=== PATIENT | female | born 1935 | race Caucasian/White ===

== ENCOUNTER 2016-08-09 03:51 | Emergency (ER) | payer OTHER ==
[~2016-08-09] VITALS: Ht 152.4 cm; Wt 62.0 kg
[~2016-08-09 03:51] MED LIST: CIPR500T4 PO; LOSA25TA31 PO; METR-1 PO; OMEP20TA PO
[2016-08-09 04:02] VITALS: BP 182/77; PULSE 75; RESP 18; O2SAT 98
[2016-08-09 04:06] VITALS: BP 138/71; PULSE 73; RESP 16; TEMP 98; O2SAT 97
--- NOTE | 2016-08-09 04:25 | PD ---
HPI Chief Complaint: Chest Pain Time Seen by Provider: 04:24 Travel History International Travel<30 days: No Contact w/Intl Traveler<30days: No Traveled to known affect area: No History of Present Illness HPI The patient is an 80-year-old female with no known history of heart disease who took Alvin aspirin and then a soft drink. She started to belch at approximately 0700 yesterday and began getting chest pain. She notices that when she lies down the pain comes on and when she sits up for a while the pain goes away. She denies any nausea, shortness of breath, diaphoresis or radiation of the pain. PFSH Past Medical History Asthma: Yes High Cholesterol: Yes Diabetes: Yes (DIET CONTROLLED) Patient Takes Glucophage: No GERD: Yes Hypertension: Yes Immunizations Current: Yes Influenza Vaccination: No Menopausal: Yes Past Surgical History Appendectomy: Yes Cholecystectomy: Yes Hysterectomy: Yes Social History Alcohol Use: No Tobacco Use: No Substance Use: No Allergies-Medications (Allergen,Severity, Reaction): Coded Allergies: Lipitor (Verified Allergy, Severe, MUSCLE PAIN, 08/09/16) Lovastatin (Verified Allergy, Severe, MUSCLE SPASM/PAIN, 08/09/16) Reported Meds & Prescriptions Reported Meds & Active Scripts Active Flagyl (Metronidazole) 500 Mg Tab 500 Mg PO BID Cipro (Ciprofloxacin HCl) 500 Mg Tab 500 Mg PO BID 7 Days Reported Cozaar (Losartan Potassium) 25 Mg Tab 25 Mg PO DAILY Omeprazole 20 mg (Omeprazole) 20 Mg Tab 20 Mg PO DAILY Review of Systems Except as stated in HPI: all other systems reviewed are Neg Physical Exam Narrative GENERAL: The patient is alert, oriented 3 in no apparent distress. Her vital signs show blood pressure 182/77 but are otherwise normal. The patient appears pale and anemic. SKIN: Focused skin assessment warm/dry. No skin rash is noted. HEAD: Atraumatic. Normocephalic. EYES: Pupils equal and round. No scleral icterus. No injection or drainage. ENT: No nasal bleeding or discharge. Mucous membranes pink and moist. NECK: Trachea midline. No JVD. CARDIOVASCULAR: Regular rate and rhythm. No murmur appreciated. RESPIRATORY: No accessory muscle use. Clear to auscultation. Breath sounds equal bilaterally. GASTROINTESTINAL: Abdomen soft, with tenderness to direct palpation in the midline epigastrium, nondistended. Hepatic and splenic margins not palpable. No guarding or rebound is present. MUSCULOSKELETAL: No obvious deformities. No clubbing. No cyanosis. No edema. NEUROLOGICAL: Awake and alert. No obvious cranial nerve deficits. Motor grossly within normal limits. Normal speech. PSYCHIATRIC: Appropriate mood and affect; insight and judgment normal. Data Data Last Documented VS Vital Signs Date Time Temp Pulse Resp B/P Pulse Ox O2 Delivery O2 Flow Rate FiO2 08/09/16 05:39 69 16 123/53 98 Room Air 08/09/16 04:06 98.0 Orders Electrocardiogram (08/09/16 04:25) Ckmb (Isoenzyme) Profile (08/09/16 04:25) Complete Blood Count With Diff (08/09/16 04:25) Comprehensive Metabolic Panel (08/09/16 04:25) Magnesium (Mg) (08/09/16 04:25) Troponin I (08/09/16 04:25) Ecg Monitoring (08/09/16 04:25) Iv Access Insert/Monitor (08/09/16 04:25) Oximetry (08/09/16 04:25) Oxygen Administration (08/09/16 04:25) Sodium Chloride 0.9% Flush (Ns Flush) (08/09/16 04:30) Chest, Pa & Lat (08/09/16 04:25) Famotidine (Pepcid) (08/09/16 04:30) Al-Mag Hy-Si 40-40-4 Mg/Ml Liq (Mag-Al P (08/09/16 04:30) Labs Laboratory Tests Test 08/09/16 04:25 White Blood Count 7.4 TH/MM3 Red Blood Count 4.13 MIL/MM3 Hemoglobin 8.5 GM/DL Hematocrit 28.5 % Mean Corpuscular Volume 68.9 FL Mean Corpuscular Hemoglobin 20.7 PG Mean Corpuscular Hemoglobin 30.0 % Concent Red Cell Distribution Width 18.0 % Platelet Count 161 TH/MM3 Mean Platelet Volume 11.1 FL Neutrophils (%) (Auto) 55.2 % Lymphocytes (%) (Auto) 23.3 % Monocytes (%) (Auto) 14.7 % Eosinophils (%) (Auto) 5.2 % Basophils (%) (Auto) 1.6 % Neutrophils # (Auto) 4.1 TH/MM3 Lymphocytes # (Auto) 1.7 TH/MM3 Monocytes # (Auto) 1.1 TH/MM3 Eosinophils # (Auto) 0.4 TH/MM3 Basophils # (Auto) 0.1 TH/MM3 CBC Comment AUTO DIFF Differential Comment AUTO DIFF CONFIRMED Platelet Estimate NORMAL Platelet Morphology Comment ENLARGED Sodium Level 143 MEQ/L Potassium Level 3.7 MEQ/L Chloride Level 109 MEQ/L Carbon Dioxide Level 27.3 MEQ/L Anion Gap 7 MEQ/L Blood Urea Nitrogen 10 MG/DL Creatinine 0.68 MG/DL Estimat Glomerular Filtration 83 ML/MIN Rate Random Glucose 121 MG/DL Calcium Level 8.9 MG/DL Magnesium Level 1.9 MG/DL Total Bilirubin 0.3 MG/DL Aspartate Amino Transf 33 U/L (AST/SGOT) Alanine Aminotransferase 19 U/L (ALT/SGPT) Alkaline Phosphatase 194 U/L Total Creatine Kinase 89 U/L Troponin I LESS THAN 0.02 NG/ML Total Protein 7.7 GM/DL Albumin 3.5 GM/DL MDM Medical Decision Making Medical Screen Exam Complete: Yes Emergency Medical Condition: Yes Medical Record Reviewed: Yes Interpretation(s) The EKG shows sinus rhythm with a rate of [address] elevation or depression. The chest x-ray shows no acute disease. The CBC shows a hemoglobin of 8.5 with hematocrit of 28.5 but is otherwise unremarkable. The MCV, MCH and MCHC values are all low. The complete metabolic profile shows an alkaline phosphatase of 194 but is otherwise normal. The troponin I is less than 0.02. The urine shows trace ketones, small leukocyte esterase with 9-14 white cells and occasional white cell clumping's and few bacteria and culture is indicated. Differential Diagnosis GERD, acute coronary syndromeunlikely, esophageal pain, pleuritic pain, gastrointestinal pain, musculoskeletal pain, anemia, electrolyte disorder, urinary tract infection Narrative Course The patient has gastro- esophageal reflux disease. She also has a chronic anemia and the hemoglobin is now 8.5. About a year ago was 9.4. The parameter suggest iron deficiency type anemia. She also has a urinary tract infection. She'll be given Macrobid twice daily for 10 days, Zantac, elevate the head of her bed, follow-up with her primary care physician this week about the anemia Procedures EKG Prior to Arrival: No Diagnosis Primary Impression: Anemia Additional Impressions: GERD with esophagitis Urinary tract infection Additional Instructions: As we discussed, follow-up with your primary care physician this week about the anemia. In the meantime, you should take vitamins with iron. The urinary antibiotic is one tablet twice daily for 10 days and the Zantac is twice daily. The Zantac is to cut down on the acid in her stomach. Zantac works along with omeprazole to do this. Also, try to avoid the lying flat position. Elevate the head of your bed so that the gastric acid cannot reach your esophagus. Med/Other Pt SpecificInfo: Prescription(s) given Scripts Nitrofurantoin Monohydrate Macrocrystals (Macrobid)100 Mg [id number] Mg PO BID 10 Days Ref 0 Prov:Bakari Gonzalez MD 08/09/16 Ranitidine (Zantac)150 Mg [id number] Mg PO BID #60 TAB Ref 0 Prov:Bakari Gonzalez MD 08/09/16 Disposition: 01 DISCHARGE HOME Condition: Stable Bakari Gonzalez MD August 09, 2016 04:25
[2016-08-09] MEDS ORDERED: FAMOTIDINE 20 MG TAB PO ONE (04:30)
[2016-08-09] MEDS ORDERED: SODIUM CHLORIDE 0.9% FLUSH 10 ML FLUSH IVF PRN (04:30)
[2016-08-09] MEDS ORDERED: ALUMINUM/MAGNESIUM/SIMETH 30 ML CUP PO ONE (04:30)
[2016-08-09 04:43] LABS: AUTOMATED NEUTROPHIL # 4.1 TH/MM3 (1.8-7.7); BASOPHIL # 0.1 TH/MM3 (0-0.2); BASOPHIL % 1.6 % (0.0-2.0); EOSINOPHIL # 0.4 TH/MM3 (0-0.4); EOSINOPHIL % 5.2 % (0.0-4.0); HEMATOCRIT 28.5 % (35.0-46.0); LYMPH % 23.3 % (9.0-44.0); LYMPHOCYTE # 1.7 TH/MM3 (1.0-4.8); MEAN CELL VOLUME 68.9 FL (80.0-100.0); MEAN CORPUSCULAR HEMOGLOBIN 20.7 PG (27.0-34.0); MONO % 14.7 % (0.0-8.0); NEUT % 55.2 % (16.0-70.0); PLATELET COUNT 161 TH/MM3 (150-450); RED BLOOD COUNT 4.13 MIL/MM3 (4.00-5.30); WHITE BLOOD COUNT 7.4 TH/MM3 (4.0-11.0)
[2016-08-09 04:47] LABS: HEMO FLAGS AUTO DIFF
[2016-08-09 04:49] LABS: CHLORIDE 109 MEQ/L (98-107); POTASSIUM 3.7 MEQ/L (3.5-5.1); SODIUM (NA) 143 MEQ/L (136-145)
[2016-08-09 04:53] LABS: ANION GAP 7 MEQ/L (5-15); BICARBONATE 27.3 MEQ/L (21.0-32.0); BLOOD UREA NITROGEN 10 MG/DL (7-18); MAGNESIUM 1.9 MG/DL (1.5-2.5)
[2016-08-09 04:56] LABS: ALT (GPT) 19 U/L (10-53); AST (GOT) 33 U/L (15-37); GLOMERULAR FILTRATION RATE 83 ML/MIN (>89)
[2016-08-09 04:58] LABS: TOTAL BILIRUBIN ADULT 0.3 MG/DL (0.2-1.0)
[2016-08-09 04:59] LABS: ALKALINE PHOSPHATASE 194 U/L (45-117)
--- NOTE | 2016-08-09 05:01 | RADHPO ---
EXAM DATE/TIME: 08/09/2016 04:36 [facility] COMPARISON: CHEST SINGLE AP, November 22, 2013, 16:40. CT ABDOMEN & PELVIS W CONTRAST, July 19, 2015, 12:16. INDICATIONS : Chest pain MEDICAL HISTORY : Hypertension. Diabetes mellitus type II. SURGICAL HISTORY : Hysterectomy. Cholecystectomy. ENCOUNTER: Initial ACUITY: 1 day PAIN SCORE: 7/10 LOCATION: Left chest FINDINGS: PA and lateral views of the chest demonstrate the lungs to be symmetrically aerated without evidence of mass, infiltrate or effusion. The cardiomediastinal contours are unremarkable. Osseous structure s are intact. CONCLUSION: No acute disease. Demetrius Pineda MD on August 09, 2016 at 4:59 Board Certified Radiologist. This report was verified electronically.
[2016-08-09 05:31] LABS: PLATELET ESTIMATE SMEAR NORMAL (NORMAL); PLATELET MORPHOLOGY ENLARGED (NORMAL); SCAN/DIFF AUTO DIFF CONFIRMED
[2016-08-09 05:32] LABS: CREATINE KINASE 89 U/L (26-192)
[2016-08-09 05:39] VITALS: BP 123/53; PULSE 69; RESP 16; O2SAT 98
[2016-08-09] MEDS ORDERED: ZANT150T2 PO (06:04)
[2016-08-09] MEDS ORDERED: MACR100C2 PO (06:04)
[2016-08-09] MEDS ORDERED: NITROFURANTOIN MONOHYD MACROCR 100 MG CAP PO ONE (06:15)
--- NOTE | 2016-08-09 11:20 | EKG ---
Date Performed: 08/09/2016 Time Performed: 03:52:02 PTAGE: 80 years EKG: Sinus rhythm Inferior/lateral ST-T changes are nonspecific Borderline ECG Compared to prior electrocardiogram,ST- T wave changes are present and premature atrial contractions are no longer present. PREVIOUS TRACING : 11/22/2013 16.23 DOCTOR: Dallas Mancia Interpretating Date/Time 08/09/2016 11:19:37
== END 2016-08-09 06:21 | disposition home or self-care (01) ==
LOC: PHED 03:51
DX: D64.9 Anemia, unspecified (principal); K21.0 Gastro-esophageal reflux disease with esophagitis; N39.0 Urinary tract infection, site not specified; J45.909 Unspecified asthma, uncomplicated; E78.00 Pure hypercholesterolemia, unspecified; E11.9 Type 2 diabetes mellitus without complications; I10 Essential (primary) hypertension; Z79.899 Other long term (current) drug therapy
CPT/HCPCS: 71020; 80053; 82550; 83735; 84484; 85025; 93005; 99285

== ENCOUNTER 2016-09-20 12:06 | Inpatient (IN) | payer OTHER, MEDICARE ==
[~2016-09-20] VITALS: Ht 152.4 cm; Wt 64.0 kg
[~2016-09-20 12:06] MED LIST changes: +MACR100C2 PO; +ZANT150T2 PO
[2016-09-20 12:08] VITALS: BP 165/70; PULSE 90; RESP 20; TEMP 98.4; O2SAT 97
--- NOTE | 2016-09-20 12:13 | PD ---
Physical Exam Time Seen by Provider: 12:10 Narrative 80 y/o female here for evaluation of diarrhea for 2 days, lower abdominal pain for 2 weeks. +nausea, decreased appetite. Vital signs reviewed. Seen at triage desk. Awaiting bed placement. Data Data Last Documented VS Vital Signs Date Time Temp Pulse Resp B/P Pulse Ox O2 Delivery O2 Flow Rate FiO2 09/20/16 12:08 98.4 90 20 165/70 97 Room Air [facility] Medical Record Reviewed: Yes Supervised Visit with SYLVIA: Timi No Sep 20, 2016 12:13
[2016-09-20] MEDS ORDERED: LOSA25TA PO (12:29)
[2016-09-20] MEDS ORDERED: OMEP20TA PO (12:29)
[2016-09-20] MEDS ORDERED: SODIUM CHLOR 0.9% 1000 ML INJ 1,000 ML IV SCH (12:37)
--- NOTE | 2016-09-20 12:37 | PD ---
HPI Chief Complaint: Abdominal Pain Time Seen by Provider: 12:37 Travel History International Travel<30 days: No Contact w/Intl Traveler<30days: No Traveled to known affect area: No History of Present Illness HPI 80-year-old female with history of hypertension, asthma, diabetes, presents to the emergency department for evaluation of abdominal pain. Patient states approximately 6 weeks ago she was diagnosed with a UTI. She was started on oral antibiotics and subsequently developed diarrhea. Patient states she has developed increasing abdominal pain or across the lower aspect of her abdomen over the last 2-3 days. No black tarry her frequent stools. Patient has also had no appetite. She states she has only had a piece of dry toast today. She has no other symptoms to report this time. [facility] Past Medical History Asthma: Yes Cardiovascular Problems: Yes (htn) High Cholesterol: Yes Diabetes: Yes (DIET CONTROLLED) Patient Takes Glucophage: No Diminished Hearing: No GERD: Yes Hypertension: Yes Immunizations Current: Yes Tetanus Vaccination: > 5 Years Influenza Vaccination: No Menopausal: Yes Past Surgical History Appendectomy: Yes Cholecystectomy: Yes Hysterectomy: Yes Social History Alcohol Use: No Tobacco Use: No Substance Use: No (pt denies) Allergies-Medications (Allergen,Severity, Reaction): Coded Allergies: Lipitor (Verified Allergy, Severe, MUSCLE PAIN, 09/20/16) Lovastatin (Verified Allergy, Severe, MUSCLE SPASM/PAIN, 09/20/16) Reported Meds & Prescriptions Reported Meds & Active Scripts Active Reported Omeprazole 20 Mg Tab 20 Mg PO DAILY Losartan (Losartan Potassium) 25 Mg Tab 25 Mg PO DAILY Review of Systems Except as stated in HPI: all other systems reviewed are Neg Physical Exam Narrative GENERAL: Well-nourished elderly female patient, sitting in bed, in no acute distress SKIN: Focused skin assessment warm/dry. HEAD: Atraumatic. Normocephalic. EYES: Pupils equal and round. No scleral icterus. No injection or drainage. ENT: No nasal bleeding or discharge. Mucous membranes pink and moist. NECK: Trachea midline. No JVD. CARDIOVASCULAR: Regular rate and rhythm. No murmur appreciated. RESPIRATORY: No accessory muscle use. Clear to auscultation. Breath sounds equal bilaterally. GASTROINTESTINAL: Abdomen soft, nondistended. Generalized tenderness to palpation of the abdomen, greater right upper and lower quadrant. No guarding. No rebound tenderness. Hepatic and splenic margins not palpable. MUSCULOSKELETAL: No obvious deformities. No clubbing. No cyanosis. No edema. NEUROLOGICAL: Awake and alert. No obvious cranial nerve deficits. Motor grossly within normal limits. Normal speech. PSYCHIATRIC: Appropriate mood and affect; insight and judgment normal. Data Data Last Documented VS Vital Signs Date Time Temp Pulse Resp B/P Pulse Ox O2 Delivery O2 Flow Rate FiO2 09/20/16 12:38 16 98 Room Air 09/20/16 12:08 98.4 90 165/70 Orders Complete Blood Count With Diff (09/20/16 12:37) Comprehensive Metabolic Panel (09/20/16 12:37) Lipase (09/20/16 12:37) Prothrombin Time / Inr (Pt) (09/20/16 12:37) Act Partial Throm Time (Ptt) (09/20/16 12:37) Urinalysis - C+S If Indicated (09/20/16 12:37) Ct Abd/Pel W Iv Contrast(Rout) (09/20/16 12:37) Iv Access Insert/Monitor (09/20/16 12:37) Ecg Monitoring (09/20/16 12:37) Oximetry (09/20/16 12:37) Sodium Chlor 0.9% 1000 Ml Inj (Ns 1000 M (09/20/16 12:37) Sodium Chloride 0.9% Flush (Ns Flush) (09/20/16 12:45) Electrocardiogram (09/20/16 12:37) C Diff Toxin Pcr (09/20/16 13:24) Urine Culture (09/20/16 12:40) Iohexol 350 Inj (Omnipaque 350 Inj) (09/20/16 16:07) Lactic Acid Sepsis Protocol (09/20/16 16:30) Blood Culture (09/20/16 16:30) Blood Glucose (09/20/16 16:30) Oxygen Administration (09/20/16 16:30) Piperacil-Tazo 4.5 Gm Premix (Zosyn 4.5 (09/20/16 16:30) Metronidazole 500 Mg Inj (Flagyl 500 Mg (09/20/16 16:30) Admit Order (Ed Use Only) (09/20/16 16:53) Labs Laboratory Tests Test 09/20/16 09/20/16 12:40 16:50 White Blood Count 14.5 TH/MM3 Red Blood Count 4.22 MIL/MM3 Hemoglobin 8.9 GM/DL Hematocrit 29.6 % Mean Corpuscular Volume 70.1 FL Mean Corpuscular Hemoglobin 21.0 PG Mean Corpuscular Hemoglobin 30.0 % Concent Red Cell Distribution Width 20.7 % Platelet Count 167 TH/MM3 Mean Platelet Volume 10.7 FL Neutrophils (%) (Auto) 67.8 % Lymphocytes (%) (Auto) 12.2 % Monocytes (%) (Auto) 17.7 % Eosinophils (%) (Auto) 1.7 % Basophils (%) (Auto) 0.6 % Neutrophils # (Auto) 9.8 TH/MM3 Lymphocytes # (Auto) 1.8 TH/MM3 Monocytes # (Auto) 2.6 TH/MM3 Eosinophils # (Auto) 0.2 TH/MM3 Basophils # (Auto) 0.1 TH/MM3 CBC Comment AUTO DIFF Differential Comment AUTO DIFF CONFIRMED Platelet Estimate NORMAL Platelet Morphology Comment ENLARGED Prothrombin Time 12.0 SEC Prothromb Time International 1.1 RATIO Ratio Activated Partial 25.6 SEC Thromboplast Time Urine Color YELLOW Urine Turbidity HAZY Urine pH 5.5 Urine Specific [place] 1.017 Urine Protein TRACE mg/dL Urine Glucose (UA) NEG mg/dL Urine Ketones NEG mg/dL Urine Occult Blood NEG Urine Nitrite NEG Urine Bilirubin NEG Urine Urobilinogen 2.0 MG/DL Urine Leukocyte Esterase MOD Urine RBC 2 /hpf Urine WBC 15 /hpf Urine Squamous Epithelial 2 /hpf Cells Urine Hyaline Casts 1 /lpf Urine Mucus FEW /lpf Microscopic Urinalysis Comment CULTURE INDICATED Sodium Level 140 MEQ/L Potassium Level 4.0 MEQ/L Chloride Level 107 MEQ/L Carbon Dioxide Level 26.4 MEQ/L Anion Gap 7 MEQ/L Blood Urea Nitrogen 9 MG/DL Creatinine 0.72 MG/DL Estimat Glomerular Filtration 78 ML/MIN Rate Random Glucose 115 MG/DL Calcium Level 9.3 MG/DL Iron Level 36 MCG/DL Total Iron Binding Capacity 416 MCG/DL Percent Iron Saturation 8.7 % Ferritin 44 NG/ML Total Bilirubin 0.7 MG/DL Aspartate Amino Transf 84 U/L (AST/SGOT) Alanine Aminotransferase 34 U/L (ALT/SGPT) Alkaline Phosphatase 297 U/L Total Protein 7.7 GM/DL Albumin 3.1 GM/DL Lipase 147 U/L Lactic Acid Level 0.9 mmol/L [facility] Medical Decision Making Medical Screen Exam Complete: Yes Emergency Medical Condition: Yes Medical Record Reviewed: Yes Differential Diagnosis Cystitis versus pyelonephritis versus cholecystitis versus gastroenteritis versus colitis versus diverticulitis Narrative Course 80-year-old female presents to the emergency department for evaluation. Patient appears without distress. Her abdomen is soft but tender to palpate. Vital signs are stable. CBC is with leukocytosis of 14.5, neutrophilia of 9.8. Anemia with a hemoglobin of 8.9. CMP is with elevated AST 84, alkaline phosphatase is 297. Urinalysis is hazy with moderate leukocyte esterase, 15 WBC , few mucus, culture is indicated. Chest x-ray shows no acute disease. CT imaging of the abdomen and pelvis shows left hepatic lobe low attenuating mass may represent necrotic malignancy or abscess. Findings are suspicious for acute diverticulitis of sigmoid colon and the left hepatic lobe lesion could potentially be infection seeded from the colon. Underlying colonic malignancy however is difficult to exclude. There is hydronephrosis of the left kidney and hydroureter related to distal ureteral obstruction of above-mentioned inflammatory process. I have discussed the patient with Dr. Majano, general surgeon on-call. He requests mission the medicine and will consult on the patient. Patient is also given IV Zosyn and Flagyl. I have discussed with the patient her findings and plan for admission for further evaluation. She is in agreement with this plan of care. Diagnosis Primary Impression: Liver mass, left lobe Additional Impressions: Leukocytosis Qualified Code: D72.829 - Leukocytosis, unspecified type Anemia Qualified Code: D64.9 - Anemia, unspecified type Diverticulitis Qualified Code: K57.32 - Diverticulitis of large intestine without bleeding, unspecified complication status Admitting Information Admitting Physician Requests: Admit Condition: Stable Lavonne Russo Sep 20, 2016 12:37
[2016-09-20 12:38] VITALS: RESP 16; O2SAT 98
[2016-09-20] MEDS ORDERED: SODIUM CHLORIDE 0.9% FLUSH 10 ML FLUSH IV FLUSH PRN (12:45)
[2016-09-20 13:21] LABS: AUTOMATED NEUTROPHIL # 9.8 TH/MM3 (1.8-7.7); BASOPHIL # 0.1 TH/MM3 (0-0.2); BASOPHIL % 0.6 % (0.0-2.0); EOSINOPHIL # 0.2 TH/MM3 (0-0.4); EOSINOPHIL % 1.7 % (0.0-4.0); HEMATOCRIT 29.6 % (35.0-46.0); LYMPH % 12.2 % (9.0-44.0); LYMPHOCYTE # 1.8 TH/MM3 (1.0-4.8); MEAN CELL VOLUME 70.1 FL (80.0-100.0); MONO % 17.7 % (0.0-8.0); NEUT % 67.8 % (16.0-70.0); PLATELET COUNT 167 TH/MM3 (150-450); RED BLOOD COUNT 4.22 MIL/MM3 (4.00-5.30); RED CELL DISTRIBUTION WIDTH 20.7 % (11.6-17.2); WHITE BLOOD COUNT 14.5 TH/MM3 (4.0-11.0)
[2016-09-20 13:27] LABS: HEMO FLAGS AUTO DIFF
[2016-09-20 13:34] LABS: BLOOD, URINE NEG (NEG); COMMENT (UR) CULTURE INDICATED; CULTURE IF INDICATED CULTURE INDICATED; GLUCOSE,URINE NEG (NEG); HYALINE CAST, URINE 1 /lpf (RARE); KETONE, URINE NEG (NEG); MUCUS URINE FEW /lpf (OCC); NITRITE,URINE NEG (NEG); PH, URINE 5.5 (5.0-8.5); SQUAMOUS EPITHELIAL CELL URINE 2 /hpf (0-5); URINE COLOR YELLOW (YELLW/STRAW)
[2016-09-20 13:35] LABS: APTT (PATIENT) 25.6 SEC (24.3-30.1); INTERNATIONAL NORMALIZED RATIO 1.1 RATIO
[2016-09-20 13:43] LABS: ALKALINE PHOSPHATASE 297 U/L (45-117); ALT (GPT) 34 U/L (10-53); TOTAL BILIRUBIN ADULT 0.7 MG/DL (0.2-1.0)
[2016-09-20 13:45] LABS: ANION GAP 7 MEQ/L (5-15); AST (GOT) 84 U/L (15-37); BICARBONATE 26.4 MEQ/L (21.0-32.0); BLOOD UREA NITROGEN 9 MG/DL (7-18); CHLORIDE 107 MEQ/L (98-107); GLOMERULAR FILTRATION RATE 78 ML/MIN (>89); SODIUM (NA) 140 MEQ/L (136-145)
[2016-09-20 13:55] LABS: PLATELET ESTIMATE SMEAR NORMAL (NORMAL); PLATELET MORPHOLOGY ENLARGED (NORMAL); SCAN/DIFF AUTO DIFF CONFIRMED
[2016-09-20] MEDS ORDERED: IOHEXOL 350 MG/ML 10 ML VIAL (for RAD DIAG) IV ONE (16:07)
--- NOTE | 2016-09-20 16:28 | RADRPT ---
EXAM DATE/TIME: 09/20/2016 15:39 [facility] COMPARISON: CT ABDOMEN & PELVIS W CONTRAST, July 19, 2015, 12:16. INDICATIONS : Lower abdomen pain, increasing pain with eating and drinking. IV CONTRAST: 100 cc Omnipaque 350 (iohexol) IV ORAL CONTRAST: No oral contrast ingested. RADIATION DOSE: 11.89 CTDIvol (mGy) MEDICAL HISTORY : Cardiovascular disease. Hypertension. Diabetes SURGICAL HISTORY : Appendectomy. Cholecystectomy.Hysterectomy. ENCOUNTER: Initial ACUITY: 1 day PAIN SCALE: 4/10 LOCATION: Abdomen TECHNIQUE: Volumetric scanning of the abdomen and pelvis was performed. Using automated exposure control and ad justment of the mA and/or kV according to patient size, radiation dose was kept as low as reasonably achievable to obtain optimal diagnostic quality images. DICOM format image data is available electro nically for review and comparison. FINDINGS: CT Abdomen: An approximate 7.2 cm low attenuating mass is present in the left hepatic lobe not presen t previously. It could represent an abscess or necrotic malignancy. The spleen, pancreas, kidneys, ad renals are unremarkable. There is no evidence for any appreciable pathological adenopathy, free fluid , or bowel obstruction. Slight degree of somewhat linear irregular opacity is seen in bilateral lung bases mostly consistent with scarring. There is slight to moderate hydronephrosis and hydroureter in the left kidney related to inflammatory changes in the pelvis. CT pelvis: There is no evidence for mass, abscess formation, or any significant adenopathy within the pelvis. There is slight fluid in the cul-de-sac with inflammation surrounding the sigmoid colon and numerous diverticuli highly suspicious for diverticulitis. CONCLUSION: 1. Left hepatic lobe low attenuating mass may represent necrotic malignancy or abscess. 2. Findings there is suspicious for acute diverticulitis of sigmoid colon and the left hepatic lobe l esion could potentially be infection seated from the colon. Underlying colonic malignancy however is difficult to exclude. 3. There is hydronephrosis in the left kidney and hydroureter related to distal ureteral obstruction from above mentioned inflammatory process. Eladio Emanuel MD on September 20, 2016 at 16:21 Board Certified Radiologist. This report was verified electronically.
[2016-09-20] MEDS ORDERED: metroNIDAZOLE 500 MG INJ 100 ML IV STA (16:30)
[2016-09-20] MEDS ORDERED: PIPERACIL-TAZO 4.5 GM PREMIX 100 ML IV STA (16:30)
[2016-09-20 16:59] VITALS: BP 178/70; PULSE 79; RESP 19; O2SAT 96
--- NOTE | 2016-09-20 18:13 | HHI.HP ---
[facility] Service [facility] Primary Care Physician Danial Araujo MD Admission Diagnosis Abdominal pain; Liver mass/abscess Diagnoses: Chief Complaint: Lower abdominal pain Travel History International Travel<30 Days: No Contact w/Intl Traveler <30 Da: No Traveled to Known Affected Are: No History of Present Illness Patient is an 80-year-old female with history of hypertension diabetes type 2 who states had been having on and off abdominal lower abdominal discomfort the past 2 weeks now associated with poor by mouth appetite. Patient denies any fever but feels cold. Was seen sometime in July judicious lower abdominal pain and was prescribed antibiotics for 7-10 days. She also states history of constipation. Has been self-medicating with apax-[id number] stool softeners, prune juice,. At one point was told that she might have irritable bowel syndrome. Persistence of this lower abdominal pain prompted consult to ER and was admitted for further evaluation. Patient states positive weight loss. For about 8 pounds. Denies any actual vomiting mild nausea patient still states that she still does passively prophylaxis. Denies any fever or chills. Never had a colonoscopy in the past. Review of Systems Constitutional: DENIES: Fever, Weight loss, Chills, Change in appetite Eyes: DENIES: Blurred vision, Double Vision Ears, nose, mouth, throat: DENIES: Tinnitus, Ear Pain, Epistaxis, Odynophagia Respiratory: DENIES: Cough, Hemoptysis, Sputum production, Shortness of breath Cardiovascular: DENIES: Chest pain, Palpitations, Dyspnea on Exertion, Lower Extremity Edema, Orthopnea Gastrointestinal: DENIES: Black stools, Bloody stools, Difficulty Swallowing, Anorexia Genitourinary: DENIES: Urgency, Hematuria, Vaginal discharge Musculoskeletal: DENIES: Joint pain, Stiffness Integumentary: DENIES: Pruritus Hematologic/lymphatic: DENIES: Bruising Immunologic/allergic: DENIES: Urticaria Neurologic: DENIES: Headache, Speech Problems, Tremor Psychiatric: DENIES: Suicidal Ideation, Homicidal Ideation Past Family Social History Past Medical History Gastritis/reflux Hypertension Past Surgical History Gallbladder surgery Appendectomy Total abdominal hysterectomy and bilateral salpingo-oophorectomy Reported Medications Omeprazole 20 mg daily losartan 25 mg daily Multivitamins [id number]-mchrfnf Was taking yrxx-skd-sjdtoic laxatives and stool softeners. Allergies: Coded Allergies: Lipitor (Verified Allergy, Severe, MUSCLE PAIN, 09/20/16) Lovastatin (Verified Allergy, Severe, MUSCLE SPASM/PAIN, 09/20/16) Family History Denies any family history of colon cancer or any form of malignancies. Social History No history of smoking Very occasional wine Physical Exam Vital Signs Vital Signs Date Time Temp Pulse Resp B/P Pulse Ox O2 Delivery O2 Flow Rate FiO2 09/20/16 16:59 79 19 178/70 96 Room Air 09/20/16 16:58 96 Room Air 09/20/16 12:38 16 98 Room Air 09/20/16 12:23 16 09/20/16 12:08 98.4 90 20 165/70 97 Room Air Physical Exam GENERAL: This is a well-nourished, well-developed patient, in no apparent distress. SKIN: No rashes, ecchymoses or lesions. Cool and dry. HEAD: Atraumatic. Normocephalic. No temporal or scalp tenderness. EYES: Pupils equal round and reactive. Extraocular motions intact. No scleral icterus. No injection or drainage. ENT: Nose without bleeding, purulent drainage or septal hematoma. Throat without erythema, tonsillar hypertrophy or exudate. Uvula midline. Airway patent. NECK: Trachea midline. No JVD or lymphadenopathy. Supple, nontender, no meningeal signs. CARDIOVASCULAR: Regular rate and rhythm without murmurs, gallops, or rubs. RESPIRATORY: Clear to auscultation. Breath sounds equal bilaterally. No wheezes , rales, or rhonchi. GASTROINTESTINAL: Abdomen soft, mildly distended positive tenderness on the lower abdominal most on the left lower quadrant area MUSCULOSKELETAL: Extremities without clubbing, cyanosis, or edema. No joint tenderness, effusion, or edema noted. No calf tenderness. Negative Homans sign bilaterally. NEUROLOGICAL: Awake and alert. Cranial nerves II through XII intact. Motor and sensory grossly within normal limits. Five out of 5 muscle strength in all muscle groups. Normal speech. Laboratory Laboratory Tests Test 09/20/16 09/20/16 12:40 16:50 White Blood Count 14.5 Red Blood Count 4.22 Hemoglobin 8.9 Hematocrit 29.6 Mean Corpuscular Volume 70.1 Mean Corpuscular Hemoglobin 21.0 Mean Corpuscular Hemoglobin 30.0 Concent Red Cell Distribution Width 20.7 Platelet Count 167 Mean Platelet Volume 10.7 Neutrophils (%) (Auto) 67.8 Lymphocytes (%) (Auto) 12.2 Monocytes (%) (Auto) 17.7 Eosinophils (%) (Auto) 1.7 Basophils (%) (Auto) 0.6 Neutrophils # (Auto) 9.8 Lymphocytes # (Auto) 1.8 Monocytes # (Auto) 2.6 Eosinophils # (Auto) 0.2 Basophils # (Auto) 0.1 CBC Comment AUTO DIFF Differential Comment AUTO DIFF CONFIRMED Platelet Estimate NORMAL Platelet Morphology Comment ENLARGED Prothrombin Time 12.0 Prothromb Time International 1.1 Ratio Activated Partial 25.6 Thromboplast Time Urine Color YELLOW Urine Turbidity HAZY Urine pH 5.5 Urine Specific [place] 1.017 Urine Protein TRACE Urine Glucose (UA) NEG Urine Ketones NEG Urine Occult Blood NEG Urine Nitrite NEG Urine Bilirubin NEG Urine Urobilinogen 2.0 Urine Leukocyte Esterase MOD Urine RBC 2 Urine WBC 15 Urine Squamous Epithelial 2 Cells Urine Hyaline Casts 1 Urine Mucus FEW Microscopic Urinalysis Comment CULTURE INDICATED Sodium Level 140 Potassium Level 4.0 Chloride Level 107 Carbon Dioxide Level 26.4 Anion Gap 7 Blood Urea Nitrogen 9 Creatinine 0.72 Estimat Glomerular Filtration 78 Rate Random Glucose 115 Calcium Level 9.3 Total Bilirubin 0.7 Aspartate Amino Transf 84 (AST/SGOT) Alanine Aminotransferase 34 (ALT/SGPT) Alkaline Phosphatase 297 Total Protein 7.7 Albumin 3.1 Lipase 147 Lactic Acid Level 0.9 Date/Time Procedure Status Source Growth 09/20/16 16:55 Aerobic Blood Culture Received Blood Peripheral Pending 09/20/16 16:55 Anaerobic Blood Culture Received Blood Peripheral Pending 09/20/16 12:40 Urine Culture Received Urine Clean Catch Pending Result Diagram: 09/20/16 1240 09/20/16 1240 Imaging Last Impressions Abdomen/Pelvis CT 09/20/16 1237 Signed Impressions: Service Date/Time: Tuesday, September 20, 2016 15:39 - CONCLUSION: 1. Left hepatic lobe low attenuating mass may represent necrotic malignancy or abscess. 2. Findings there is suspicious for acute diverticulitis of sigmoid colon and the left hepatic lobe lesion could potentially be infection seated from the colon. Underlying colonic malignancy however is difficult to exclude. 3. There is hydronephrosis in the left kidney and hydroureter related to distal ureteral obstruction from above mentioned inflammatory process. Eladio Emanuel MD Assessment and Plan Assessment and Plan 80-year-old female presenting with anorexia or weight loss or abdominal pain on and off constipation for the past since July treated as an outpatient for acute diverticulitis now presenting with persistence lower abdominal pain Acute diverticulitis rule out malignancy and rule out abscess. Hepatic masses rule out abscess versus malignancy Get tumor markers alpha-fetoprotein CEA CA-125 Patient started on IV Zosyn will continue at 3.375 mg every 6 Consult colorectal surgery for evaluation and recommendation We'll discuss with CRS- to proceed with CT-guided aspiration to rule out abscess versus mass or resection Start IV fluids with potassium When necessary IV pain meds Left hydronephrosis on CT secondary to mass effect check UA History of hypertension continue on Cozaar 25 mg daily Microcytic anemia will check baseline iron studies PPI for GI prophylaxis SCDs teds for DVT prophylaxis if no plans for surgery or procedure will start patient on Lovenox Discussed Condition With Patient Physician Certification 2 Midnight Certification Type: Admission for Inpatient Services Order for Inpatient Services The services are ordered in accordance with Medicare regulations or non- Medicare payer requirements, as applicable. In the case of services not specified as inpatient-only, they are appropriately provided as inpatient services in accordance with the 2-midnight benchmark. Estimated LOS (days): 3 days is the estimated time the patient will need to remain in the hospital, assuming treatment plan goals are met and no additional complications. Post-Hospital Plan: Not yet determined Kim Tristan MD Sep 20, 2016 18:13
--- NOTE | 2016-09-20 18:18 | RADRPT ---
EXAM DATE/TIME: 09/20/2016 17:54 [facility] COMPARISON: CHEST PA & LAT, August 09, 2016, 4:36. INDICATIONS : Short of breath MEDICAL HISTORY : Hypertension. Diabetes mellitus type II. SURGICAL HISTORY : Hysterectomy. Cholecystectomy. ENCOUNTER: Initial ACUITY: 2 weeks PAIN SCORE: 0/10 LOCATION: Bilateral chest FINDINGS: A single view of the chest demonstrates the lungs to be symmetrically aerated without evidence of mas s, infiltrate or effusion. The cardiomediastinal contours are unremarkable. Osseous structures are intact. CONCLUSION: No acute disease. Demetrius Pineda MD on September 20, 2016 at 18:16 Board Certified Radiologist. This report was verified electronically.
[2016-09-20 19:49] LABS: FERRITIN 44 NG/ML (8-252)
[2016-09-20 19:57] LABS: TRANSFERRIN IRON PROFILE 297 MG/DL (200-360)
[2016-09-20 20:00] VITALS: BP 153/68; PULSE 76; RESP 20; TEMP 98.3; O2SAT 96
[2016-09-20] MEDS: PIPERACIL-TAZO 3.375 GM PREMIX 50 ML IV SCH (20:36)
[2016-09-20] MEDS: PANTOPRAZOLE SODIUM 40 MG VIAL IV PUSH SCH (20:36)
[2016-09-20] MEDS: HYDROmorphone HCL PF 1 MG/ML VIAL IV PUSH PRN (20:37)
[2016-09-20] MEDS: POTASSIUM CHLORIDE INJ 10 MEQ in DEXT 5%-NACL 0.9% 1000 ML INJ 1,000 ML IV SCH (20:37)
[2016-09-21] VITALS: BP 143/67; PULSE 75; RESP 18; TEMP 97.2; O2SAT 95
[2016-09-21] MEDS: PIPERACIL-TAZO 3.375 GM PREMIX 50 ML IV SCH ×4 (03:05→21:26)
[2016-09-21] MEDS: HYDROmorphone HCL PF 1 MG/ML VIAL IV PUSH PRN (03:05)
[2016-09-21 08:00] VITALS: BP 157/73; PULSE 77; RESP 17; TEMP 96.3; O2SAT 96
--- NOTE | 2016-09-21 09:36 | HHI.PR ---
Subjective Remarks feeling better + flatus abdominal pain almost resolved Objective Vitals Vital Signs Date Time Temp Pulse Resp B/P Pulse Ox O2 Delivery O2 Flow Rate FiO2 09/21/16 08:00 96.3 77 17 157/73 96 09/21/16 00:00 97.2 75 18 143/67 95 09/20/16 20:00 98.3 76 20 153/68 96 09/20/16 16:59 79 19 178/70 96 Room Air 09/20/16 16:58 96 Room Air 09/20/16 12:38 16 98 Room Air 09/20/16 12:23 16 09/20/16 12:08 98.4 90 20 165/70 97 Room Air I/O 09/20/16 09/20/16 09/20/16 09/21/16 09/21/16 09/21/16 07:00 15:00 23:00 07:00 15:00 23:00 Intake Total 133 ml 385 ml Output Total 125 ml Balance 8 ml 385 ml Intake Oral 0 ml 0 ml IV Total 133 ml 385 ml Output Urine Total 125 ml # Voids 1 # Bowel Movements 1 Result Diagram: 09/20/16 1240 09/20/16 1240 Imaging Last Impressions Abdomen/Pelvis CT 09/20/16 1237 Signed Impressions: Service Date/Time: Tuesday, September 20, 2016 15:39 - CONCLUSION: 1. Left hepatic lobe low attenuating mass may represent necrotic malignancy or abscess. 2. Findings there is suspicious for acute diverticulitis of sigmoid colon and the left hepatic lobe lesion could potentially be infection seated from the colon. Underlying colonic malignancy however is difficult to exclude. 3. There is hydronephrosis in the left kidney and hydroureter related to distal ureteral obstruction from above mentioned inflammatory process. Eladio Emanuel MD Chest X-Ray 09/20/16 0000 Signed Impressions: Service Date/Time: Tuesday, September 20, 2016 17:54 - CONCLUSION: No acute disease. Demetrius Pineda MD Objective Remarks awake and alert, NAD anicteric lungs clear regular rhythm abdomen- soft, + bowel sounds, mild tenderness on deep palpation of the left lower wuadrant area extremities no edema A/P Assessment and Plan 80-year-old female presenting with anorexia or weight loss or abdominal pain on and off constipation for the past since July treated as an outpatient for acute diverticulitis now presenting with persistence lower abdominal pain Acute diverticulitis rule out malignancy and rule out abscess. Hepatic masses rule out abscess versus malignancy elevated tumor markers Patient started on IV Zosyn will continue at 3.375 mg every 6 Consulted colorectal surgery- d/w Dr. Deleon she will D/W IR- whether to proceed with MRI or CT-guided aspiration to rule out abscess versus mass or resection consider GI consult continue IV fluids with potassium When necessary IV pain meds Left hydronephrosis on CT secondary to mass effect. Microscopic hematuria- asymptomatic UA negative History of hypertension continue on Cozaar 25 mg daily Microcytic anemia will check baseline iron studies PPI for GI prophylaxis SCDs teds for DVT prophylaxis if no plans for surgery or procedure will start patient on Lovenox Discussed Condition With Patient and at bedside encourage up and ambulation Kim Tristan MD Sep 21, 2016 09:36
--- NOTE | 2016-09-21 10:24 | EKG ---
Date Performed: 09/20/2016 Time Performed: 12:58:54 PTAGE: 80 years EKG: Sinus rhythm NORMAL ECG PREVIOUS TRACING : 08/09/[address] 03.[address] depression has resolved from the prior tracing. DOCTOR: Wallace Mason Interpretating Date/Time 09/21/2016 10:23:47
[2016-09-21 11:01] LABS: HEMATOCRIT 26.9 % (35.0-46.0); MEAN CELL VOLUME 70.1 FL (80.0-100.0); MEAN CORPUSCULAR HEMOGLOBIN 21.4 PG (27.0-34.0); MEAN CORPUSCULAR HGB CONC 30.5 % (32.0-36.0); PLATELET COUNT 124 TH/MM3 (150-450); RED BLOOD COUNT 3.84 MIL/MM3 (4.00-5.30); RED CELL DISTRIBUTION WIDTH 20.3 % (11.6-17.2); REVIEW FLAG FINAL; WHITE BLOOD COUNT 9.6 TH/MM3 (4.0-11.0)
[2016-09-21 12:00] VITALS: BP 151/70; PULSE 83; RESP 17; TEMP 96.3; O2SAT 100
[2016-09-21 12:07] LABS: BICARBONATE 24.6 MEQ/L (21.0-32.0)
[2016-09-21] MEDS ORDERED: POTASSIUM CHLORIDE 10 MEQ CONTROLLED RELEASE TAB PO ONE (13:15)
[2016-09-21] MEDS ORDERED: POTASSIUM CHLOR 10 MEQ PREMIX 100 ML IV ONE (14:00)
--- NOTE | 2016-09-21 14:10 | MB ---
cc: KIRBY KEARNEY M.D. DATE OF CONSULTATION: 09/21/2016 CHIEF COMPLAINT Diverticulitis. HISTORY OF PRESENT ILLNESS The patient is an 80-year-old female with a history of hypertension and diabetes, who has been having abdominal pain on and off for about 4-6 weeks. She was evaluated by her primary care doctor and prescribed antibiotics and feels that really did not make things any better, so she came to the hospital. CT scan on admission showed some inflammation around the sigmoid colon as well as diverticuli, consistent with diverticulitis, as well as a necrotic cystic lesion in the liver consistent with abscess or possibly metastases. Her normal bowel pattern is daily. She has had some very minor constipation recently. She denies any melena or hematochezia. She denies any nausea or vomiting. She has lost about 8 pounds. She has had no fevers or chills. She states this illness began gradually and gradually worsened to this current level. There was no acute episode. FAMILY HISTORY Negative for colorectal cancer or polyps. She has not yet had a colonoscopy. PAST MEDICAL HISTORY 1. Hypertension. 2. Borderline diabetes. PAST SURGICAL HISTORY 1. Cholecystectomy. 2. Appendectomy. 3. Abdominal hysterectomy with bilateral salpingo-oophorectomy. ALLERGIES 1. LIPITOR. 2. LOVASTATIN. MEDICATIONS 1. Omeprazole. 2. Losartan. 3. Multivitamins. SOCIAL HISTORY The patient denies any tobacco and has very rare alcohol. REVIEW OF SYSTEMS A review of systems is negative for chest pain, shortness of breath, cough or cold symptoms, difficulty with mood or mentation, difficulty with ambulation or joint pain. PHYSICAL EXAMINATION GENERAL: An alert female who appears comfortable. NEUROLOGIC: Grossly intact. SKIN: Warm and dry. CARDIOVASCULAR: Regular rate. CHEST: Breathing is symmetric bilaterally and nonlabored. ABDOMEN: Soft, nondistended. She is very mildly tender in the left lower quadrant and the suprapubic area. There is no guarding or rebound. EXTREMITIES: No edema. LABORATORY DATA Laboratory work reveals a white count 14.5 on admission, 9.6 today. Hemoglobin is 8.2. Sodium 143, potassium 3.0, chloride 108, bicarb 24.6, BUN 8, creatinine 0.7, glucose 132. Interestingly, her tumor markers are up with an alpha-fetoprotein of 11.4, CEA of 147.1, CA-125 up 49.3. Coags are normal. Urinalysis is pending. IMPRESSION AND RECOMMENDATIONS Diverticulitis, although this could certainly also be a colon cancer with possible either liver metastasis versus a liver abscess. I have discussed this case with Dr. Emanuel and he does feel that this is amenable to drainage so we will see if he can drain it and get either some pus and/or some cells out of it to have a better idea of the etiology. Once the inflammatory area calms down colonoscopy is obviously imperative to rule out any kind of malignancy. In the meantime I think bowel rest with IV antibiotics as scheduled is appropriate. I will continue to follow her with you. Thank you very much for your kind referral. MD TAVIA Ramos/HILLARY /1:42 PM /2:00 PM [facility]
[2016-09-21] MEDS ORDERED: LIDOCAINE 1%/EPINEPHrine 1:100,000 SOLN 20 ML VIAL ONE (15:04)
[2016-09-21] MEDS ORDERED: fentaNYL CITRATE 250 MCG/5 ML AMP ONE (15:58)
[2016-09-21] MEDS ORDERED: LORazepam 2 MG/ML VIAL ONE (15:59)
[2016-09-21] MEDS ORDERED: ONDANSETRON HCL 4 MG/2 ML VIAL ONE (16:11)
--- NOTE | 2016-09-21 16:26 | PD.RAD ---
Post Procedure Progress Note Pre Procedure Diagnosis: (1) Liver mass, left lobe Post Procedure Diagnosis: (1) Liver mass, left lobe Procedure Date: Sep 21, 2016 Supervising Radiologist: Tone Nieves Anesthesia: Local, Analgesia Plan of Activity Patient to Unit: [facility] Patient Condition: Fair Additional Comments: CT guided liver aspiration preformed. Small amount of serous fluid obtained. 21 ga core sample and fluid sent for C&S. 21 ga core sent for pathology. Not possible to place a drain. NO defined cavity to place an abscess drain See PACS Report for procedural detail/treatment Tone Nieves MD Sep 21, 2016 16:26
--- NOTE | 2016-09-21 17:10 | RADRPT ---
EXAM DATE/TIME: 09/21/2016 16:02 [facility] COMPARISON: CT ABDOMEN & PELVIS W CONTRAST, September 20, 2016, 15:39. INDICATIONS : Liver abscess. MEDICATION(S): 1.) 1 mg lorazepam (Ativan) IV 2.) 150 mcg fentanyl (Sublimaze) IV 3.) 4 mg ondansetron (Zofran) IV DEVICE(S): 1.) 18 gauge Santiago blunt needle 10cm 2.) 20 gauge Temno core biopsy needle 15cm FLUID: Total volume of 1 cc of cloudy, red fluid was removed. Fluid was sent for laboratory ordered studies. MEDICAL HISTORY : Hypertension. Chronic obstructive pulmonary disease. SURGICAL HISTORY : Hysterectomy. Appendectomy. Cholecystectomy. ENCOUNTER: Initial ACUITY: 1 day PAIN SCORE: 4/10 LOCATION: Bilateral upper quadrant PROCEDURE : CT guided biopsy and aspiration of a mass/abscess within the left lobe of the liver. The risks, benefits and alternatives to the procedure were explained and verbal and written consent w as obtained. Using automated exposure control and adjustment of the mA and/or kV according to patien t size, radiation dose was kept as low as reasonably achievable to obtain optimal diagnostic quality images. The site was prepped in sterile fashion. Full sterile technique was used, including cap, ma sk, sterile gloves and gown and a large sterile sheet. Hand hygiene and 2% chlorhexidine and/or beta dine/alcohol prep was utilized per protocol for cutaneous antisepsis. The skin and subcutaneous tiss ues were infiltrated with local anesthetic solution. DICOM format image data is available electronic ally for review and comparison. A suitable site above the lesion was selected. The skin was incised with 10 cc 1% lidocaine. A Hawkin s blunt needle was advanced through the skin into the lesion without difficulty. Multiple attempts we re made to aspirate fluid from the lesion. In addition, a 0.035 wire was advanced through the needle and attempt to further break up some loculations. In spite of this, only a scant amount of serous brianne earing fluid could be aspirated. This was placed into sterile saline for culture and sensitivity. A 2 2 gauge Temno biopsy needle was advanced to the Santiago cannula. A core biopsy of the lesion was perf ormed. This was placed in saline for culture as well. A second core biopsy was performed and placed in formalin for pathology. A drainage catheter could not be placed into the lesion as there was no defined cavity for placement of the pigtail. CONCLUSION: Uncomplicated CT-guided aspiration and biopsy of the patient's mass in the left lobe of the liver. Tone Nieves MD on September 21, 2016 at 17:06 Board Certified Radiologist. This report was verified electronically.
[2016-09-21] MEDS: POTASSIUM CHLORIDE INJ 10 MEQ in DEXT 5%-NACL 0.9% 1000 ML INJ 1,000 ML IV SCH ×2 (18:17→21:26)
[2016-09-21] MEDS: PANTOPRAZOLE SODIUM 40 MG VIAL IV PUSH SCH (18:20)
[2016-09-21 20:00] VITALS: BP 135/61; PULSE 75; RESP 17; TEMP 96.4; O2SAT 94
[2016-09-22] VITALS: BP 95/123; PULSE 72; RESP 17; TEMP 96; O2SAT 95
[2016-09-22] MEDS: PIPERACIL-TAZO 3.375 GM PREMIX 50 ML IV SCH ×4 (03:35→21:14)
[2016-09-22 08:00] VITALS: BP 123/60; PULSE 73; RESP 16; TEMP 98; O2SAT 95
[2016-09-22] MEDS: POTASSIUM CHLORIDE INJ 10 MEQ in DEXT 5%-NACL 0.9% 1000 ML INJ 1,000 ML IV SCH (10:39)
--- NOTE | 2016-09-22 10:50 | HHI.PR ---
Subjective Remarks tolerating clears+ gflatus no abodminal pain, nausea or vomiting Objective Vitals Vital Signs Date Time Temp Pulse Resp B/P Pulse Ox O2 Delivery O2 Flow Rate FiO2 09/22/16 08:00 98.0 73 16 123/60 95 09/22/16 00:00 96.0 72 17 95/123 95 09/21/16 20:00 96.4 75 17 135/61 94 09/21/16 12:00 96.3 83 17 151/70 100 I/O 09/21/16 09/21/16 09/21/16 09/22/16 09/22/16 09/22/16 06:59 14:59 22:59 06:59 14:59 22:59 Intake Total 385 ml 240 ml 752 ml 629 ml Balance 385 ml 240 ml 752 ml 629 ml Intake Oral 0 ml 240 ml 240 ml 240 ml IV Total 385 ml 512 ml 389 ml # Voids 1 4 1 3 # Bowel Movements 2 Result Diagram: 09/21/16 1022 09/21/16 1022 Imaging Last Impressions Needle Aspiration CT 09/21/16 0000 Signed Impressions: Service Date/Time: Wednesday, September 21, 2016 16:02 - CONCLUSION: Uncomplicated CT-guided aspiration and biopsy of the patient's mass in the left lobe of the liver. Tone Nieves MD Abdomen/Pelvis CT 09/20/16 1237 Signed Impressions: Service Date/Time: Tuesday, September 20, 2016 15:39 - CONCLUSION: 1. Left hepatic lobe low attenuating mass may represent necrotic malignancy or abscess. 2. Findings there is suspicious for acute diverticulitis of sigmoid colon and the left hepatic lobe lesion could potentially be infection seated from the colon. Underlying colonic malignancy however is difficult to exclude. 3. There is hydronephrosis in the left kidney and hydroureter related to distal ureteral obstruction from above mentioned inflammatory process. Eladio Emanuel MD Chest X-Ray 09/20/16 0000 Signed Impressions: Service Date/Time: Tuesday, September 20, 2016 17:54 - CONCLUSION: No acute disease. Demetrius Pineda MD Objective Remarks awake and alert, NAD anicteric lungs clear regular rhythm abdomen- soft, + bowel sounds, nontender, no guarding extremities no edema Procedures CT guided needle laspiration and biopsy of liver mass A/P Assessment and Plan 80-year-old female presenting with anorexia or weight loss or abdominal pain on and off constipation for the past since July treated as an outpatient for acute diverticulitis now presenting with persistence lower abdominal pain Acute diverticulitis rule out malignancy and rule out abscess. Hepatic masses rule out abscess versus malignancy S/P CT guided needle biopsy, not enough space for drain elevated tumor markers on IV Zosyn will continue at 3.375 mg every 6 colorectal surgery- Dr. Deleon ff continue IV fluids with potassium When necessary IV pain meds Left hydronephrosis on CT secondary to mass effect. Microscopic hematuria- asymptomatic History of hypertension continue on Cozaar 25 mg daily Microcytic anemia will check baseline iron studies. PPI for GI prophylaxis SCDs teds for DVT prophylaxis if no plans for surgery or procedure will start patient on Lovenox HYpokalemia- replace. KCL in IVF. recheck now DC planning- Kim Tristan MD Sep 22, 2016 10:50 Kim Tristan MD Sep 22, 2016 10:50
--- NOTE | 2016-09-22 11:55 | PD.CONS ---
HPI History of Present Illness This is a 80 year old female who presented to the ER for evaluation of abdominal pain. She reports that she has been having intermittent lower abdominal cramping for the past 2 months. She denies any nausea or vomiting, fever or chills, decreased appetite, or weight loss. She does note that she normally moves her bowels regularly without difficulty. For the past several weeks, she has been having constipation and only having small bowel movements. She felt that her abdominal pain was related to this and therefore last Tuesday she took prunes, prune juice, stool softeners, and a suppository to try to move her bowels. Afterwards, she reports that she had diarrhea with liquid brown stool for 3 days. However, her pain did not really improve. She came to the ER for further evaluation. Abdomen/Pelvis CT (09/20/16)-----> 1. Left hepatic lobe low attenuating mass may represent necrotic malignancy or abscess. 2. Findings there is suspicious for acute diverticulitis of sigmoid colon and the left hepatic lobe lesion could potentially be infection seated from the colon. Underlying colonic malignancy however is difficult to exclude. 3. There is hydronephrosis in the left kidney and hydroureter related to distal ureteral obstruction from above mentioned inflammatory process. She has been evaluated by Colorectal Surgery and underwent a CT guided aspiration and biopsy of the patient's mass in the left lobe of the liver. Per the Invasive Radiology note, a small amount of serous fluid was obtained and sent for C&S, pathology. He was unable to place a drain, as there was no defined cavity to place an abscess drain. AFP was elevated at 11.4, CEA elevated at 147.1, Ca125 elevated 49.3. GI was consulted for further evaluation. The patient denies ever having a colonoscopy in the past. She denies any known family hx of esophageal, gastric, or colorectal cancer. She has a history of total hysterectomy with bilateral oophorectomy for abnormal uterine bleeding. She reports that she has never been diagnosed with diverticulitis in the past, but she feels as though she has had this at times and did not seek medical treatment. PFSH Past Medical History GERD Hypertension Borderline DM ? Diverticulitis Past Surgical History Cholecystectomy Appendectomy Total abdominal hysterectomy and bilateral salpingo-oophorectomy Coded Allergies: Lipitor (Verified Allergy, Severe, MUSCLE PAIN, 09/20/16) Lovastatin (Verified Allergy, Severe, MUSCLE SPASM/PAIN, 09/20/16) Medications Allergies Coded Allergies Type Severity Reaction Last Updated Verified Lipitor Allergy Severe MUSCLE PAIN 09/20/16 Yes Lovastatin Allergy Severe MUSCLE SPASM/PAIN 09/20/16 Yes Active Scripts Medications Dose Route/Sig Days Date Category Omeprazole 20 Mg Tab 20 Mg PO DAILY 09/20/16 Reported Losartan (Losartan Potassium) 25 Mg Tab 25 Mg PO DAILY 09/20/16 Reported Family History Denies any family history of colon cancer or any form of malignancies. Social History Quit smoking 30 years ago Very occasional wine Review of Systems Constitutional: COMPLAINS OF: Fatigue, DENIES: Fever, Weight loss, Chills, Change in appetite Respiratory: DENIES: Cough Cardiovascular: DENIES: Chest pain Gastrointestinal: COMPLAINS OF: Abdominal pain, Constipation, DENIES: Black stools, Bloody stools, Diarrhea, Nausea, Vomiting, Heartburn, Hematemesis Musculoskeletal: COMPLAINS OF: Joint pain Integumentary: DENIES: Rash Hematologic/lymphatic: DENIES: Bruising Neurologic: DENIES: Headache Psychiatric: DENIES: Confusion GI Exam Vitals I&O Vital Signs Date Time Temp Pulse Resp B/P Pulse Ox O2 Delivery O2 Flow Rate FiO2 09/22/16 08:00 98.0 73 16 123/60 95 09/22/16 00:00 96.0 72 17 95/123 95 09/21/16 20:00 96.4 75 17 135/61 94 09/21/16 12:00 96.3 83 17 151/70 100 I/O 09/21/16 09/21/16 09/21/16 09/22/16 09/22/16 09/22/16 07:00 15:00 23:00 07:00 15:00 23:00 Intake Total 385 ml 240 ml 752 ml 629 ml Balance 385 ml 240 ml 752 ml 629 ml Intake Oral 0 ml 240 ml 240 ml 240 ml IV Total 385 ml 512 ml 389 ml # Voids 1 4 1 3 # Bowel Movements 2 Imaging Last Impressions Needle Aspiration CT 09/21/16 0000 Signed Impressions: Service Date/Time: Wednesday, September 21, 2016 16:02 - CONCLUSION: Uncomplicated CT-guided aspiration and biopsy of the patient's mass in the left lobe of the liver. Tone Nieves MD Abdomen/Pelvis CT 09/20/16 1237 Signed Impressions: Service Date/Time: Tuesday, September 20, 2016 15:39 - CONCLUSION: 1. Left hepatic lobe low attenuating mass may represent necrotic malignancy or abscess. 2. Findings there is suspicious for acute diverticulitis of sigmoid colon and the left hepatic lobe lesion could potentially be infection seated from the colon. Underlying colonic malignancy however is difficult to exclude. 3. There is hydronephrosis in the left kidney and hydroureter related to distal ureteral obstruction from above mentioned inflammatory process. Eladio Emanuel MD Chest X-Ray 09/20/16 0000 Signed Impressions: Service Date/Time: Tuesday, September 20, 2016 17:54 - CONCLUSION: No acute disease. Demetrius Pineda MD Laboratory Date/Time Procedure Status Source Growth 09/21/16 14:15 Gram Stain Received Abscess Other Pending 09/21/16 14:15 Wound Culture Received Abscess Other Pending 09/21/16 14:15 Fungal Smear Received Abscess Other Pending 09/21/16 14:15 Fungal Culture Received Abscess Other Pending 09/21/16 14:15 Acid Fast Stain Received Abscess Other Pending 09/21/16 14:15 Mycobacterial Culture Received Abscess Other Pending 09/20/16 16:55 Aerobic Blood Culture - Preliminary Resulted Blood Peripheral NO GROWTH IN 2 DAYS 09/20/16 16:55 Anaerobic Blood Culture - Preliminary Resulted Blood Peripheral NO GROWTH IN 2 DAYS 09/20/16 12:40 Urine Culture - Final Complete Urine Clean Catch 50-100,000 CFU/ML MIXED ZULEIKA... Physical Examination HEENT: Normocephalic; atraumatic; no jaundice. CHEST: CTA CARDIAC: RRR mild lower abdominal tenderness, more LLQ, ; no hepatosplenomegaly ; bowel sounds are present in all four quadrants. EXTREMITIES: No clubbing, cyanosis, or edema. SKIN: Normal; no rash; no jaundice. ALLERGIST/IMMUNOLOGIST: No focal deficits; alert and oriented times three. Assessment and Plan Plan ASSESSMENT: - Abdominal pain. Intermittent lower abdominal cramping for several months. Abdomen/Pelvis CT (09/20/16)-----> 1. Left hepatic lobe low attenuating mass may represent necrotic malignancy or abscess. 2. Findings there is suspicious for acute diverticulitis of sigmoid colon and the left hepatic lobe lesion could potentially be infection seated from the colon. Underlying colonic malignancy however is difficult to exclude. 3. There is hydronephrosis in the left kidney and hydroureter related to distal ureteral obstruction from above mentioned inflammatory process. AFP 11.4, CEA 147.1, Ca125 49.3. S/P aspiration/bx of liver mass/fluid. Cx and pathology pending. On Zosyn for possible diverticulitis. Improved. - Abnormal imaging involving the sigmoid colon, diverticulitis vs. malignancy. CT as above. AFP 11.4, CEA 147.1, Ca125 49.3. Zosyn. CRS following. Will need colonoscopy, but will defer timing to CRS as they are on case. No family hx of cancer. - Liver mass vs. abscess. AFP 11.4, CEA 147.1, Ca125 49.3.S/P CT guided aspiration and biopsy of the patient's mass in the left lobe of the liver. Per the Invasive Radiology note, a small amount of serous fluid was obtained and sent for C&S , pathology. He was unable to place a drain, as there was no defined cavity to place an abscess drain. No family hx of cancer. - Changes in bowel habits with new onset constipation. Usually regular bowel movements. Sudden onset of constipation with small stools. Tuesday she took prunes, prune juice, colace, and suppository and then had diarrhea x 3 days. No melena or hematochezia. - Anemia. 8.2/26.9. - Hypokalemia. K+ 3.0. - HTN per primary PLAN: - Diet per CRS - Await pathology - Await Cx - Monitor HH - Transfuse as necessary - CRS following - Supportive care - Cont. Zosyn - Will likely need colonoscopy, CRS following on zosyn for possible diverticulitis, will defer to them - Further recommendations to follow based on results of above - Pt seen and examined by Dr. Johnson and myself and this note is written on his behalf. Risa Arguello Sep 22, 2016 11:55
[2016-09-22 12:00] VITALS: BP 143/66; PULSE 70; RESP 16; TEMP 96.9; O2SAT 94
[2016-09-22 13:02] LABS: BICARBONATE 24.4 MEQ/L (21.0-32.0); POTASSIUM 3.5 MEQ/L (3.5-5.1)
[2016-09-22 16:00] VITALS: BP 149/65; PULSE 79; RESP 16; TEMP 97.5; O2SAT 95
[2016-09-22] MEDS: PANTOPRAZOLE SODIUM 40 MG VIAL IV PUSH SCH (17:33)
[2016-09-22 20:00] VITALS: BP 147/64; PULSE 92; RESP 17; TEMP 99.7; O2SAT 95
[2016-09-23] VITALS: BP 127/61; PULSE 86; RESP 17; TEMP 98.4; O2SAT 96
[2016-09-23] MEDS: POTASSIUM CHLORIDE INJ 10 MEQ in DEXT 5%-NACL 0.9% 1000 ML INJ 1,000 ML IV SCH (00:30)
[2016-09-23] MEDS: PIPERACIL-TAZO 3.375 GM PREMIX 50 ML IV SCH ×4 (03:46→20:48)
--- NOTE | 2016-09-23 07:56 | HHI.PR ---
Subjective Remarks tolerating po, no nausea or vomiting persistent "gnawing pain" lower abdomen- Objective Vitals Vital Signs Date Time Temp Pulse Resp B/P Pulse Ox O2 Delivery O2 Flow Rate FiO2 09/23/16 00:00 98.4 86 17 127/61 96 09/22/16 20:00 99.7 92 17 147/64 95 09/22/16 16:00 97.5 79 16 149/65 95 09/22/16 12:00 96.9 70 16 143/66 94 09/22/16 08:00 98.0 73 16 123/60 95 I/O 09/22/16 09/22/16 09/22/16 09/23/16 09/23/16 09/23/16 07:00 15:00 23:00 07:00 15:00 23:00 Intake Total 629 ml 885 ml 854 ml 877 ml Balance 629 ml 885 ml 854 ml 877 ml Intake Oral 240 ml 240 ml 240 ml 240 ml IV Total 389 ml 645 ml 614 ml 637 ml # Voids 3 3 2 2 # Bowel Movements 1 Result Diagram: 09/21/16 1022 09/22/16 1222 Imaging Last Impressions Needle Aspiration CT 09/21/16 0000 Signed Impressions: Service Date/Time: Wednesday, September 21, 2016 16:02 - CONCLUSION: Uncomplicated CT-guided aspiration and biopsy of the patient's mass in the left lobe of the liver. Tone Nieves MD Abdomen/Pelvis CT 09/20/16 1237 Signed Impressions: Service Date/Time: Tuesday, September 20, 2016 15:39 - CONCLUSION: 1. Left hepatic lobe low attenuating mass may represent necrotic malignancy or abscess. 2. Findings there is suspicious for acute diverticulitis of sigmoid colon and the left hepatic lobe lesion could potentially be infection seated from the colon. Underlying colonic malignancy however is difficult to exclude. 3. There is hydronephrosis in the left kidney and hydroureter related to distal ureteral obstruction from above mentioned inflammatory process. Eladio Emanuel MD Chest X-Ray 09/20/16 0000 Signed Impressions: Service Date/Time: Tuesday, September 20, 2016 17:54 - CONCLUSION: No acute disease. Demetrius Pineda MD Objective Remarks awake and alert, NAD anicteric lungs clear regular rhythm abdomen- soft, + bowel sounds, slight tenderness on left lower quadrant area and right upper quadrant - biopsy site extremities no edema Procedures 09/21- CT guided needle aspiration and biopsy of liver mass A/P Assessment and Plan 80-year-old female presenting with anorexia or weight loss or abdominal pain on and off constipation for the past since July treated as an outpatient for acute diverticulitis now presenting with persistence lower abdominal pain Acute diverticulitis rule out malignancy and rule out abscess. Hepatic masses rule out abscess versus malignancy S/P CT guided needle biopsy, not enough space for drain elevated tumor markers on IV Zosyn will continue at 3.375 mg every 6 colorectal surgery- Dr. Deleon ff. GI ff continue IV fluids with potassium When necessary IV pain meds CBC, BMP now pathology -pending. negative fluid cultures Left hydronephrosis on CT secondary to mass effect. Microscopic hematuria- asymptomatic History of hypertension continue on Cozaar 25 mg daily Iron deficiency anemia - give IV Iron x 1 HYpokalemia- - improved KCL in IVF PPI for GI prophylaxis Pt up and ambulating Kim Tristan MD Sep 23, 2016 07:56
[2016-09-23 08:00] VITALS: BP 129/59; PULSE 83; RESP 18; TEMP 96.6; O2SAT 93
[2016-09-23] MEDS ORDERED: IRON SUCROSE INJ 200 MG in SODIUM CHLORIDE 0.9% INJ 100 ML IV ONE (08:00)
--- NOTE | 2016-09-23 10:37 | HHI.PR ---
Subjective Remarks Abdominal mic - diverticulitis vs cancer More comfortable, only passing scant stool Objective Vital Signs Date Time Temp Pulse Resp B/P Pulse Ox O2 Delivery O2 Flow Rate FiO2 09/23/16 08:00 96.6 83 18 129/59 93 09/23/16 00:00 98.4 86 17 127/61 96 09/22/16 20:00 99.7 92 17 147/64 95 09/22/16 16:00 97.5 79 16 149/65 95 09/22/16 12:00 96.9 70 16 143/66 94 I/O 09/22/16 09/22/16 09/22/16 09/23/16 09/23/16 09/23/16 07:00 15:00 23:00 07:00 15:00 23:00 Intake Total 629 ml 885 ml 854 ml 877 ml Balance 629 ml 885 ml 854 ml 877 ml Intake Oral 240 ml 240 ml 240 ml 240 ml IV Total 389 ml 645 ml 614 ml 637 ml # Voids 3 3 2 2 # Bowel Movements 1 Result Diagram: 09/21/16 1022 09/22/16 1222 Objective Remarks Minimal tenderness Assessment and Plan Assessment and Plan Tolerating diet Add MiraLax Await liver biopsies - concerning for malignancy Fabiola Deleon MD Sep 23, 2016 10:37
[2016-09-23 12:00] VITALS: BP 137/65; PULSE 84; RESP 19; TEMP 100.6; O2SAT 95
[2016-09-23] MEDS: POLYETHYLENE GLYCOL 17 GM PKG PO SCH (12:30)
[2016-09-23 14:14] LABS: HEMATOCRIT 24.4 % (35.0-46.0); MEAN CELL VOLUME 70.6 FL (80.0-100.0); MEAN CORPUSCULAR HEMOGLOBIN 21.2 PG (27.0-34.0); PLATELET COUNT 92 TH/MM3 (150-450); RED BLOOD COUNT 3.45 MIL/MM3 (4.00-5.30); WHITE BLOOD COUNT 12.6 TH/MM3 (4.0-11.0)
[2016-09-23 14:19] LABS: REVIEW FLAG FINAL
[2016-09-23 14:41] LABS: ANION GAP 10 MEQ/L (5-15)
[2016-09-23 14:45] LABS: ALKALINE PHOSPHATASE 229 U/L (45-117); ALT (GPT) 22 U/L (10-53); AST (GOT) 59 U/L (15-37); BICARBONATE 22.9 MEQ/L (21.0-32.0); BLOOD UREA NITROGEN 6 MG/DL (7-18); CHLORIDE 109 MEQ/L (98-107); GLOMERULAR FILTRATION RATE 67 ML/MIN (>89); SODIUM (NA) 142 MEQ/L (136-145); TOTAL BILIRUBIN ADULT 0.6 MG/DL (0.2-1.0)
[2016-09-23 14:48] LABS: POTASSIUM 3.3 MEQ/L (3.5-5.1)
[2016-09-23 16:00] VITALS: BP 154/66; PULSE 80; RESP 17; TEMP 97.9; O2SAT 92
--- NOTE | 2016-09-23 16:39 | HHI.GIFU ---
Subjective Remarks Pt resting in bed, family at bedside. Says she hasn't eaten in 9 days b/c she is nauseous and doesn't feel like eating. Soreness at liver bx site. Objective Vitals I&O Vital Signs Date Time Temp Pulse Resp B/P Pulse Ox O2 Delivery O2 Flow Rate FiO2 09/23/16 16:00 97.9 80 17 154/66 92 09/23/16 12:00 100.6 84 19 137/65 95 09/23/16 08:00 96.6 83 18 129/59 93 09/23/16 00:00 98.4 86 17 127/61 96 09/22/16 20:00 99.7 92 17 147/64 95 I/O 09/22/16 09/22/16 09/22/16 09/23/16 09/23/16 09/23/16 07:00 15:00 23:00 07:00 15:00 23:00 Intake Total 629 ml 885 ml 854 ml 877 ml 888 ml Balance 629 ml 885 ml 854 ml 877 ml 888 ml Intake Oral 240 ml 240 ml 240 ml 240 ml 400 ml IV Total 389 ml 645 ml 614 ml 637 ml 488 ml # Voids 3 3 2 2 4 # Bowel Movements 1 1 Laboratory Laboratory Tests Test 09/23/16 09/23/16 09:50 13:36 White Blood Count 12.6 Red Blood Count 3.45 Hemoglobin 7.3 Hematocrit 24.4 Mean Corpuscular Volume 70.6 Mean Corpuscular Hemoglobin 21.2 Mean Corpuscular Hemoglobin 30.0 Concent Red Cell Distribution Width 21.0 Platelet Count 92 Mean Platelet Volume 10.8 Sodium Level 142 Potassium Level 3.3 Chloride Level 109 Carbon Dioxide Level 22.9 Anion Gap 10 Blood Urea Nitrogen 6 Creatinine 0.82 Estimat Glomerular Filtration 67 Rate Random Glucose 141 Calcium Level 7.9 Total Bilirubin 0.6 Aspartate Amino Transf 59 (AST/SGOT) Alanine Aminotransferase 22 (ALT/SGPT) Alkaline Phosphatase 229 Total Protein 6.2 Albumin 2.4 Date/Time Procedure Status Source Growth 09/21/16 14:15 Gram Stain - Final Resulted Abscess Other 09/21/16 14:15 Wound Culture - Preliminary Resulted Abscess Other NO GROWTH IN 48 HOURS. 09/21/16 14:15 Fungal Smear - Final Resulted Abscess Other NO FUNGAL ELEMENTS SEEN. 09/21/16 14:15 Fungal Culture Resulted Abscess Other Pending 09/21/16 14:15 Acid Fast Stain - Final Resulted Abscess Other NO ACID FAST BACILLI SEEN 09/21/16 14:15 Mycobacterial Culture Resulted Abscess Other Pending 09/20/16 16:55 Aerobic Blood Culture - Preliminary Resulted Blood Peripheral NO GROWTH IN 3 DAYS 09/20/16 16:55 Anaerobic Blood Culture - Preliminary Resulted Blood Peripheral NO GROWTH IN 3 DAYS 09/20/16 12:40 Urine Culture - Final Complete Urine Clean Catch 50-100,000 CFU/ML MIXED ZULEIKA... Imaging Last Impressions Needle Aspiration CT 09/21/16 0000 Signed Impressions: Service Date/Time: Wednesday, September 21, 2016 16:02 - CONCLUSION: Uncomplicated CT-guided aspiration and biopsy of the patient's mass in the left lobe of the liver. Tone Nieves MD Abdomen/Pelvis CT 09/20/16 1237 Signed Impressions: Service Date/Time: Tuesday, September 20, 2016 15:39 - CONCLUSION: 1. Left hepatic lobe low attenuating mass may represent necrotic malignancy or abscess. 2. Findings there is suspicious for acute diverticulitis of sigmoid colon and the left hepatic lobe lesion could potentially be infection seated from the colon. Underlying colonic malignancy however is difficult to exclude. 3. There is hydronephrosis in the left kidney and hydroureter related to distal ureteral obstruction from above mentioned inflammatory process. Eladio Emanuel MD Chest X-Ray 09/20/16 0000 Signed Impressions: Service Date/Time: Tuesday, September 20, 2016 17:54 - CONCLUSION: No acute disease. Demetrius Pineda MD Physical Exam HEENT: PERRL; normocephalic; atraumatic; no jaundice. CHEST: CTA CARDIAC: RRR ABDOMEN: Soft, nondistended, mild TTP upper abd; bowel sounds are present in all four quadrants. EXTREMITIES: No clubbing, cyanosis, or edema. SKIN: Normal; no rash; no jaundice. INTERIM CONTROLLER: No focal deficits; alert and oriented times three. Assessment and Plan Plan ASSESSMENT: - Abdominal pain. Intermittent lower abdominal cramping for several months. Abdomen/Pelvis CT (09/20/16)-----> 1. Left hepatic lobe low attenuating mass may represent necrotic malignancy or abscess. 2. Findings there is suspicious for acute diverticulitis of sigmoid colon and the left hepatic lobe lesion could potentially be infection seated from the colon. Underlying colonic malignancy however is difficult to exclude. 3. There is hydronephrosis in the left kidney and hydroureter related to distal ureteral obstruction from above mentioned inflammatory process. AFP 11.4, CEA 147.1, Ca125 49.3. S/P aspiration/bx of liver mass/fluid. Cx and pathology pending. On Zosyn for possible diverticulitis. Improved. - Abnormal imaging involving the sigmoid colon, diverticulitis vs. malignancy. CT as above. AFP 11.4, CEA 147.1, Ca125 49.3. Zosyn. CRS following. Will need colonoscopy, but will defer timing to CRS as they are on case. No family hx of cancer. - Liver mass vs. abscess. AFP 11.4, CEA 147.1, Ca125 49.3.S/P CT guided aspiration and biopsy of the patient's mass in the left lobe of the liver. Per the Invasive Radiology note, a small amount of serous fluid was obtained and sent for C&S , pathology. He was unable to place a drain, as there was no defined cavity to place an abscess drain. no No family hx of cancer. abscess cx neg, path revealed no tissue - Changes in bowel habits with new onset constipation. Usually regular bowel movements. Sudden onset of constipation with small stools. Tuesday she took prunes, prune juice, colace, and suppository and then had diarrhea x 3 days. No melena or hematochezia. - Anemia. hgb 7.3 - Hypokalemia. K+ 3.3. - HTN per primary PLAN: - Diet per CRS - Monitor HH - Transfuse as necessary - CRS following - Supportive care - Cont. Zosyn - Pt seen and examined by Dr. Johnson and myself and this note is written on his behalf. Amalia Tran Sep 23, 2016 16:39
[2016-09-23] MEDS: PANTOPRAZOLE SODIUM 40 MG VIAL IV PUSH SCH (17:13)
[2016-09-23 20:16] VITALS: BP 122/59; PULSE 92; RESP 16; TEMP 99.9; O2SAT 96
[2016-09-24] VITALS (9 sets, daily range): BP systolic 119–144; BP diastolic 56–64; PULSE 89–103; RESP 16–20; TEMP 98–100.5; O2SAT 93–99
[2016-09-24] MEDS: POTASSIUM CHLORIDE INJ 10 MEQ in DEXT 5%-NACL 0.9% 1000 ML INJ 1,000 ML IV SCH (01:29)
[2016-09-24] MEDS: PIPERACIL-TAZO 3.375 GM PREMIX 50 ML IV SCH ×4 (04:00→21:08)
[2016-09-24] MEDS: POLYETHYLENE GLYCOL 17 GM PKG PO SCH (08:29)
--- NOTE | 2016-09-24 08:47 | HHI.PR ---
Subjective Remarks Abdominal pain - diverticulitis vs cancer comfortable, no nausea Objective Vital Signs Date Time Temp Pulse Resp B/P Pulse Ox O2 Delivery O2 Flow Rate FiO2 09/24/16 08:00 98.0 90 20 130/56 96 09/24/16 00:24 98.6 90 18 120/57 94 09/23/16 20:16 99.9 92 16 122/59 96 09/23/16 16:00 97.9 80 17 154/66 92 09/23/16 12:00 100.6 84 19 137/65 95 I/O 09/23/16 09/23/16 09/23/16 09/24/16 09/24/16 09/24/16 07:00 15:00 23:00 07:00 15:00 23:00 Intake Total 877 ml 888 ml 700 ml 778 ml Output Total 600 ml Balance 877 ml 888 ml 100 ml 778 ml Intake Oral 240 ml 400 ml 360 ml 360 ml IV Total 637 ml 488 ml 340 ml 418 ml Output Urine Total 600 ml # Voids 2 4 2 # Bowel Movements 1 Result Diagram: 09/23/16 0950 09/23/16 1336 Objective Remarks nontender Assessment and Plan Assessment and Plan Tolerating diet Add MiraLax Liver biopsies without adequate tissue Ok to d/c from point of view of pain/diverticulitis ? whether repeat CT guided biopsy possible? Awaiting call back from Radiologist I will see her in the office in 2-3 weeks. Fabiola Deleon MD Sep 24, 2016 08:47
--- NOTE | 2016-09-24 09:40 | HHI.PR ---
Subjective Remarks minimal pain only on the site of biopsy "slight" no nauea or vomiting + loose stools- brown, no blood, no melena states if DC- home with liquid meds- per patient ever since childhool- difficulty with pills Objective Vitals Vital Signs Date Time Temp Pulse Resp B/P Pulse Ox O2 Delivery O2 Flow Rate FiO2 09/24/16 08:00 98.0 90 20 130/56 96 09/24/16 00:24 98.6 90 18 120/57 94 09/23/16 20:16 99.9 92 16 122/59 96 09/23/16 16:00 97.9 80 17 154/66 92 09/23/16 12:00 100.6 84 19 137/65 95 I/O 09/23/16 09/23/16 09/23/16 09/24/16 09/24/16 09/24/16 07:00 15:00 23:00 07:00 15:00 23:00 Intake Total 877 ml 888 ml 700 ml 778 ml Output Total 600 ml Balance 877 ml 888 ml 100 ml 778 ml Intake Oral 240 ml 400 ml 360 ml 360 ml IV Total 637 ml 488 ml 340 ml 418 ml Output Urine Total 600 ml # Voids 2 4 2 # Bowel Movements 1 Result Diagram: 09/23/16 0950 09/23/16 1336 Imaging Last Impressions Needle Aspiration CT 09/21/16 0000 Signed Impressions: Service Date/Time: Wednesday, September 21, 2016 16:02 - CONCLUSION: Uncomplicated CT-guided aspiration and biopsy of the patient's mass in the left lobe of the liver. Tone Nieves MD Abdomen/Pelvis CT 09/20/16 1237 Signed Impressions: Service Date/Time: Tuesday, September 20, 2016 15:39 - CONCLUSION: 1. Left hepatic lobe low attenuating mass may represent necrotic malignancy or abscess. 2. Findings there is suspicious for acute diverticulitis of sigmoid colon and the left hepatic lobe lesion could potentially be infection seated from the colon. Underlying colonic malignancy however is difficult to exclude. 3. There is hydronephrosis in the left kidney and hydroureter related to distal ureteral obstruction from above mentioned inflammatory process. Eladio Emanuel MD Chest X-Ray 09/20/16 0000 Signed Impressions: Service Date/Time: Tuesday, September 20, 2016 17:54 - CONCLUSION: No acute disease. Demetrius Pineda MD Objective Remarks awake and alert, NAD anicteric lungs clear regular rhythm abdomen- soft, + bowel sounds, no guarding or rigidity extremities no edema Procedures 09/21- CT guided needle aspiration and biopsy of liver mass A/P Assessment and Plan 80-year-old female presenting with anorexia or weight loss or abdominal pain on and off constipation for the past since July treated as an outpatient for acute diverticulitis now presenting with persistence lower abdominal pain Acute diverticulitis rule out malignancy and rule out abscess. Hepatic masses rule out abscess versus malignancy S/P CT guided needle biopsy, not enough space for drain elevated tumor markers on IV Zosyn will continue at 3.375 mg every 6- colorectal surgery- Dr. Deleon ff. GI ff continue IV fluids with potassium When necessary IV pain meds CBC, BMP now pathology- no liver tissue identified. negative fluid cultures, wull need further diagnostic test- biopsy- will defer to CRS Left hydronephrosis on CT secondary to mass effect. Microscopic hematuria- asymptomatic History of hypertension continue on Cozaar 25 mg daily Iron deficiency anemia - give IV Iron x 1. HYpokalemia- - improved KCL in IVF PPI for GI prophylaxis Pt up and ambulating. check labs now OP ff up with GI OP ff up with CRS in 2 weeks Kim Tristan MD Sep 24, 2016 09:40
[2016-09-24] MEDS: MULTIVITAMINS/IRON/MINERALS CHEWABLE TAB CHEW SCH (11:45)
[2016-09-24 12:06] LABS: AUTOMATED NEUTROPHIL # 8.4 TH/MM3 (1.8-7.7); BASOPHIL # 0.1 TH/MM3 (0-0.2); BASOPHIL % 0.7 % (0.0-2.0); EOSINOPHIL # 0.1 TH/MM3 (0-0.4); EOSINOPHIL % 0.4 % (0.0-4.0); HEMATOCRIT 23.5 % (35.0-46.0); LYMPH % 11.2 % (9.0-44.0); LYMPHOCYTE # 1.4 TH/MM3 (1.0-4.8); MEAN CELL VOLUME 68.9 FL (80.0-100.0); MEAN CORPUSCULAR HEMOGLOBIN 21.2 PG (27.0-34.0); MEAN CORPUSCULAR HGB CONC 30.7 % (32.0-36.0); MONO % 19.9 % (0.0-8.0); NEUT % 67.8 % (16.0-70.0); PLATELET COUNT 100 TH/MM3 (150-450); RED BLOOD COUNT 3.42 MIL/MM3 (4.00-5.30); RED CELL DISTRIBUTION WIDTH 20.7 % (11.6-17.2); WHITE BLOOD COUNT 12.4 TH/MM3 (4.0-11.0)
[2016-09-24 12:12] LABS: HEMO FLAGS AUTO DIFF
[2016-09-24 12:27] LABS: ALKALINE PHOSPHATASE 219 U/L (45-117); ALT (GPT) 23 U/L (10-53); ANION GAP 10 MEQ/L (5-15); AST (GOT) 50 U/L (15-37); BICARBONATE 25.2 MEQ/L (21.0-32.0); BLOOD UREA NITROGEN 6 MG/DL (7-18); CHLORIDE 109 MEQ/L (98-107); GLOMERULAR FILTRATION RATE 83 ML/MIN (>89); SODIUM (NA) 144 MEQ/L (136-145); TOTAL BILIRUBIN ADULT 0.7 MG/DL (0.2-1.0)
[2016-09-24 12:30] LABS: POTASSIUM 2.6 MEQ/L (3.5-5.1)
[2016-09-24 12:46] LABS: PLATELET ESTIMATE SMEAR LOW (NORMAL); PLATELET MORPHOLOGY ENLARGED (NORMAL)
[2016-09-24 12:47] LABS: SCAN/DIFF AUTO DIFF CONFIRMED
[2016-09-24] MEDS ORDERED: POTASSIUM CHLORIDE 25 MEQ EFFERVESCENT TAB PO ONE ×2 (13:00→20:30)
[2016-09-24] MEDS: POTASSIUM CHLOR 10 MEQ PREMIX 100 ML IV SCH ×3 (13:41→15:00)
[2016-09-24] MEDS ORDERED: LIDOCAINE 1%/EPINEPHrine 1:100,000 SOLN 20 ML VIAL ONE (15:30)
[2016-09-24 15:32] LABS: APTT (PATIENT) 25.2 SEC (24.3-30.1); INTERNATIONAL NORMALIZED RATIO 1.2 RATIO; PROTHROMBIN TIME - PATIENT 13.4 SEC (9.8-11.6)
--- NOTE | 2016-09-24 15:41 | HHI.GIFU ---
Subjective Remarks Pt resting in bed. Says she is hungry, going for 2nd liver bx. Objective Vitals I&O Vital Signs Date Time Temp Pulse Resp B/P Pulse Ox O2 Delivery O2 Flow Rate FiO2 09/24/16 15:28 100.1 100 16 128/61 95 09/24/16 12:00 99.3 102 19 144/64 95 09/24/16 08:00 98.0 90 20 130/56 96 09/24/16 00:24 98.6 90 18 120/57 94 09/23/16 20:16 99.9 92 16 122/59 96 09/23/16 16:00 97.9 80 17 154/66 92 I/O 09/23/16 09/23/16 09/23/16 09/24/16 09/24/16 09/24/16 06:59 14:59 22:59 06:59 14:59 22:59 Intake Total 877 ml 888 ml 700 ml 778 ml Output Total 600 ml Balance 877 ml 888 ml 100 ml 778 ml Intake Oral 240 ml 400 ml 360 ml 360 ml IV Total 637 ml 488 ml 340 ml 418 ml Output Urine Total 600 ml # Voids 2 4 2 # Bowel Movements 1 Laboratory Laboratory Tests Test 09/24/16 09/24/16 09/24/16 10:37 13:04 14:48 White Blood Count 12.4 Red Blood Count 3.42 Hemoglobin 7.2 Hematocrit 23.5 Mean Corpuscular Volume 68.9 Mean Corpuscular Hemoglobin 21.2 Mean Corpuscular Hemoglobin 30.7 Concent Red Cell Distribution Width 20.7 Platelet Count 100 Mean Platelet Volume 10.0 Neutrophils (%) (Auto) 67.8 Lymphocytes (%) (Auto) 11.2 Monocytes (%) (Auto) 19.9 Eosinophils (%) (Auto) 0.4 Basophils (%) (Auto) 0.7 Neutrophils # (Auto) 8.4 Lymphocytes # (Auto) 1.4 Monocytes # (Auto) 2.5 Eosinophils # (Auto) 0.1 Basophils # (Auto) 0.1 CBC Comment AUTO DIFF Differential Comment AUTO DIFF CONFIRMED Platelet Estimate LOW Platelet Morphology Comment ENLARGED Sodium Level 144 Potassium Level 2.6 Chloride Level 109 Carbon Dioxide Level 25.2 Anion Gap 10 Blood Urea Nitrogen 6 Creatinine 0.68 Estimat Glomerular Filtration 83 Rate Random Glucose 167 Calcium Level 8.2 Total Bilirubin 0.7 Aspartate Amino Transf 50 (AST/SGOT) Alanine Aminotransferase 23 (ALT/SGPT) Alkaline Phosphatase 219 Total Protein 6.1 Albumin 2.4 Blood Type AB NEGATIVE AB NEGATIVE Antibody Screen NEGATIVE Crossmatch Leukocyte-Reduced Red Blood Cells Blood Bank Comment Prothrombin Time 13.4 Prothromb Time International 1.2 Ratio Activated Partial 25.2 Thromboplast Time Date/Time Procedure Status Source Growth 09/21/16 14:15 Gram Stain - Final Complete Abscess Other 09/21/16 14:15 Wound Culture - Final Complete Abscess Other NO GROWTH IN 72 HRS.--AEROBICALLY OR ... 09/21/16 14:15 Fungal Smear - Final Resulted Abscess Other NO FUNGAL ELEMENTS SEEN. 09/21/16 14:15 Fungal Culture Resulted Abscess Other Pending 09/21/16 14:15 Acid Fast Stain - Final Resulted Abscess Other NO ACID FAST BACILLI SEEN 09/21/16 14:15 Mycobacterial Culture Resulted Abscess Other Pending 09/20/16 16:55 Aerobic Blood Culture - Preliminary Resulted Blood Peripheral NO GROWTH IN 4 DAYS 09/20/16 16:55 Anaerobic Blood Culture - Preliminary Resulted Blood Peripheral NO GROWTH IN 4 DAYS 09/20/16 12:40 Urine Culture - Final Complete Urine Clean Catch 50-100,000 CFU/ML MIXED ZULEIKA... Imaging Last Impressions Needle Aspiration CT 09/21/16 0000 Signed Impressions: Service Date/Time: Wednesday, September 21, 2016 16:02 - CONCLUSION: Uncomplicated CT-guided aspiration and biopsy of the patient's mass in the left lobe of the liver. Tone Nieves MD Abdomen/Pelvis CT 09/20/16 1237 Signed Impressions: Service Date/Time: Tuesday, September 20, 2016 15:39 - CONCLUSION: 1. Left hepatic lobe low attenuating mass may represent necrotic malignancy or abscess. 2. Findings there is suspicious for acute diverticulitis of sigmoid colon and the left hepatic lobe lesion could potentially be infection seated from the colon. Underlying colonic malignancy however is difficult to exclude. 3. There is hydronephrosis in the left kidney and hydroureter related to distal ureteral obstruction from above mentioned inflammatory process. Eladio Emanuel MD Chest X-Ray 09/20/16 0000 Signed Impressions: Service Date/Time: Tuesday, September 20, 2016 17:54 - CONCLUSION: No acute disease. Demetrius Pineda MD Physical Exam HEENT: PERRL; normocephalic; atraumatic; no jaundice. CHEST: CTA CARDIAC: RRR ABDOMEN: Soft, nondistended, mild TTP upper abd; bowel sounds are present in all four quadrants. EXTREMITIES: No clubbing, cyanosis, or edema. SKIN: Normal; no rash; no jaundice. HOSPICE HOME HEALTH AIDE: No focal deficits; alert and oriented times three. Assessment and Plan Plan ASSESSMENT: - Abdominal pain. Intermittent lower abdominal cramping for several months. Abdomen/Pelvis CT (09/20/16)-----> 1. Left hepatic lobe low attenuating mass may represent necrotic malignancy or abscess. 2. Findings there is suspicious for acute diverticulitis of sigmoid colon and the left hepatic lobe lesion could potentially be infection seated from the colon. Underlying colonic malignancy however is difficult to exclude. 3. There is hydronephrosis in the left kidney and hydroureter related to distal ureteral obstruction from above mentioned inflammatory process. AFP 11.4, CEA 147.1, Ca125 49.3. S/P aspiration/bx of liver mass/fluid. cx neg. bx pending On Zosyn for possible diverticulitis. Improved. - Abnormal imaging involving the sigmoid colon, diverticulitis vs. malignancy. CT as above. AFP 11.4, CEA 147.1, Ca125 49.3. Zosyn. CRS following. Will need colonoscopy, but will defer timing to CRS as they are on case. No family hx of cancer. - Liver mass vs. abscess. AFP 11.4, CEA 147.1, Ca125 49.3.S/P CT guided aspiration and biopsy of the patient's mass in the left lobe of the liver. Per the Invasive Radiology note, a small amount of serous fluid was obtained and sent for C&S , pathology. He was unable to place a drain, as there was no defined cavity to place an abscess drain. no No family hx of cancer. abscess cx neg, path revealed no tissue - Changes in bowel habits with new onset constipation. Usually regular bowel movements. Sudden onset of constipation with small stools. Tuesday she took prunes, prune juice, colace, and suppository and then had diarrhea x 3 days. No melena or hematochezia. - Anemia. hgb 7.3 - Hypokalemia. K+ 3.3. - HTN per primary PLAN: - Monitor HH - Transfuse as necessary - CRS following - Supportive care - Cont. Zosyn - defer further E&T to colorectal, GI will sign off. please reconsult if needed - Pt seen and examined by Dr. Johnson and myself and this note is written on his behalf. Amalia Tran Sep 24, 2016 15:41
[2016-09-24] MEDS ORDERED: ONDANSETRON HCL 4 MG/2 ML VIAL ONE (16:29)
[2016-09-24] MEDS ORDERED: MIDAZOLAM HCL 2 MG/2 ML VIAL ONE (16:29)
[2016-09-24] MEDS ORDERED: fentaNYL CITRATE 250 MCG/5 ML AMP ONE (16:29)
--- NOTE | 2016-09-24 17:07 | PD.RAD ---
Post CT Procedure Prog Note Pre Procedure Diagnosis: (1) Liver mass, left lobe Post Procedure Diagnosis: (1) Liver mass, left lobe Procedure Date: Sep 24, 2016 Supervising Radiologist: Tone Nieves Anesthesia: Local, Conscious Sedation Plan of Activity Patient to Unit: PACU Patient Condition: Fair Additional Comments: PT post repeat liver biopsy. 4 18 gauge core samples taken Samples sent for pathology, culture and place in RPR. Large core samples obtained. See PACS Report for procedural detail/treatment Tone Nieves MD Sep 24, 2016 17:07
[2016-09-24] MEDS: PANTOPRAZOLE SODIUM 40 MG VIAL IV PUSH SCH (18:11)
[2016-09-24] MEDS: POTASSIUM CHLORIDE INJ 30 MEQ in DEXT 5%-NACL 0.9% 1000 ML INJ 1,000 ML IV SCH (19:27)
[2016-09-25] MEDS: PIPERACIL-TAZO 3.375 GM PREMIX 50 ML IV SCH ×4 (04:45→21:06)
[2016-09-25] MEDS: POLYETHYLENE GLYCOL 17 GM PKG PO SCH (07:58)
[2016-09-25] MEDS: MULTIVITAMINS/IRON/MINERALS CHEWABLE TAB CHEW SCH (07:59)
[2016-09-25] MEDS: HYDROmorphone HCL PF 1 MG/ML VIAL IV PUSH PRN ×2 (07:59→17:36)
[2016-09-25 08:00] VITALS: BP 144/65; PULSE 86; RESP 16; TEMP 98.6; O2SAT 94
--- NOTE | 2016-09-25 10:55 | HHI.PR ---
Subjective Remarks tolerating po well had a good bowel movement this am Objective Vitals Vital Signs Date Time Temp Pulse Resp B/P Pulse Ox O2 Delivery O2 Flow Rate FiO2 09/25/16 08:00 98.6 86 16 144/65 94 09/24/16 23:30 99.3 89 17 130/61 94 09/24/16 20:05 98.8 100 17 141/63 99 09/24/16 19:23 99.3 102 18 119/58 93 09/24/16 17:41 98.7 103 17 128/58 94 09/24/16 16:00 100.5 98 17 128/61 97 09/24/16 15:28 100.1 100 16 128/61 95 09/24/16 12:00 99.3 102 19 144/64 95 I/O 09/24/16 09/24/16 09/24/16 09/25/16 09/25/16 09/25/16 07:00 15:00 23:00 07:00 15:00 23:00 Intake Total 778 ml 736 ml 1010 ml 1010 ml Balance 778 ml 736 ml 1010 ml 1010 ml Intake Oral 360 ml 400 ml 360 ml 360 ml IV Total 418 ml 336 ml 400 ml 400 ml Packed Cells 250 ml 250 ml # Voids 2 5 2 2 # Bowel Movements 3 Result Diagram: 09/24/16 1037 09/24/16 1037 Imaging Last Impressions Needle Aspiration CT 09/21/16 0000 Signed Impressions: Service Date/Time: Wednesday, September 21, 2016 16:02 - CONCLUSION: Uncomplicated CT-guided aspiration and biopsy of the patient's mass in the left lobe of the liver. Tone Nieves MD Abdomen/Pelvis CT 09/20/16 1237 Signed Impressions: Service Date/Time: Tuesday, September 20, 2016 15:39 - CONCLUSION: 1. Left hepatic lobe low attenuating mass may represent necrotic malignancy or abscess. 2. Findings there is suspicious for acute diverticulitis of sigmoid colon and the left hepatic lobe lesion could potentially be infection seated from the colon. Underlying colonic malignancy however is difficult to exclude. 3. There is hydronephrosis in the left kidney and hydroureter related to distal ureteral obstruction from above mentioned inflammatory process. Eladio Emanuel MD Chest X-Ray 09/20/16 0000 Signed Impressions: Service Date/Time: Tuesday, September 20, 2016 17:54 - CONCLUSION: No acute disease. Demetrius Pineda MD Objective Remarks awake and alert, NAD anicteric lungs clear regular rhythm abdomen- soft, + bowel sounds, no guarding or rigidity extremities no edema Procedures 09/21- CT guided needle aspiration and biopsy of liver mass 09/24- liver biopsy A/P Assessment and Plan 80-year-old female presenting with anorexia or weight loss or abdominal pain on and off constipation for the past since July treated as an outpatient for acute diverticulitis now presenting with persistence lower abdominal pain Acute diverticulitis rule out malignancy and rule out abscess. Hepatic masses rule out abscess versus malignancy S/P CT guided needle biopsy, not enough space for drain elevated tumor markers on IV Zosyn will continue at 3.375 mg every 6- colorectal surgery- Dr. Deleon ff. GI ff continue IV fluids with potassium When necessary IV pain meds repeat biopsy done 09/24- ff results 09/21 - liber biopsy - pathology- no liver tissue identified. negative fluid cultures, Left hydronephrosis on CT secondary to mass effect. Microscopic hematuria- asymptomatic History of hypertension continue on Cozaar 25 mg daily Iron deficiency anemia - give IV Iron x 1. po Iron supplements HYpokalemia- - improved KCL in IVF- recheck today PPI for GI prophylaxis Pt up and ambulating. CM consult- home health care nursing if able to OP ff up with GI OP ff up with CRS in 2 weeks Kim Tristan MD Sep 25, 2016 10:55
--- NOTE | 2016-09-25 11:04 | HHI.PR ---
Subjective Remarks Abdominal pain - diverticulitis vs cancer intermittent nausea Moving bowels well with MiraLax Objective Vital Signs Date Time Temp Pulse Resp B/P Pulse Ox O2 Delivery O2 Flow Rate FiO2 09/25/16 08:00 98.6 86 16 144/65 94 09/24/16 23:30 99.3 89 17 130/61 94 09/24/16 20:05 98.8 100 17 141/63 99 09/24/16 19:23 99.3 102 18 119/58 93 09/24/16 17:41 98.7 103 17 128/58 94 09/24/16 16:00 100.5 98 17 128/61 97 09/24/16 15:28 100.1 100 16 128/61 95 09/24/16 12:00 99.3 102 19 144/64 95 I/O 09/24/16 09/24/16 09/24/16 09/25/16 09/25/16 09/25/16 06:59 14:59 22:59 06:59 14:59 22:59 Intake Total 778 ml 736 ml 1010 ml 1010 ml Balance 778 ml 736 ml 1010 ml 1010 ml Intake Oral 360 ml 400 ml 360 ml 360 ml IV Total 418 ml 336 ml 400 ml 400 ml Packed Cells 250 ml 250 ml # Voids 2 5 2 2 # Bowel Movements 3 Result Diagram: 09/24/16 1037 09/24/16 1037 Objective Remarks nontender Assessment and Plan Assessment and Plan Home per Medicine I will sign off Followup with me in office in 2-3 weeks. Continue MiraLax after discharge Fabiola Deleon MD Sep 25, 2016 11:04
[2016-09-25 12:00] VITALS: BP 155/67; PULSE 83; RESP 18; TEMP 99; O2SAT 95
[2016-09-25 13:22] LABS: BICARBONATE 26.3 MEQ/L (21.0-32.0); POTASSIUM 3.5 MEQ/L (3.5-5.1)
--- NOTE | 2016-09-25 13:34 | HHI.FF ---
Face to Face Verification Diagnosis: (1) Liver mass, left lobe (2) Urinary tract infection (3) Diverticulitis Home Health Aide Order: To Assist In: Bathing and personal care Stator Tester Order: To Evaluate: Living conditions/environment, Support services I have seen patient Molly Qiu on 09/25/16. My clinical findings support the need for the requested home health care services because: Ltd mobility - disease progression Deconditioned w/ increased weakness Need for psychosocial assistance I certify that my clinical findings support that this patient is homebound because: Need for psychosocial assistance Kim Tristan MD Sep 25, 2016 13:33
[2016-09-25] MEDS: POTASSIUM CHLORIDE INJ 30 MEQ in DEXT 5%-NACL 0.9% 1000 ML INJ 1,000 ML IV SCH ×3 (14:48→17:25)
[2016-09-25 16:00] VITALS: BP 150/68; PULSE 88; RESP 18; TEMP 101.1; O2SAT 91
[2016-09-25] MEDS: PANTOPRAZOLE SODIUM 40 MG VIAL IV PUSH SCH (16:13)
[2016-09-25] MEDS ORDERED: POLY17S PO (16:14)
[2016-09-25] MEDS ORDERED: FLINT2 CHEW (16:14)
[2016-09-25] MEDS ORDERED: LEVO25SO PO (16:21)
[2016-09-25] MEDS ORDERED: METR-1 PO (16:24)
[2016-09-25] MEDS ORDERED: ACETAMINOPHEN 500 MG CPLT PO PRN (17:00)
[2016-09-25] MEDS: ONDANSETRON HCL 4 MG/2 ML VIAL IV PUSH PRN (17:23)
[2016-09-25] MEDS: POTASSIUM CHLORIDE 25 MEQ EFFERVESCENT TAB PO SCH (17:35)
[2016-09-25] MEDS: LOSARTAN 25 MG TAB PO SCH (17:36)
[2016-09-25 19:33] LABS: AUTOMATED NEUTROPHIL # 12.6 TH/MM3 (1.8-7.7); BASOPHIL # 0.1 TH/MM3 (0-0.2); BASOPHIL % 0.6 % (0.0-2.0); EOSINOPHIL # 0.1 TH/MM3 (0-0.4); EOSINOPHIL % 0.4 % (0.0-4.0); HEMATOCRIT 29.1 % (35.0-46.0); HEMO FLAGS DIFF FINAL; LYMPH % 7.6 % (9.0-44.0); LYMPHOCYTE # 1.2 TH/MM3 (1.0-4.8); MEAN CELL VOLUME 73.8 FL (80.0-100.0); MEAN CORPUSCULAR HEMOGLOBIN 23.8 PG (27.0-34.0); MEAN CORPUSCULAR HGB CONC 32.3 % (32.0-36.0); MONO % 13.2 % (0.0-8.0); NEUT % 78.2 % (16.0-70.0); PLATELET COUNT 105 TH/MM3 (150-450); RED BLOOD COUNT 3.95 MIL/MM3 (4.00-5.30); RED CELL DISTRIBUTION WIDTH 21.8 % (11.6-17.2)
[2016-09-25 20:00] VITALS: BP 120/59; PULSE 94; RESP 18; TEMP 96.9; O2SAT 92
[2016-09-26] VITALS: BP 133/65; PULSE 85; RESP 18; TEMP 97; O2SAT 92
[2016-09-26] MEDS: PIPERACIL-TAZO 3.375 GM PREMIX 50 ML IV SCH ×3 (05:55→16:00)
[2016-09-26] MEDS: HYDROmorphone HCL PF 1 MG/ML VIAL IV PUSH PRN ×2 (06:35→12:44)
[2016-09-26] MEDS: ONDANSETRON HCL 4 MG/2 ML VIAL IV PUSH PRN (07:19)
[2016-09-26 08:00] VITALS: BP 145/63; PULSE 86; RESP 20; TEMP 98; O2SAT 92
[2016-09-26] MEDS: LOSARTAN 25 MG TAB PO SCH (08:08)
[2016-09-26] MEDS: MULTIVITAMINS/IRON/MINERALS CHEWABLE TAB CHEW SCH (08:08)
[2016-09-26] MEDS: POLYETHYLENE GLYCOL 17 GM PKG PO SCH (08:08)
[2016-09-26] MEDS: POTASSIUM CHLORIDE 25 MEQ EFFERVESCENT TAB PO SCH (08:08)
[2016-09-26] MEDS: POTASSIUM CHLORIDE INJ 30 MEQ in DEXT 5%-NACL 0.9% 1000 ML INJ 1,000 ML IV SCH ×2 (11:06→12:10)
[2016-09-26 12:00] VITALS: BP 131/68; PULSE 87; RESP 20; TEMP 97.5; O2SAT 95
--- NOTE | 2016-09-26 12:57 | HHI.PR ---
Subjective Remarks + BM after Miralax tolerating po better today pain better now afebrile up and ambulating DC held yesterday pm spiked 101, WBC- up Objective Vitals Vital Signs Date Time Temp Pulse Resp B/P Pulse Ox O2 Delivery O2 Flow Rate FiO2 09/26/16 12:00 97.5 87 20 131/68 95 09/26/16 08:00 98.0 86 20 145/63 92 09/26/16 00:00 97.0 85 18 133/65 92 09/25/16 20:00 96.9 94 18 120/59 92 09/25/16 16:00 101.1 88 18 150/68 91 I/O 09/25/16 09/25/16 09/25/16 09/26/16 09/26/16 09/26/16 06:59 14:59 22:59 06:59 14:59 22:59 Intake Total 1010 ml 1000 ml 609 ml 550 ml Balance 1010 ml 1000 ml 609 ml 550 ml Intake Oral 360 ml 240 ml 120 ml IV Total 400 ml 1000 ml 369 ml 430 ml Packed Cells 250 ml # Voids 2 3 3 # Bowel Movements 0 1 Result Diagram: 09/25/16 1727 09/25/16 1230 Imaging Last Impressions Needle Aspiration CT 09/21/16 0000 Signed Impressions: Service Date/Time: Wednesday, September 21, 2016 16:02 - CONCLUSION: Uncomplicated CT-guided aspiration and biopsy of the patient's mass in the left lobe of the liver. Tone Nieves MD Abdomen/Pelvis CT 09/20/16 1237 Signed Impressions: Service Date/Time: Tuesday, September 20, 2016 15:39 - CONCLUSION: 1. Left hepatic lobe low attenuating mass may represent necrotic malignancy or abscess. 2. Findings there is suspicious for acute diverticulitis of sigmoid colon and the left hepatic lobe lesion could potentially be infection seated from the colon. Underlying colonic malignancy however is difficult to exclude. 3. There is hydronephrosis in the left kidney and hydroureter related to distal ureteral obstruction from above mentioned inflammatory process. Eladio Emanuel MD Chest X-Ray 09/20/16 0000 Signed Impressions: Service Date/Time: Tuesday, September 20, 2016 17:54 - CONCLUSION: No acute disease. Demetrius Pineda MD Objective Remarks awake and alert, NAD anicteric lungs clear regular rhythm abdomen- soft, + bowel sounds, no guarding or rigidity, steril strips in place- no signs of erythema from biopsy site extremities no edema Procedures 09/21- CT guided needle aspiration and biopsy of liver mass 09/24- liver biopsy A/P Assessment and Plan 80-year-old female presenting with anorexia or weight loss or abdominal pain on and off constipation for the past since July treated as an outpatient for acute diverticulitis now presenting with persistence lower abdominal pain Acute diverticulitis rule out malignancy and rule out abscess. FEver of 101- 09/25- now t down. recheck CBC now if better DC on Levaquin + Flagyl Hepatic masses rule out abscess versus malignancy S/P CT guided needle biopsy, not enough space for drain elevated tumor markers on IV Zosyn will continue at 3.375 mg every 6- colorectal surgery- Dr. Deleon ff. GI ff continue IV fluids with potassium When necessary IV pain meds repeat biopsy done 09/24- ff results 09/21 - liber biopsy - pathology- no liver tissue identified. negative fluid cultures, Left hydronephrosis on CT secondary to mass effect. Microscopic hematuria- asymptomatic History of hypertension continue on Cozaar 25 mg daily Iron deficiency anemia - give IV Iron x 1. po Iron supplements HYpokalemia- - improved - KCL daily PPI for GI prophylaxis Pt up and ambulating. CM assistance appreciated - home health care nursing arranged PCP ff up OP ff up with GI OP ff up with CRS in 2 weeks Kim Tristan MD Sep 26, 2016 12:57
--- NOTE | 2016-09-26 13:38 | HHI.PR ---
Subjective Remarks Abdominal pain - diverticulitis vs cancer fever last pm diarrhea with MiraLax Objective Vital Signs Date Time Temp Pulse Resp B/P Pulse Ox O2 Delivery O2 Flow Rate FiO2 09/26/16 12:00 97.5 87 20 131/68 95 09/26/16 08:00 98.0 86 20 145/63 92 09/26/16 00:00 97.0 85 18 133/65 92 09/25/16 20:00 96.9 94 18 120/59 92 09/25/16 16:00 101.1 88 18 150/68 91 I/O 09/25/16 09/25/16 09/25/16 09/26/16 09/26/16 09/26/16 07:00 15:00 23:00 07:00 15:00 23:00 Intake Total 1010 ml 1000 ml 609 ml 550 ml Balance 1010 ml 1000 ml 609 ml 550 ml Intake Oral 360 ml 240 ml 120 ml IV Total 400 ml 1000 ml 369 ml 430 ml Packed Cells 250 ml # Voids 2 3 3 # Bowel Movements 0 1 Result Diagram: 09/25/16 1727 09/25/16 1230 Objective Remarks nontender Assessment and Plan Assessment and Plan Home per Medicine Suggested a half dose of the MiraLax Fabiola Deleon MD Sep 26, 2016 13:38
[2016-09-26 14:31] LABS: AUTOMATED NEUTROPHIL # 11.7 TH/MM3 (1.8-7.7); BASOPHIL % 0.3 % (0.0-2.0); EOSINOPHIL # 0.1 TH/MM3 (0-0.4); EOSINOPHIL % 0.7 % (0.0-4.0); HEMATOCRIT 31.4 % (35.0-46.0); LYMPH % 6.4 % (9.0-44.0); LYMPHOCYTE # 0.9 TH/MM3 (1.0-4.8); MEAN CELL VOLUME 74.7 FL (80.0-100.0); MEAN CORPUSCULAR HEMOGLOBIN 23.5 PG (27.0-34.0); MEAN CORPUSCULAR HGB CONC 31.5 % (32.0-36.0); MONO % 12.6 % (0.0-8.0); PLATELET COUNT 92 TH/MM3 (150-450); RED BLOOD COUNT 4.21 MIL/MM3 (4.00-5.30); RED CELL DISTRIBUTION WIDTH 22.6 % (11.6-17.2); WHITE BLOOD COUNT 14.6 TH/MM3 (4.0-11.0)
[2016-09-26 14:33] LABS: HEMO FLAGS AUTO DIFF
[2016-09-26 15:06] LABS: BANDS 6 % (0-6); EOSINOPHILS 1 % (0-4); NEUTROPHIL # MANUAL DIFF 12.6 TH/MM3 (1.8-7.7); POLYS (SEG NEUTROPHILS) 80 % (16-70); WBC DIFF SAMPLE 100
[2016-09-26 15:07] LABS: PLATELET ESTIMATE SMEAR LOW (NORMAL); PLATELET MORPHOLOGY GIANT (NORMAL); SCAN/DIFF FINAL DIFF MANUAL
[2016-09-26 16:00] VITALS: BP 158/72; PULSE 90; RESP 20; TEMP 99.6; O2SAT 93
--- NOTE | 2016-09-26 16:12 | RADRPT ---
EXAM DATE/TIME: 09/26/2016 15:18 [facility] COMPARISON: No previous studies available for comparison. INDICATIONS : Left arm discoloration. MEDICAL HISTORY : Gastroesophageal reflux disease. Hypercholesterolemia. Chronic obstructive pulmonary disease. Asthma. Hypertension. Arthritis. Diabetes. SURGICAL HISTORY : Cholecystectomy. Appendectomy. Hysterectomy. ENCOUNTER: Initial ACUITY: 3 days PAIN SCORE: 10/10 LOCATION: Left arm. FINDINGS: There is spontaneous flow documented in the brachial, basilic, cephalic, axillary, and subclavian vei ns. The vessels are compressible and augmentation response is documented. No filling defects are se en. The flow is phasic with respiration. Direction of flow in the jugular vein is caudal. CONCLUSION: Normal examination. Eladio Emanuel MD on September 26, 2016 at 16:11 Board Certified Radiologist. This report was verified electronically.
[2016-09-26] MEDS: PANTOPRAZOLE SODIUM 40 MG VIAL IV PUSH SCH (16:32)
[2016-09-26] MEDS ORDERED: KLYTECL PO (18:55)
[2016-09-26] MEDS ORDERED: ZOFR4SOL PO (19:07)
[2016-09-26] MEDS ORDERED: ULTR50TA5 PO (19:10)
--- NOTE | 2016-09-26 19:18 | HHI.DS ---
Discharge Summary Admission Date Sep 20, 2016 at 16:56 Discharge Date: Sep 26, 2016 Admitting Diagnosis Abdominal pain; Liver mass/abscess (1) Diverticulitis ICD Code: K57.92 Diagnosis: Principal (2) Liver mass, left lobe ICD Code: R16.0 Diagnosis: Secondary Procedures 09/21- CT guided needle aspiration and biopsy of liver mass 09/24- liver biopsy Brief History - From Admission Patient is an 80-year-old female with history of hypertension diabetes type 2 who states had been having on and off abdominal lower abdominal discomfort the past 2 weeks now associated with poor by mouth appetite. Patient denies any fever but feels cold. Was seen sometime in July judicious lower abdominal pain and was prescribed antibiotics for 7-10 days. She also states history of constipation. Has been self-medicating with ltzk-sys-jgikdbw stool softeners, prune juice,. At one point was told that she might have irritable bowel syndrome. Persistence of this lower abdominal pain prompted consult to ER and was admitted for further evaluation. Patient states positive weight loss. For about 8 pounds. Denies any actual vomiting mild nausea patient still states that she still does passively prophylaxis. Denies any fever or chills. Never had a colonoscopy in the past. CBC/BMP: 09/26/16 1358 09/25/16 1230 Significant Findings Laboratory Tests Test 09/24/16 09/24/16 09/25/16 09/25/16 10:37 14:48 12:30 17:27 White Blood Count 12.4 TH/MM3 16.0 TH/MM3 (4.0-11.0) (4.0-11.0) Red Blood Count 3.42 MIL/MM3 3.95 MIL/MM3 (4.00-5.30) (4.00-5.30) Hemoglobin 7.2 GM/DL 9.4 GM/DL (11.6-15.3) (11.6-15.3) Hematocrit 23.5 % 29.1 % (35.0-46.0) (35.0-46.0) Mean Corpuscular Volume 68.9 FL 73.8 FL (80.0-100.0) (80.0-100.0) Mean Corpuscular Hemoglobin 21.2 PG 23.8 PG (27.0-34.0) (27.0-34.0) Mean Corpuscular Hemoglobin 30.7 % Concent (32.0-36.0) Red Cell Distribution Width 20.7 % 21.8 % (11.6-17.2) (11.6-17.2) Platelet Count 100 TH/MM3 105 TH/MM3 (150-450) (150-450) Monocytes (%) (Auto) 19.9 % 13.2 % (0.0-8.0) (0.0-8.0) Neutrophils # (Auto) 8.4 TH/MM3 12.6 TH/MM3 (1.8-7.7) (1.8-7.7) Monocytes # (Auto) 2.5 TH/MM3 2.1 TH/MM3 (0-0.9) (0-0.9) Platelet Estimate LOW (NORMAL) Platelet Morphology Comment ENLARGED (NORMAL) Potassium Level 2.6 MEQ/L (3.5-5.1) Chloride Level 109 MEQ/L 108 MEQ/L (98-107) (98-107) Blood Urea Nitrogen 6 MG/DL (7-18) 6 MG/DL (7-18) Estimat Glomerular Filtration 83 ML/MIN (>89) 86 ML/MIN (>89) Rate Random Glucose 167 MG/DL 144 MG/DL (74-106) (74-106) Calcium Level 8.2 MG/DL 8.3 MG/DL (8.5-10.1) (8.5-10.1) Aspartate Amino Transf 50 U/L (15-37) (AST/SGOT) Alkaline Phosphatase 219 U/L (45-117) Total Protein 6.1 GM/DL (6.4-8.2) Albumin 2.4 GM/DL (3.4-5.0) Prothrombin Time 13.4 SEC (9.8-11.6) Mean Platelet Volume 11.5 FL (7.0-11.0) Neutrophils (%) (Auto) 78.2 % (16.0-70.0) Lymphocytes (%) (Auto) 7.6 % (9.0-44.0) Test 09/26/16 13:58 White Blood Count 14.6 TH/MM3 (4.0-11.0) Hemoglobin 9.9 GM/DL (11.6-15.3) Hematocrit 31.4 % (35.0-46.0) Mean Corpuscular Volume 74.7 FL (80.0-100.0) Mean Corpuscular Hemoglobin 23.5 PG (27.0-34.0) Mean Corpuscular Hemoglobin 31.5 % Concent (32.0-36.0) Red Cell Distribution Width 22.6 % (11.6-17.2) Platelet Count 92 TH/MM3 (150-450) Neutrophils (%) (Auto) 80.0 % (16.0-70.0) Lymphocytes (%) (Auto) 6.4 % (9.0-44.0) Monocytes (%) (Auto) 12.6 % (0.0-8.0) Neutrophils # (Auto) 11.7 TH/MM3 (1.8-7.7) Lymphocytes # (Auto) 0.9 TH/MM3 (1.0-4.8) Monocytes # (Auto) 1.8 TH/MM3 (0-0.9) Neutrophils % (Manual) 80 % (16-70) Lymphocytes % 5 % (9-44) Neutrophils # (Manual) 12.6 TH/MM3 (1.8-7.7) Platelet Estimate LOW (NORMAL) Platelet Morphology Comment GIANT (NORMAL) Imaging Last Impressions Upper Extremity Ultrasound 09/26/16 0000 Signed Impressions: Service Date/Time: Monday, September 26, 2016 15:18 - CONCLUSION: Normal examination. Eladio Emanuel MD Needle Aspiration CT 09/21/16 0000 Signed Impressions: Service Date/Time: Wednesday, September 21, 2016 16:02 - CONCLUSION: Uncomplicated CT-guided aspiration and biopsy of the patient's mass in the left lobe of the liver. Tone Nieves MD Abdomen/Pelvis CT 09/20/16 1237 Signed Impressions: Service Date/Time: Tuesday, September 20, 2016 15:39 - CONCLUSION: 1. Left hepatic lobe low attenuating mass may represent necrotic malignancy or abscess. 2. Findings there is suspicious for acute diverticulitis of sigmoid colon and the left hepatic lobe lesion could potentially be infection seated from the colon. Underlying colonic malignancy however is difficult to exclude. 3. There is hydronephrosis in the left kidney and hydroureter related to distal ureteral obstruction from above mentioned inflammatory process. Eladio Emanuel MD Chest X-Ray 09/20/16 0000 Signed Impressions: Service Date/Time: Tuesday, September 20, 2016 17:54 - CONCLUSION: No acute disease. Demetrius Pineda MD PE at Discharge awake and alert, NAD anicteric lungs clear regular rhythm abdomen- soft, + bowel sounds, no guarding or rigidity, steril strips in place- no signs of erythema from biopsy site extremities no edema Pt update on day of discharge awake and alert, pain controlled no nausea or vomiting Hospital Course 80-year-old female presenting with anorexia or weight loss or abdominal pain on and off constipation for the past since July treated as an outpatient for acute diverticulitis now presenting with persistence lower abdominal pain Acute diverticulitis rule out malignancy and rule out abscess. FEver of 101- 09/25- now t down. recheck CBC now if better DC on Levaquin + Flagyl Hepatic masses rule out abscess versus malignancy S/P CT guided needle biopsy, not enough space for drain elevated tumor markers on IV Zosyn will continue at 3.375 mg every 6- colorectal surgery- Dr. Deleon ff. GI ff continue IV fluids with potassium When necessary IV pain meds repeat biopsy done 09/24- ff results 09/21 - liber biopsy - pathology- no liver tissue identified. negative fluid cultures, Left hydronephrosis on CT secondary to mass effect. Microscopic hematuria- asymptomatic History of hypertension continue on Cozaar 25 mg daily Iron deficiency anemia - give IV Iron x 1. po Iron supplements HYpokalemia- - improved - KCL daily PPI for GI prophylaxis Pt up and ambulating. CM assistance appreciated - home health care nursing arranged PCP ff up OP ff up with GI OP ff up with [facility] in 2 weeks Pt Condition on Discharge: Stable Discharge Disposition: Disch w/ Home Health Serv Discharge Time: > 30 minutes Discharge Instructions DIET: Follow Instructions for: Heart Healthy Diet Speech Therapy-Diet Recommends: Regular Activities you can perform: Weight Bearing as Shoaib Activities to Avoid: Strenuous Activity Follow up Referrals: Colorectal Surgery - 2 Weeks with Fabiola Deleon MD PCP Follow-up - 09/28/16 with [facility] New Orders: BASIC METABOLIC PROF - 09/29/16 New Medications: Levofloxacin Liq (Levofloxacin Liq) 25 Mg/Ml Soln 500 MG PO Q24H Infection Days 7 Ref 0 ML Metronidazole (Flagyl) 500 Mg Tab 500 MG PO QID Infection Days 7 Ref 0 TAB Ondansetron Liq (Zofran Liq) 4 Mg/5 Ml Soln 4 MG PO Q6H PRN NAUSEA OR VOMITING Days 7 Ref 0 ML Tramadol (Ultram) 50 Mg Tab 50 MG PO Q8H PRN PAIN #10 Ref 0 TAB Cuwj-Ucyrytqf-Esmkfkzr (Flintstones Complete) 60 Mg Tab 1 TAB CHEW DAILY supp Days 30 EA Polyethylene Glycol 3350 Powder (Polyethylene Glycol 3350 Powder) 17 Gm Pow 17 GM PO DAILY BM Days 30 BOTTLE Potassium Bicarb-Chloride Effervescent (Effervescent Potassium Chloride 25 Meq) 25 Meq Tab 25 MEQ PO DAILY elecrep #15 TAB Continued Medications: Losartan (Losartan) 25 Mg Tab 25 MG PO DAILY Blood Pressure Management #30 Ref 0 TAB Omeprazole (Omeprazole) 20 Mg Tab 20 MG PO DAILY #30 Ref 0 TAB Kim Tristan MD Sep 26, 2016 19:18
--- NOTE | 2016-10-01 09:00 | RADRPT ---
EXAM DATE/TIME: 09/24/2016 16:37 [facility] COMPARISON: No previous studies available for comparison. INDICATIONS : Liver mass. SEDATION TIME: 45 minutes BIOPSY SITE: liver MEDICATION(S): 1.) 2 mg midazolam (Versed) IV 2.) 100 mcg Morphine IV DEVICE(S): 1.) 16 gauge Santiago blunt needle 10cm 2.) 18 gauge Temno core biopsy needle 15cm MEDICAL HISTORY : Hypertension. SURGICAL HISTORY : Cholecystectomy Appendectomy. Hysterectomy. ENCOUNTER: Subsequent ACUITY: 2 days PAIN SCORE: 0/10 LOCATION: anterior A total of four core specimen(s) were obtained and sent to the laboratory for pathologic evaluation. PROCEDURE: 1. CT guided liver biopsy. 2. Conscious sedation with continuous EKG and oximetry monitoring. Prior to the procedure informed consent was obtained. Any appropriate prior imaging studies were rev iewed. Using automated exposure control and adjustment of the mA and/or kV according to patient size, radiat ion dose was kept as low as reasonably achievable to obtain optimal diagnostic quality images. DICOM format image data is available electronically for review and comparison. The patient undergone previous aspiration of the lesion for culture and sensitivity as it was felt to be probable abscess. There was no growth within the cultures. The patient returned for large core bi opsy. The site was prepped in a sterile fashion. Full sterile technique was used, including cap, mask, carson rile gloves and gown and a large sterile sheet. Hand hygiene and 2% chlorhexidine and/or betadine/al cohol prep was utilized per protocol for cutaneous antisepsis. The skin and subcutaneous tissues wer e infiltrated with local anesthetic solution. With CT guidance the previously identified target was localized. Biopsy was performed using the presc ribed needle as above. Adequate hemostasis was obtained with compression at the puncture site. Follow-up CT scan reveals no hemorrhage. The patient tolerated the procedure well and there were no complications. The patient was returned to the Radiology Outpatient Unit in stable condition. CONCLUSION: Uncomplicated CT guided biopsy. Multiple 18 gauge cores were obtained. Samples were sent in formalin for pathologic, an RPR solution and for culture. Tone Nieves MD on October 01, 2016 at 8:57 Board Certified Radiologist. This report was verified electronically.
--- NOTE | 2016-10-06 17:18 | PQ ---
Physician Query Response Document PATIENT: JUSTYN VILLALTA : 1935 ADMIT DATE: 09/20/2016 4:56 PM DISCH DATE: 09/26/2016 7:39 PM RESPONDING PROVIDER #: [email or web address] QUERY TEXT: Clarification of Clinical Diagnostic Findings Please clarify documentation or clinical relevance for the clinical / diagnostic findings or whether those are insignificant or unable to be further specified: Are you in agreement with the diagnosis f rom the Pathology report of 09/24/16? If you have any additional questions/comments and/or concerns, please do not hesitate to reach out to the CDI/Coding Hotline, Ext. [phone]. The patient's Clinical Indicators include: Pathology report for repeat liver biopsy of 09/24/16: FINAL DIAGNOSIS: LIVER, CT-GUIDED NEEDLE BIOPSY: - PREDOMINANTLY NECROTIC ADENOCARCINOMA (SEE COMMENT). 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 Consult report 09/21/16, Dr. Eladio Deleon-Labs: Interestingly, her tumor markers are up with an alpha-f etoprotein of 11.4, CEA of 147.1, CA-125 up 49.3. Progress Note 09/26/16 - Dr. Deleon: Subjective: Remarks - Abdominal pain - diverticulitis vs can cer Query created by: Ninoska Hurley on 09/29/2016 11:59 AM RESPONSE TEXT: Hepatic mass 2/2 necrotic adenocarcinoma s/p liver biopsy Electronically signed by: Kim Tristan MD 10/06/2016 5:15 PM
== END 2016-09-26 19:39 | disposition home health service (06) | DRG 436 ==
LOC: NEPC 12:06 → NEDA 16:56 → N07B 19:13
PROVIDERS: ADMIT Internal Medicine; ATTEND Internal Medicine
PROC: 0FB23ZX Excision of Left Lobe Liver, Percutaneous Approach, Diagnostic (ICD-10-PCS; principal; 2016-09-21)
PROC: 0F923ZX Drainage of Left Lobe Liver, Percutaneous Approach, Diagnostic (ICD-10-PCS; 2016-09-21)
PROC: 0FB23ZX Excision of Left Lobe Liver, Percutaneous Approach, Diagnostic (ICD-10-PCS; 2016-09-24)
PROC: 30233N1 Transfusion of Nonautologous Red Blood Cells into Peripheral Vein, Percutaneous Approach (ICD-10-PCS; 2016-09-24)
DX: C22.7 Other specified carcinomas of liver (principal); K57.32 Diverticulitis of large intestine without perforation or abscess without bleeding; N13.1 Hydronephrosis with ureteral stricture, not elsewhere classified; E11.9 Type 2 diabetes mellitus without complications; R16.0 Hepatomegaly, not elsewhere classified; R31.29 Other microscopic hematuria; I10 Essential (primary) hypertension; D50.9 Iron deficiency anemia, unspecified; E87.6 Hypokalemia; R63.4 Abnormal weight loss; K21.9 Gastro-esophageal reflux disease without esophagitis; Z87.891 Personal history of nicotine dependence; K59.00 Constipation, unspecified
CPT/HCPCS: 10160; 36430; 47000; 49406; 71010; 74177; 76937; 77012; 80048; 80053; 81001; 82105; 82378; 82728; 83540; 83550; 83605; 83690; 85007; 85025; 85027; 85610; 85730; 86304; 86850; 86900; 86901; 86920; 87015; 87040; 87070; 87086; 87102; 87116; 87176; 87205; 87206; 88300; 88307; 93005; 93971; 96360; C9113; J1170; J1756; J2060; J2250; J2405; J2543; J3010; J3480; J7030; J7042; P9016; Q9967

== ENCOUNTER 2016-10-06 06:16 | Inpatient (IN) | payer OTHER, MEDICARE ==
[2016-10-06] VITALS (7 sets, daily range): BP systolic 98–176; BP diastolic 51–71; PULSE 79–103; RESP 16–18; TEMP 98–99; O2SAT 92–97
[~2016-10-06] VITALS: Ht 152.4 cm; Wt 67.3 kg
[~2016-10-06 06:16] MED LIST changes: -CIPR500T4 PO; +FLINT2 CHEW; +KLYTECL PO; +LEVO25SO PO; +LOSA25TA PO; -LOSA25TA31 PO; -MACR100C2 PO; +POLY17S PO; +ULTR50TA5 PO; -ZANT150T2 PO; +ZOFR4SOL PO
[2016-10-06] MEDS ORDERED: LOSA25TA PO (06:38)
[2016-10-06] MEDS ORDERED: OMEP20TA PO (06:40)
[2016-10-06] MEDS ORDERED: SODIUM CHLORIDE 0.9% FLUSH 10 ML FLUSH IV FLUSH PRN (07:15)
--- NOTE | 2016-10-06 07:46 | PD ---
HPI Chief Complaint: Abdominal Pain Time Seen by Provider: 07:10 Travel History International Travel<30 days: No Contact w/Intl Traveler<30days: No Traveled to known affect area: No History of Present Illness HPI was here before and admitted for uti and diverticulitis, on flagyl but patient states she cannot take it because it makes her nauseous or vomit, so she has not been as compliant. patient felt chills, abd pain, crampy, lower abd, 09/20, assoc with nausea but denies fever. no apparent alleviating /aggravating factors.....surgeon is dr ana maría cardozo/pcp is dr lennie arnett [facility] Past Medical History Arthritis: Yes (hands) Asthma: Yes Cancer: No Cardiovascular Problems: Yes (htn) High Cholesterol: Yes COPD: Yes (bronchitis) Diabetes: Yes (DIET CONTROLLED) Patient Takes Glucophage: No Diminished Hearing: No GERD: Yes Genitourinary: No Hypertension: Yes Psychiatric: No Immunizations Current: Yes Tetanus Vaccination: Unknown Menopausal: Yes Past Surgical History Abdominal Surgery: Yes (choly, appy) Appendectomy: Yes Cholecystectomy: Yes Gynecologic Surgery: Yes (hysterectomy) Hysterectomy: Yes Other Surgery: Yes Social History Alcohol Use: No Tobacco Use: No Substance Use: No Allergies-Medications (Allergen,Severity, Reaction): Coded Allergies: Lipitor (Verified Allergy, Severe, MUSCLE PAIN, 09/20/16) Lovastatin (Verified Allergy, Severe, MUSCLE SPASM/PAIN, 09/20/16) Reported Meds & Prescriptions Reported Meds & Active Scripts Active Ultram (Tramadol HCl) 50 Mg Tab 50 Mg PO Q8H PRN Zofran Liq (Ondansetron HCl) 4 Mg/5 Ml Soln 4 Mg PO Q6H PRN 7 Days Effervescent Potassium Chloride 25 Meq (Potassium Bicarb/Potassium Chloride) 25 Meq Tab 25 Meq PO DAILY Polyethylene Glycol 3350 Powder (Polyethylene Glycol) 17 Gm Pow 17 Gm PO DAILY 30 Days Flintstones Complete (Iron/Minerals/Multivitamins) 60 Mg Tab 1 Tab CHEW DAILY 30 Days Reported Omeprazole 20 Mg Tab 20 Mg PO DAILY Losartan (Losartan Potassium) 25 Mg Tab 25 Mg PO DAILY Review of Systems Except as stated in HPI: all other systems reviewed are Neg General / Constitutional: Positive: Chills Gastrointestinal: Positive: Nausea, Abdominal Pain Physical Exam Narrative GENERAL: SKIN: Warm and dry. HEAD: Atraumatic. Normocephalic. EYES: Pupils equal and round. No scleral icterus. No injection or drainage. ENT: No nasal bleeding or discharge. Mucous membranes pink and moist. NECK: Trachea midline. No JVD. CARDIOVASCULAR: Regular rate and rhythm. RESPIRATORY: No accessory muscle use. Clear to auscultation. Breath sounds equal bilaterally. GASTROINTESTINAL: Abdomen soft, nondistended, tender to percussion over lower quadrants MUSCULOSKELETAL: Extremities without clubbing, cyanosis, or edema. No obvious deformities. NEUROLOGICAL: Awake and alert. No obvious cranial nerve deficits. Motor grossly within normal limits. Five out of 5 muscle strength in the arms and legs. Normal speech. PSYCHIATRIC: Appropriate mood and affect; insight and judgment normal. Data Data Last Documented VS Vital Signs Date Time Temp Pulse Resp B/P Pulse Ox O2 Delivery O2 Flow Rate FiO2 10/06/16 09:13 87 18 98/51 95 Room Air 10/06/16 06:19 99.0 Orders Complete Blood Count With Diff (10/06/16 07:12) Comprehensive Metabolic Panel (10/06/16 07:12) Lipase (10/06/16 07:12) Lactic Acid (10/06/16 07:12) Prothrombin Time / Inr (Pt) (10/06/16 07:12) Act Partial Throm Time (Ptt) (10/06/16 07:12) Urinalysis - C+S If Indicated (10/06/16 07:12) Ct Abd/Pel W/O Iv Contrast (10/06/16 07:12) Iv Access Insert/Monitor (10/06/16 07:12) Ecg Monitoring (10/06/16 07:12) Oximetry (10/06/16 07:12) Sodium Chloride 0.9% Flush (Ns Flush) (10/06/16 07:15) Electrocardiogram (10/06/16 07:12) Ckmb (Isoenzyme) Profile (10/06/16 07:12) Troponin I (10/06/16 07:12) Urine Culture (10/06/16 08:20) Metronidazole 500 Mg Inj (Flagyl 500 Mg (10/06/16 09:30) Ondansetron Inj (Zofran Inj) (10/06/16 09:30) Levofloxacin 750 Mg Premix Inj (Levaquin (10/06/16 09:30) Admit Order (Ed Use Only) (10/06/16 12:37) Admit To Inpatient (10/06/16 ) Vital Signs (Adult) MCKAY.Q4H (10/06/16 12:37) Buffer Inflated Pad / Telemetry MCKAY.Q8H (10/06/16 12:37) Sodium Chlor 0.9% 1000 Ml Inj (Ns 1000 M (10/06/16 13:00) Sodium Chloride 0.9% Flush (Ns Flush) (10/06/16 21:00) Inpatient Certification (10/06/16 ) Labs Laboratory Tests Test 10/06/16 10/06/16 07:20 08:20 White Blood Count 24.6 TH/MM3 Red Blood Count 4.41 MIL/MM3 Hemoglobin 10.4 GM/DL Hematocrit 32.6 % Mean Corpuscular Volume 73.9 FL Mean Corpuscular Hemoglobin 23.6 PG Mean Corpuscular Hemoglobin 32.0 % Concent Red Cell Distribution Width 23.5 % Platelet Count 161 TH/MM3 Mean Platelet Volume 10.8 FL Neutrophils (%) (Auto) 81.3 % Lymphocytes (%) (Auto) 3.3 % Monocytes (%) (Auto) 15.0 % Eosinophils (%) (Auto) 0.1 % Basophils (%) (Auto) 0.3 % Neutrophils # (Auto) 20.0 TH/MM3 Lymphocytes # (Auto) 0.8 TH/MM3 Monocytes # (Auto) 3.7 TH/MM3 Eosinophils # (Auto) 0.0 TH/MM3 Basophils # (Auto) 0.1 TH/MM3 CBC Comment AUTO DIFF Differential Total Cells 100 Counted Neutrophils % (Manual) 80 % Band Neutrophils % 7 % Lymphocytes % 2 % Monocytes % 10 % Neutrophils # (Manual) 21.6 TH/MM3 Metamyelocytes 1 % Promyelocytes 0 % Differential Comment FINAL DIFF MANUAL Platelet Estimate NORMAL Platelet Morphology Comment NORMAL Prothrombin Time 13.6 SEC Prothromb Time International 1.2 RATIO Ratio Activated Partial 25.6 SEC Thromboplast Time Sodium Level 139 MEQ/L Potassium Level 3.1 MEQ/L Chloride Level 103 MEQ/L Carbon Dioxide Level 28.5 MEQ/L Anion Gap 8 MEQ/L Blood Urea Nitrogen 6 MG/DL Creatinine 0.56 MG/DL Estimat Glomerular Filtration 104 ML/MIN Rate Random Glucose 129 MG/DL Lactic Acid Level 1.0 mmol/L Calcium Level 7.8 MG/DL Total Bilirubin 0.9 MG/DL Aspartate Amino Transf 57 U/L (AST/SGOT) Alanine Aminotransferase 17 U/L (ALT/SGPT) Alkaline Phosphatase 292 U/L Total Creatine Kinase 49 U/L Troponin I 0.02 NG/ML Total Protein 6.2 GM/DL Albumin 2.3 GM/DL Lipase 81 U/L Urine Color YELLOW Urine Turbidity HAZY Urine pH 6.5 Urine Specific [place] 1.015 Urine Protein TRACE mg/dL Urine Glucose (UA) NEG mg/dL Urine Ketones 40 mg/dL Urine Occult Blood TRACE Urine Nitrite NEG Urine Bilirubin NEG Urine Urobilinogen 2.0 MG/DL Urine Leukocyte Esterase LARGE Urine RBC 12 /hpf Urine WBC 22 /hpf Urine Squamous Epithelial 7 /hpf Cells Urine Bacteria RARE /hpf Urine Mucus FEW /lpf Microscopic Urinalysis Comment CULTURE INDICATED MDM Medical Decision Making Medical Screen Exam Complete: Yes Emergency Medical Condition: Yes Medical Record Reviewed: Yes Interpretation(s) SOME MOTION ARTIFACT BUT NSR AT 85, NONSPEC STT CHANGES BUT NO STEMI PATTERN NOTED Differential Diagnosis diverticulitis v divertic abscess v divertic perforation v sbo v ileus v atypical mi Narrative Course PATIENT FOUND TO HAVE LEUKOCYTOSIS IN 20'S, SO WAS TREATED WITH IV ABX RIGHT AWAY UPON AWAITING CT RESULTS, UA FINDINGS C/W UTI, AND CT C/W DIVERTICULITIS BUT WITHOUT COMPLICATIONS. PT ADMITTED FOR FURTHER IV ABX AD GI EVALUATION Critical Care Narrative CRITICAL CARE NOTE: With evaluation of the patient, labs, EKG, receipt of radiologic studies, administration of medications, reevaluation the patient and discussion of the patient with the admitting physicians, the total critical care time was [45] minutes. Time to perform other separately billable procedures was not included in the critical care time. Diagnosis Primary Impression: ACUTE SIGMOID DIVERTICULITIS Additional Impressions: UTI LEUKOCYTOSIS WITH BANDEMIA Admitting Information Admitting Physician Requests: Observation Jared Bynum MD Oct 06, 2016 07:46
[2016-10-06 07:58] LABS: BASOPHIL # 0.1 TH/MM3 (0-0.2); BASOPHIL % 0.3 % (0.0-2.0); EOSINOPHIL % 0.1 % (0.0-4.0); HEMATOCRIT 32.6 % (35.0-46.0); LYMPH % 3.3 % (9.0-44.0); LYMPHOCYTE # 0.8 TH/MM3 (1.0-4.8); MEAN CELL VOLUME 73.9 FL (80.0-100.0); MEAN CORPUSCULAR HEMOGLOBIN 23.6 PG (27.0-34.0); NEUT % 81.3 % (16.0-70.0); PLATELET COUNT 161 TH/MM3 (150-450); RED BLOOD COUNT 4.41 MIL/MM3 (4.00-5.30); RED CELL DISTRIBUTION WIDTH 23.5 % (11.6-17.2); WHITE BLOOD COUNT 24.6 TH/MM3 (4.0-11.0)
[2016-10-06 08:04] LABS: ALT (GPT) 17 U/L (10-53); HEMO FLAGS AUTO DIFF
[2016-10-06 08:05] LABS: APTT (PATIENT) 25.6 SEC (24.3-30.1); INTERNATIONAL NORMALIZED RATIO 1.2 RATIO; PROTHROMBIN TIME - PATIENT 13.6 SEC (9.8-11.6)
[2016-10-06 08:38] LABS: BANDS 7 % (0-6); METAMYELOCYTES 1 % (0-1); NEUTROPHIL # MANUAL DIFF 21.6 TH/MM3 (1.8-7.7); POLYS (SEG NEUTROPHILS) 80 % (16-70); PROMYELOCYTES 0 % (0-0); WBC DIFF SAMPLE 100
[2016-10-06 08:40] LABS: ALKALINE PHOSPHATASE 292 U/L (45-117); ANION GAP 8 MEQ/L (5-15); AST (GOT) 57 U/L (15-37); BICARBONATE 28.5 MEQ/L (21.0-32.0); BLOOD UREA NITROGEN 6 MG/DL (7-18); CHLORIDE 103 MEQ/L (98-107); GLOMERULAR FILTRATION RATE 104 ML/MIN (>89); PLATELET ESTIMATE SMEAR NORMAL (NORMAL); PLATELET MORPHOLOGY NORMAL (NORMAL); SCAN/DIFF FINAL DIFF MANUAL; SODIUM (NA) 139 MEQ/L (136-145); TOTAL BILIRUBIN ADULT 0.9 MG/DL (0.2-1.0)
[2016-10-06 08:51] LABS: CREATINE KINASE 49 U/L (26-192); POTASSIUM 3.1 MEQ/L (3.5-5.1)
[2016-10-06 09:02] LABS: BACTERIA, URINE RARE /hpf; BLOOD, URINE TRACE (NEG); COMMENT (UR) CULTURE INDICATED; CULTURE IF INDICATED CULTURE INDICATED; GLUCOSE,URINE NEG (NEG); KETONE, URINE 40 mg/dL (NEG); MUCUS URINE FEW /lpf (OCC); NITRITE,URINE NEG (NEG); PH, URINE 6.5 (5.0-8.5); SQUAMOUS EPITHELIAL CELL URINE 7 /hpf (0-5); URINE COLOR YELLOW (YELLW/STRAW)
[2016-10-06] MEDS ORDERED: LEVOFLOXACIN 750 MG PREMIX INJ 150 ML IV ONE (09:30)
[2016-10-06] MEDS ORDERED: metroNIDAZOLE 500 MG INJ 100 ML IV ONE (09:30)
[2016-10-06] MEDS ORDERED: ONDANSETRON HCL 4 MG/2 ML VIAL IV PUSH ONE (09:30)
--- NOTE | 2016-10-06 12:04 | RADRPT ---
EXAM DATE/TIME: 10/06/2016 11:36 [facility] COMPARISON: CT ABDOMEN & PELVIS W CONTRAST, September 20, 2016, 15:39. INDICATIONS : Abdominal pain and nausea today. ORAL CONTRAST: No oral contrast ingested. RADIATION DOSE: 9.98 CTDIvol (mGy) MEDICAL HISTORY : Chronic obstructive pulmonary disease. Hypertension. SURGICAL HISTORY : Appendectomy. Cholecystectomy. Hysterectomy. ENCOUNTER: Initial ACUITY: 1 day PAIN SCALE: 4/10 LOCATION: Bilateral upper quadrant TECHNIQUE: Volumetric scanning of the abdomen and pelvis was performed. Using automated exposure control and ad justment of the mA and/or kV according to patient size, radiation dose was kept as low as reasonably achievable to obtain optimal diagnostic quality images. DICOM format image data is available electro nically for review and comparison. FINDINGS: There is a stable mass within the left lobe of the liver measuring 7.4 x 7.6 cm. There is persistent moderate ureteropelvicaliectasis on the left. There is diffuse thickening of the wall of the sigmoi d colon which raises possibility of colitis, diverticulitis or possible colonic neoplasm. Some ascit es is noted within the abdomen and pelvis. A tiny right pleural effusion is noted. The patient is s tatus post cholecystectomy. Evaluation of solid organs of the abdomen is limited by the lack of intr avenous contrast. The urinary bladder is unremarkable. Degenerative changes are noted involving the lumbar spine. CONCLUSION: 1. Thick-walled sigmoid colon raising possibility of colitis, diverticulitis or possible colonic rafa plasm. Colonoscopy may be helpful for further evaluation if clinically indicated. 2. Persistent moderate ureteropelvicaliectasis on the left. 3. Stable left hepatic lobe mass measuring 7.6 x 7.4 cm. 4. Minimal ascites within the abdomen and pelvis. 5. Tiny right pleural effusion with adjacent compressive atelectasis. German Knutson MD on October 06, 2016 at 11:50 Board Certified Radiologist. This report was verified electronically.
[2016-10-06] MEDS: SODIUM CHLOR 0.9% 1000 ML INJ 1,000 ML IV SCH ×2 (13:53→22:37)
--- NOTE | 2016-10-06 14:26 | HHI.HP ---
HPI Service [facility] Primary Care Physician Unknown Admission Diagnosis SIGMOID DIVERTICULITIS Diagnoses: Chief Complaint: fevers and chills Travel History International Travel<30 Days: No Contact w/Intl Traveler <30 Da: No Traveled to Known Affected Are: No History of Present Illness 80 WF being admitted for sigmoid diverticulitis. Pt was in her USOH until a yesterday evening when her chronic lower abd symptoms began worsening with lower abd pain along with fevers, chills, and generalized weakness. Pt states she woke up at 3 am with fever and chills and weakness and worsening nausea. At that point she had her call evac. Pt states that she received some nausea medication by EMS which provided good relief. At this point in time she states that now her nausea and chills have resolved. CT scan of the ER showing sigmoid colon thickening along with an elevated white count in the 20s and a bandemia of 7%. Vital signs stable, afebrile. Patient was discharged 2 weeks ago with an episode of diverticulitis at that time; however she only took her Levaquin and Flagyl for about 2-3 days (while prescription regimen was for 7 days) due to perceived adverse effects of nausea and decreased appetite. She says that her abdominal discomfort and pain was minimal after is continuing the antibiotics but her loose stools/diarrhea persisted. Has been taking her MiraLAX every day. Her appetite had slightly improved off of the medications but became reduced again in the past few days. On her last admission a CT-guided liver biopsy was attempted but the specimen was insufficient to make a proper diagnosis (malignancy versus benign versus abscess) regarding the detected necrotic tissue. Review of Systems Constitutional: COMPLAINS OF: Fatigue, Fever, Chills, Change in appetite, DENIES: Diaphoretic episodes, Weight gain, Weight loss, Dizziness, Night Sweats Ears, nose, mouth, throat: DENIES: Tinnitus, Hearing loss, Vertigo, Nasal discharge, Oral lesions, Throat pain, Hoarseness, Ear Pain, Running Nose, Epistaxis, Sinus Pain, Toothache, Odynophagia Respiratory: DENIES: Apneas, Cough, Snoring, Wheezing, Hemoptysis, Sputum production, Shortness of breath Cardiovascular: DENIES: Chest pain, Palpitations, Syncope, Dyspnea on Exertion , PND, Lower Extremity Edema, Orthopnea, Claudication Gastrointestinal: COMPLAINS OF: Abdominal pain, Diarrhea, Nausea, DENIES: Black stools, Bloody stools, Constipation, Vomiting, Difficulty Swallowing, Anorexia Genitourinary: COMPLAINS OF: Nocturia, DENIES: Urinary incontinence, Urgency, Hematuria, Dysuria Musculoskeletal: DENIES: Joint pain, Muscle aches, Stiffness, Joint Swelling, Back pain, Neck pain Integumentary: DENIES: Abnormal pigmentation, Pruritus, Rash, Nail changes, Breast masses, Breast skin changes, Nipple discharge Hematologic/lymphatic: DENIES: Bruising, Lymphadenopathy Immunologic/allergic: DENIES: Eczema, Urticaria Neurologic: DENIES: Abnormal gait, Headache, Localized weakness, Paresthesias, Seizures, Speech Problems, Tremor, Poor Balance Psychiatric: DENIES: Anxiety, Confusion, Mood changes, Depression, Hallucinations, Agitation, Suicidal Ideation, Homicidal Ideation, Delusions Past Family Social History Past Medical History Past Medical History Gastritis/reflux Hypertension Diverticulitis Past Surgical History Past Surgical History Gallbladder surgery Appendectomy Total abdominal hysterectomy and bilateral salpingo-oophorectomy CT guided liver bx Reported Medications Reported Meds & Active Scripts Active Ultram (Tramadol HCl) 50 Mg Tab 50 Mg PO Q8H PRN Zofran Liq (Ondansetron HCl) 4 Mg/5 Ml Soln 4 Mg PO Q6H PRN 7 Days Effervescent Potassium Chloride 25 Meq (Potassium Bicarb/Potassium Chloride) 25 Meq Tab 25 Meq PO DAILY Polyethylene Glycol 3350 Powder (Polyethylene Glycol) 17 Gm Pow 17 Gm PO DAILY 30 Days Flintstones Complete (Iron/Minerals/Multivitamins) 60 Mg Tab 1 Tab CHEW DAILY 30 Days Reported Omeprazole 20 Mg Tab 20 Mg PO DAILY Losartan (Losartan Potassium) 25 Mg Tab 25 Mg PO DAILY Allergies: Coded Allergies: Lipitor (Verified Allergy, Severe, MUSCLE PAIN, 09/20/16) Lovastatin (Verified Allergy, Severe, MUSCLE SPASM/PAIN, 09/20/16) Active Ordered Medications Current Medications Sodium Chloride 2 ml 2 ml UNSCH PRN IV FLUSH FLUSH AFTER USING IV ACCESS; Start 10/06/16 at 07:15 Metronidazole (Flagyl 500 Mg Inj) 100 ml @ 100 mls/hr ONCE ONCE IV Last administered on 10/06/16 09:39; Start 10/06/16 at 09:30; Stop 10/06/16 at 10:29 ; Status DC Ondansetron HCl 4 mg 4 mg ONCE ONCE IV PUSH Last administered on 10/06/16 09: 39; Start 10/06/16 at 09:30; Stop 10/06/16 at 09:31; Status DC Levofloxacin/ Dextrose 150 ml @ 100 mls/hr ONCE ONCE IV Last administered on 10/06/16 10:44; Start 10/06/16 at 09:30; Stop 10/06/16 at 10:59; Status DC Sodium Chloride (NS 1000 ml Inj) 1,000 ml @ 100 mls/hr Q10H IV Last administered on 10/06/16 13:53; Start 10/06/16 at 13:00 Sodium Chloride 2 ml 2 ml BID IV FLUSH ; Start 10/06/16 at 21:00 Levofloxacin/ Dextrose 100 ml @ 100 mls/hr Q24H IV ; Start 10/07/16 at 10:00 Metronidazole (Flagyl 500 Mg Inj) 100 ml @ 100 mls/hr Q8H IV ; Start 10/06/16 at 18:00 Ondansetron HCl (Zofran Inj) 4 mg Q6H PRN IV NAUSEA; Start 10/06/16 at 14:15 Enoxaparin Sodium 30 mg 30 mg Q24H SQ Last administered on 10/06/16 15:34; Start 10/06/16 at 15:00 Potassium Chloride (KCl 20 Meq Premix Inj) 100 ml @ 50 mls/hr Q2H IV Last administered on 10/06/16 15:34; Start 10/06/16 at 15:00; Stop 10/06/16 at 18:59 Family History Family History Denies any family history of colon cancer or any form of malignancies. Social History Social History No history of smoking Very occasional wine Physical Exam Vital Signs Vital Signs Date Time Temp Pulse Resp B/P Pulse Ox O2 Delivery O2 Flow Rate FiO2 10/06/16 14:08 80 18 128/58 95 Room Air 10/06/16 09:13 87 18 98/51 95 Room Air 10/06/16 06:19 99.0 95 18 150/65 92 Physical Exam GENERAL: This is a well-nourished, well-developed patient, in no apparent distress. SKIN: No rashes, ecchymoses or lesions. Cool and dry. HEAD: Atraumatic. Normocephalic. No temporal or scalp tenderness. EYES: Pupils equal round and reactive. Extraocular motions intact. No scleral icterus. No injection or drainage. ENT: Nose without bleeding. Uvula midline. Airway patent. NECK: Trachea midline. No JVD or lymphadenopathy. Supple, nontender, no meningeal signs. CARDIOVASCULAR: Regular rate and rhythm without murmurs, gallops, or rubs. RESPIRATORY: Clear to auscultation. Breath sounds equal bilaterally. No wheezes , rales, or rhonchi. GASTROINTESTINAL: Abdomen is soft, mildly distended, no focal masses palpated, minimal diffuse tenderness to palpation with no guarding MUSCULOSKELETAL: Extremities without clubbing, cyanosis, or edema. No joint tenderness, effusion, or edema noted. No calf tenderness. Negative Homans sign bilaterally. NEUROLOGICAL: Awake and alert. Motor and sensory grossly within normal limits. Five out of 5 muscle strength in all muscle groups. Normal speech. Laboratory Laboratory Tests Test 10/06/16 10/06/16 07:20 08:20 White Blood Count 24.6 Red Blood Count 4.41 Hemoglobin 10.4 Hematocrit 32.6 Mean Corpuscular Volume 73.9 Mean Corpuscular Hemoglobin 23.6 Mean Corpuscular Hemoglobin 32.0 Concent Red Cell Distribution Width 23.5 Platelet Count 161 Mean Platelet Volume 10.8 Neutrophils (%) (Auto) 81.3 Lymphocytes (%) (Auto) 3.3 Monocytes (%) (Auto) 15.0 Eosinophils (%) (Auto) 0.1 Basophils (%) (Auto) 0.3 Neutrophils # (Auto) 20.0 Lymphocytes # (Auto) 0.8 Monocytes # (Auto) 3.7 Eosinophils # (Auto) 0.0 Basophils # (Auto) 0.1 CBC Comment AUTO DIFF Differential Total Cells 100 Counted Neutrophils % (Manual) 80 Band Neutrophils % 7 Lymphocytes % 2 Monocytes % 10 Neutrophils # (Manual) 21.6 Metamyelocytes 1 Promyelocytes 0 Differential Comment FINAL DIFF MANUAL Platelet Estimate NORMAL Platelet Morphology Comment NORMAL Prothrombin Time 13.6 Prothromb Time International 1.2 Ratio Activated Partial 25.6 Thromboplast Time Sodium Level 139 Potassium Level 3.1 Chloride Level 103 Carbon Dioxide Level 28.5 Anion Gap 8 Blood Urea Nitrogen 6 Creatinine 0.56 Estimat Glomerular Filtration 104 Rate Random Glucose 129 Lactic Acid Level 1.0 Calcium Level 7.8 Total Bilirubin 0.9 Aspartate Amino Transf 57 (AST/SGOT) Alanine Aminotransferase 17 (ALT/SGPT) Alkaline Phosphatase 292 Total Creatine Kinase 49 Troponin I 0.02 Total Protein 6.2 Albumin 2.3 Lipase 81 Urine Color YELLOW Urine Turbidity HAZY Urine pH 6.5 Urine Specific [place] 1.015 Urine Protein TRACE Urine Glucose (UA) NEG Urine Ketones 40 Urine Occult Blood TRACE Urine Nitrite NEG Urine Bilirubin NEG Urine Urobilinogen 2.0 Urine Leukocyte Esterase LARGE Urine RBC 12 Urine WBC 22 Urine Squamous Epithelial 7 Cells Urine Bacteria RARE Urine Mucus FEW Microscopic Urinalysis Comment CULTURE INDICATED Date/Time Procedure Status Source Growth 10/06/16 08:20 Urine Culture Received Urine Clean Catch Pending Result Diagram: 10/06/1671910/06/16719 Imaging Last 24 hours Impressions Abdomen/Pelvis CT 10/06/16711 Signed Impressions: Service Date/Time: Thursday, October 06, 2016 11:36 - CONCLUSION: 1. Thick-walled sigmoid colon raising possibility of colitis, diverticulitis or possible colonic neoplasm. Colonoscopy may be helpful for further evaluation if clinically indicated. 2. Persistent moderate ureteropelvicaliectasis on the left. 3. Stable left hepatic lobe mass measuring 7.6 x 7.4 cm. 4. Minimal ascites within the abdomen and pelvis. 5. Tiny right pleural effusion with adjacent compressive atelectasis. German Knutson MD Assessment and Plan Problem List: (1) Sigmoid diverticulitis ICD Code: K57.32 Status: Acute (2) Hypokalemia ICD Code: E87.6 Status: Acute (3) Anemia ICD Code: D64.9 Status: Chronic (4) Liver mass, left lobe ICD Code: R16.0 Status: Chronic Assessment and Plan 80 -year-old white female being admitted for sigmoid diverticulitis. Clinically stable upon admission. Abdominal discomfort - sigmoid diverticulitis. Will treat with Levaquin and Flagyl initially, if no significant improvement over the next few hours, will upgrade to broad spectrum beta-lactamase. Clear liquid diet along with IV fluids. Leukocytosis - likely secondary to sigmoid diverticulitis, monitor and manage as above Hypokalemia - possibly due to decreased by mouth intake. Will supplement accordingly. Loose stools/diarrhea - will obtain C. difficile PCR given that the patient has been on antibiotics substantially in the recent past. Hepatic lobe mass - surgery consulted as they were involved last time for this issue and the patient was due for outpatient follow-up on this time. Hepatic markers obtained by GI last time were elevated and concerning for malignancy. Will defer GI consult (originally GI had plans for colonoscopy as mentioned at last admission) pending CRS recs. Anemia - likely anemia of chronic disease and/or iron deficiency, monitor Code Status DNI Discussed Condition With patient Physician Certification 2 Midnight Certification Type: Admission for Inpatient Services Order for Inpatient Services The services are ordered in accordance with Medicare regulations or non- Medicare payer requirements, as applicable. In the case of services not specified as inpatient-only, they are appropriately provided as inpatient services in accordance with the 2-midnight benchmark. Estimated LOS (days): 3 3 days is the estimated time the patient will need to remain in the hospital, assuming treatment plan goals are met and no additional complications. Post-Hospital Plan: Home Danny Loyola MD Oct 06, 2016 14:26 Eunice Winslow MD Oct 06, 2016 16:05
[2016-10-06] MEDS: POTASSIUM CHLOR 20 MEQ PREMIX 100 ML IV SCH ×2 (15:34→22:35)
[2016-10-06] MEDS: ENOXAPARIN SODIUM 30 MG/0.3 ML SYRINGE SQ SCH (15:34)
[2016-10-06] MEDS ORDERED: SODIUM CHLORID 0.9% 500 ML INJ 500 ML IV ONE (16:45)
[2016-10-06] MEDS: metroNIDAZOLE 500 MG INJ 100 ML IV SCH (19:40)
--- NOTE | 2016-10-06 20:18 | EKG ---
Date Performed: 10/06/2016 Time Performed: 09:19:56 PTAGE: 80 years EKG: Sinus rhythm NONSPECIFIC ST & T-WAVE ABNORMALITY BORDERLINE ECG PREVIOUS TRACING : 09/20/2016 12.58 Compared to prior tracing no significant change DOCTOR: Lourdes Henderson Interpretating Date/Time 10/06/2016 20:17:32
[2016-10-06] MEDS: SODIUM CHLORIDE 0.9% FLUSH 10 ML FLUSH IV FLUSH SCH (22:35)
[2016-10-06] MEDS: MAGNESIUM CITRATE SOLN 300 ML BTL PO SCH (22:37)
[2016-10-06] MEDS: D5-LR + KCL 20 MEQ INJ 1,000 ML IV SCH (22:43)
[2016-10-07] VITALS (13 sets, daily range): BP systolic 142–175; BP diastolic 65–78; PULSE 70–85; RESP 16–20; TEMP 97.2–97.9; O2SAT 94–96
[2016-10-07 02:06] LABS: C. DIFF EPI 027 PRESUMPTIVE NEGATIVE (NEGATIVE); C. DIFF TOXIN PCR NEGATIVE (NEGATIVE)
[2016-10-07] MEDS: metroNIDAZOLE 500 MG INJ 100 ML IV SCH ×3 (02:16→17:23)
[2016-10-07] MEDS: D5-LR + KCL 20 MEQ INJ 1,000 ML IV SCH ×3 (02:45→21:22)
[2016-10-07] MEDS ORDERED: LOSARTAN 50 MG TAB PO ONE (05:00)
[2016-10-07] MEDS: ACETAMINOPHEN 325 MG TAB PO PRN (05:06)
[2016-10-07 07:32] LABS: AUTOMATED NEUTROPHIL # 7.8 TH/MM3 (1.8-7.7); BASOPHIL % 0.3 % (0.0-2.0); EOSINOPHIL % 0.2 % (0.0-4.0); HEMATOCRIT 31.1 % (35.0-46.0); LYMPH % 8.3 % (9.0-44.0); LYMPHOCYTE # 0.9 TH/MM3 (1.0-4.8); MEAN CELL VOLUME 75.1 FL (80.0-100.0); MEAN CORPUSCULAR HEMOGLOBIN 23.9 PG (27.0-34.0); MEAN CORPUSCULAR HGB CONC 31.8 % (32.0-36.0); MONO % 19.9 % (0.0-8.0); NEUT % 71.3 % (16.0-70.0); PLATELET COUNT 125 TH/MM3 (150-450); RED BLOOD COUNT 4.14 MIL/MM3 (4.00-5.30); RED CELL DISTRIBUTION WIDTH 23.6 % (11.6-17.2)
[2016-10-07 07:36] LABS: HEMO FLAGS AUTO DIFF
[2016-10-07 07:39] LABS: ALT (GPT) 14 U/L (10-53); ANION GAP 8 MEQ/L (5-15); AST (GOT) 41 U/L (15-37); BICARBONATE 28.4 MEQ/L (21.0-32.0); BLOOD UREA NITROGEN 5 MG/DL (7-18); CHLORIDE 106 MEQ/L (98-107); GLOMERULAR FILTRATION RATE 109 ML/MIN (>89); POTASSIUM 3.1 MEQ/L (3.5-5.1); SODIUM (NA) 142 MEQ/L (136-145)
[2016-10-07 07:41] LABS: ALKALINE PHOSPHATASE 270 U/L (45-117); TOTAL BILIRUBIN ADULT 0.5 MG/DL (0.2-1.0)
[2016-10-07] MEDS ORDERED: LABETALOL HCL 100 MG/20 ML VIAL IV PUSH PRN (08:00)
[2016-10-07 08:58] LABS: PLATELET ESTIMATE SMEAR LOW (NORMAL); PLATELET MORPHOLOGY NORMAL (NORMAL); SCAN/DIFF AUTO DIFF CONFIRMED
[2016-10-07] MEDS: SODIUM CHLORIDE 0.9% FLUSH 10 ML FLUSH IV FLUSH SCH ×2 (09:00→21:23)
[2016-10-07] MEDS: MAGNESIUM CITRATE SOLN 300 ML BTL PO SCH ×2 (09:00→21:22)
[2016-10-07] MEDS: SODIUM CHLOR 0.9% 1000 ML INJ 1,000 ML IV SCH ×2 (09:00→19:00)
[2016-10-07] MEDS: POTASSIUM CHLORIDE 25 MEQ EFFERVESCENT TAB PO SCH (09:28)
[2016-10-07] MEDS: PANTOPRAZOLE SOD 20 MG DELAYED RELEASE TAB PO SCH (09:29)
[2016-10-07] MEDS: MULTIVITAMINS/IRON/MINERALS CHEWABLE TAB CHEW SCH (09:29)
[2016-10-07] MEDS: LOSARTAN 50 MG TAB PO SCH (09:29)
[2016-10-07] MEDS: ONDANSETRON HCL 4 MG/2 ML VIAL IV PRN (10:26)
[2016-10-07] MEDS: LEVOFLOXACIN 500 MG PREMIX INJ 100 ML IV SCH (10:27)
--- NOTE | 2016-10-07 11:37 | HHI.PR ---
Subjective Remarks f/u on abd pain, diarrhea, and diverticulitis Pt says overall she fees much better compared to yesterday. afebrile o/n. BP noted to be elevated, pt restarted on home losartan. says her nausea is better but still persistent. says that the taste of "water" makes her nasueated. when asked how long she's had this aversive perception of whater, she is unable to directly answer the question despite multiple attempts. CRS planning colonoscopy sophie. Concern for possible malignant mass. discussed with pt that we will have more answers once further tests/procedures are done. K still low despite replacement. Objective Vital Signs Date Time Temp Pulse Resp B/P Pulse Ox O2 Delivery O2 Flow Rate FiO2 10/07/16 08:12 73 10/07/16 08:00 97.4 72 16 149/69 95 10/07/16 06:06 16 10/07/16 04:05 84 10/07/16 04:00 97.8 78 17 175/72 95 10/07/16 00:15 82 10/07/16 00:00 97.9 84 17 146/65 96 10/06/16 20:24 81 10/06/16 20:00 88 10/06/16 20:00 98.0 79 17 176/71 97 10/06/16 17:30 98.9 103 16 156/67 95 10/06/16 17:30 98.9 103 16 156/67 95 10/06/16 16:53 86 16 118/68 95 10/06/16 14:08 80 18 128/58 95 Room Air Result Diagram: 10/07/16 0623 10/07/16 0623 Imaging Last Impressions Abdomen/Pelvis CT 10/06/16 0712 Signed Impressions: Service Date/Time: Thursday, October 06, 2016 11:36 - CONCLUSION: 1. Thick-walled sigmoid colon raising possibility of colitis, diverticulitis or possible colonic neoplasm. Colonoscopy may be helpful for further evaluation if clinically indicated. 2. Persistent moderate ureteropelvicaliectasis on the left. 3. Stable left hepatic lobe mass measuring 7.6 x 7.4 cm. 4. Minimal ascites within the abdomen and pelvis. 5. Tiny right pleural effusion with adjacent compressive atelectasis. German Knutson MD Other Results Laboratory Tests Test 10/07/16 06:23 White Blood Count 11.0 TH/MM3 (4.0-11.0) Red Blood Count 4.14 MIL/MM3 (4.00-5.30) Hemoglobin 9.9 GM/DL (11.6-15.3) Hematocrit 31.1 % (35.0-46.0) Mean Corpuscular Volume 75.1 FL (80.0-100.0) Mean Corpuscular Hemoglobin 23.9 PG (27.0-34.0) Mean Corpuscular Hemoglobin 31.8 % Concent (32.0-36.0) Red Cell Distribution Width 23.6 % (11.6-17.2) Platelet Count 125 TH/MM3 (150-450) Mean Platelet Volume 9.8 FL (7.0-11.0) Neutrophils (%) (Auto) 71.3 % (16.0-70.0) Lymphocytes (%) (Auto) 8.3 % (9.0-44.0) Monocytes (%) (Auto) 19.9 % (0.0-8.0) Eosinophils (%) (Auto) 0.2 % (0.0-4.0) Basophils (%) (Auto) 0.3 % (0.0-2.0) Neutrophils # (Auto) 7.8 TH/MM3 (1.8-7.7) Lymphocytes # (Auto) 0.9 TH/MM3 (1.0-4.8) Monocytes # (Auto) 2.2 TH/MM3 (0-0.9) Eosinophils # (Auto) 0.0 TH/MM3 (0-0.4) Basophils # (Auto) 0.0 TH/MM3 (0-0.2) CBC Comment AUTO DIFF Differential Comment AUTO DIFF CONFIRMED Platelet Estimate LOW (NORMAL) Platelet Morphology Comment NORMAL (NORMAL) Sodium Level 142 MEQ/L (136-145) Potassium Level 3.1 MEQ/L (3.5-5.1) Chloride Level 106 MEQ/L (98-107) Carbon Dioxide Level 28.4 MEQ/L (21.0-32.0) Anion Gap 8 MEQ/L (5-15) Blood Urea Nitrogen 5 MG/DL (7-18) Creatinine 0.54 MG/DL (0.50-1.00) Estimat Glomerular Filtration 109 ML/MIN Rate (>89) Random Glucose 134 MG/DL (74-106) Calcium Level 8.2 MG/DL (8.5-10.1) Magnesium Level 1.6 MG/DL (1.5-2.5) Total Bilirubin 0.5 MG/DL (0.2-1.0) Aspartate Amino Transf 41 U/L (15-37) (AST/SGOT) Alanine Aminotransferase 14 U/L (10-53) (ALT/SGPT) Alkaline Phosphatase 270 U/L (45-117) Total Protein 5.9 GM/DL (6.4-8.2) Albumin 2.2 GM/DL (3.4-5.0) Objective Remarks exam V/S: reviewed, hypertensive, normal pulse, afebrile GENERAL: This is a well-nourished, well-developed patient, in no apparent distress. HEAD: Atraumatic. Normocephalic. No temporal or scalp tenderness. CARDIOVASCULAR: Regular rate and rhythm without murmurs, gallops, or rubs. RESPIRATORY: Clear to auscultation. Breath sounds equal bilaterally. No wheezes , rales, or rhonchi. GASTROINTESTINAL: Abdomen is soft, mildly distended, no focal masses palpated, minimal diffuse tenderness to palpation with no guarding MUSCULOSKELETAL: Extremities without clubbing, cyanosis, or edema. No joint tenderness, effusion, or edema noted. No calf tenderness. Negative Homans sign bilaterally. NEUROLOGICAL: Awake and alert. A/P Problem List: (1) Sigmoid diverticulitis ICD Code: K57.32 (2) Hypokalemia ICD Code: E87.6 (3) Anemia ICD Code: D64.9 (4) Liver mass, left lobe ICD Code: R16.0 Assessment and Plan 80 -year-old white female being admitted for sigmoid diverticulitis. Clinically stable upon admission. Abdominal discomfort - sigmoid diverticulitis. improving clinically. white ct improved. Levaquin and Flagyl Clear liquid diet along with IV fluids. c.diff negative. CRS planned for sophie. will reduce IVF rate given pt is taking in fluids. Leukocytosis - near resolution Hypokalemia - possibly due to decreased by mouth intake. Will supplement accordingly. Loose stools/diarrhea - c. diff neg. will monitor Hepatic lobe mass - spoke with CRS yesterday, plan for colonoscopy sophie. Anemia - likely anemia of chronic disease and/or iron deficiency, monitor Danny Loyola MD Oct 07, 2016 11:36
[2016-10-07] MEDS: ENOXAPARIN SODIUM 30 MG/0.3 ML SYRINGE SQ SCH (15:49)
--- NOTE | 2016-10-07 15:51 | MB ---
cc: LAURA DEL CASTILLO MD DATE OF CONSULTATION: 10/06/2016 REASON FOR CONSULTATION: This is an 80-year-old being evaluated for a pelvic mass and a liver mass. HISTORY OF PRESENT ILLNESS: She is admitted to hospital 2 weeks ago and was treated with antibiotics and underwent liver biopsy and necrotic tissue was obtained and no definitive diagnosis. She was discharged for further outpatient workup. She was seen by Dr. Deleon for colorectal surgery and a sigmoidoscopy was planned. She returns hospital today with an episode of fever, chills, nausea. She has been having diarrhea for 2 weeks and has been using MiraLax during that time. PAST MEDICAL HISTORY: Past medical history includes a previous cholecystectomy, appendectomy, hysterectomy with both ovaries removed in addition. PHYSICAL EXAMINATION: IN GENERAL/ VITAL SIGNS: On exam she is afebrile. Normal vital signs. He is alert without distress. SKIN: Skin is warm and dry. LUNGS: Respirations are normal. ABDOMEN: Her abdomen is soft. There is some mild left lower quadrant tenderness. RECTUM/VAGINAL EXAM: On rectal and vaginal exams there is a mass within the pelvis which is tender. LABORATORY Show white blood cell count 24,000, platelets are normal. Hemoglobin is 10. Electrolytes are normal. She does have elevated alk and phosphatase. RADIOLOGIC: CT scanning shows pelvic and liver masses as previously described with a left hydronephrosis. There is no obstruction of the colon or small bowel. ASSESSMENT Pelvic mass and liver mass, possible malignancy. PLAN The patient is admitted to the hospital for antibiotics, this should be on administered to her slowly over the next day and plan a sigmoidoscopy on Tuesday. MD BRAXTON Estes/brant /4:45 PM /3:40 PM
[2016-10-07] MEDS: POTASSIUM CHLOR 20 MEQ PREMIX 100 ML IV SCH ×2 (18:59→20:59)
[2016-10-08] VITALS (12 sets, daily range): BP systolic 139–188; BP diastolic 67–88; PULSE 74–97; RESP 16–20; TEMP 96.7–97.8; O2SAT 95–98
[2016-10-08] MEDS: metroNIDAZOLE 500 MG INJ 100 ML IV SCH ×4 (03:48→17:25)
[2016-10-08] MEDS: ENALAPRILAT 1.25 MG/ML VIAL IV PUSH PRN ×2 (04:58→22:37)
[2016-10-08] MEDS: SODIUM CHLOR 0.9% 1000 ML INJ 1,000 ML IV SCH ×3 (04:58→23:50)
[2016-10-08] MEDS ORDERED: POTASSIUM CHLOR 20 MEQ PREMIX 100 ML IV SCH (08:00)
[2016-10-08] MEDS: POTASSIUM CHLORIDE 25 MEQ EFFERVESCENT TAB PO SCH (08:04)
[2016-10-08] MEDS: SODIUM CHLORIDE 0.9% FLUSH 10 ML FLUSH IV FLUSH SCH ×2 (08:26→21:00)
[2016-10-08] MEDS: LOSARTAN 50 MG TAB PO SCH (08:26)
[2016-10-08] MEDS: PANTOPRAZOLE SOD 20 MG DELAYED RELEASE TAB PO SCH (08:26)
[2016-10-08] MEDS: MAGNESIUM CITRATE SOLN 300 ML BTL PO SCH ×2 (08:26→20:45)
[2016-10-08] MEDS ORDERED: SOD PHOSPHATE/SOD BIPHOSPHATE (ADULT) ENEMA 133ML RECTAL ONE ×2 (10:00→18:00)
[2016-10-08] MEDS: LEVOFLOXACIN 500 MG PREMIX INJ 100 ML IV SCH (10:01)
--- NOTE | 2016-10-08 12:09 | HHI.PR ---
Subjective Remarks f/u on abd pain, diarrhea, and diverticulitis D/w nursing, pt anxious over possible cancer dx. Pt says overall she fees much better compared to 2 days ago. afebrile o/n. Says that her nausea seems to be more located in her "throat" when eating something at its worst. Objective Vital Signs Date Time Temp Pulse Resp B/P Pulse Ox O2 Delivery O2 Flow Rate FiO2 10/08/16 08:00 96.7 75 18 173/75 95 10/08/16 06:24 83 18 168/77 98 10/08/16 04:00 97.6 84 18 180/88 97 10/08/16 03:56 79 10/08/16 00:00 97.8 83 20 168/74 96 10/07/16 20:20 85 10/07/16 20:00 97.4 76 20 165/78 95 10/07/16 16:03 85 10/07/16 16:00 97.2 70 18 143/70 95 10/07/16 12:17 75 10/07/16 12:00 97.7 76 18 142/73 94 I/O 10/07/16 10/07/16 10/07/16 10/08/16 10/08/16 10/08/16 07:00 15:00 23:00 07:00 15:00 23:00 Intake Total 960 ml 1524 ml 960 ml 1616 ml Output Total 300 ml 1000 ml Balance 960 ml 1224 ml -40 ml 1616 ml Intake Oral 960 ml 240 ml 960 ml IV Total 1284 ml 1616 ml Output Urine Total 300 ml 1000 ml # Voids 3 5 3 1 # Bowel Movements 3 4 3 3 3 Result Diagram: 10/07/16 0623 10/07/1623 Other Results Last Impressions Abdomen/Pelvis CT 10/06/1612 Signed Impressions: Service Date/Time: Thursday, October 06, 2016 11:36 - CONCLUSION: 1. Thick-walled sigmoid colon raising possibility of colitis, diverticulitis or possible colonic neoplasm. Colonoscopy may be helpful for further evaluation if clinically indicated. 2. Persistent moderate ureteropelvicaliectasis on the left. 3. Stable left hepatic lobe mass measuring 7.6 x 7.4 cm. 4. Minimal ascites within the abdomen and pelvis. 5. Tiny right pleural effusion with adjacent compressive atelectasis. German Knutson MD Objective Remarks exam V/S: reviewed, hypertensive, normal pulse, afebrile GENERAL: This is a well-nourished, well-developed patient, in no apparent distress. CARDIOVASCULAR: Regular rate and rhythm without murmurs, gallops, or rubs. RESPIRATORY: Clear to auscultation. Breath sounds equal bilaterally. No wheezes , rales, or rhonchi. GASTROINTESTINAL: Abdomen is soft, mildly distended, no focal masses palpated, MUSCULOSKELETAL: Extremities without clubbing, cyanosis, or edema. No joint tenderness, effusion, or edema noted Medications and IVs Inpatient Medications Acetaminophen (Tylenol) 650 mg Q4H PRN PO pain, fever >101 Last administered on 10/07/16 05:06; Start 10/07/16 at 04:45 Enalaprilat 1.25 mg 1.25 mg Q6H PRN IV PUSH sbp > 160 or dbp> 100 Last administered on 10/08/16 04:58; Start 10/07/16 at 11:45 Enoxaparin Sodium (Lovenox Inj) 30 mg Q24H SQ Last administered on 10/07/16 15 :49; Start 10/06/16 at 15:00 Iron/Minerals/ Multivitamins (Flintstones Complete) 1 tab DAILY CHEW Last administered on 10/07/16 09:29; Start 10/07/16 at 09:00 Labetalol HCl (Trandate Inj) 10 mg Q4HR PRN IV PUSH sbp > 160 or dbp> 100; Start 10/07/16 at 08:00; Stop 10/07/16 at 11:41; Status DC Levofloxacin/ Dextrose 100 ml @ 100 mls/hr Q24H IV Last administered on 10:01; Start 10/07/16 at 10:00 Losartan Potassium (Cozaar) 50 mg DAILY PO Last administered on 10/08/16 08:26 ; Start 10/07/16 at 09:00 Magnesium Citrate 150 ml 150 ml BID PO Last administered on 10/08/16 08:26; Start 10/06/16 at 21:00 Metronidazole (Flagyl 500 Mg Inj) 100 ml @ 100 mls/hr Q8H IV Last administered on 10/08/16 11:12; Start 10/06/16 at 18:00 Ondansetron HCl (Zofran Inj) 4 mg Q6H PRN IV NAUSEA Last administered on 10:26; Start 10/06/16 at 14:15 Ondansetron HCl 4 mg 4 mg ONCE ONCE IV PUSH Last administered on 10/06/16 09: 39; Start 10/06/16 at 09:30; Stop 10/06/16 at 09:31; Status DC Pantoprazole Sodium (Protonix) 20 mg DAILY PO Last administered on 10/08/16 08 :26; Start 10/07/16 at 09:00 Potassium Bicarb/ Potassium Chloride (K-Lyte Cl Eff) 25 meq DAILY PO Last administered on 10/07/16 09:28; Start 10/07/16 at 09:00 Potassium Chloride (KCl 20 Meq Premix Inj) 100 ml @ 50 mls/hr Q2H IV Last administered on 10/08/16 08:26; Start 10/08/16 at 08:00; Stop 10/08/16 at 11:59 Potassium Cl/ Dextrose/Lact Ringer's 1,000 ml @ 100 mls/hr Q10H IV Last administered on 10/07/16 21:22; Start 10/06/16 at 16:45 Sodium Biphosphate/ Sodium Phosphate (Fleets Enema (Adult)) 133 ml ONCE ONCE RECTAL Last administered on 10/08/16 11:12; Start 10/08/16 at 10:00; Stop at 10:01; Status DC Sodium Chloride (NS 1000 ml Inj) 1,000 ml @ 100 mls/hr Q10H IV Last administered on 10/06/16 22:37; Start 10/06/16 at 13:00 Sodium Chloride (NS 500 ml Inj) 500 ml @ 500 mls/hr ONCE ONCE IV ; Start 10/06 at 16:45; Stop 10/06/16 at 17:44; Status DC Sodium Chloride (NS Flush) 2 ml UNSCH PRN IV FLUSH FLUSH AFTER USING IV ACCESS ; Start 10/06/16 at 07:15 Sodium Chloride 2 ml 2 ml BID IV FLUSH Last administered on 10/07/16 21:23; Start 10/06/16 at 21:00 A/P Problem List: (1) Sigmoid diverticulitis ICD Code: K57.32 (2) Hypokalemia ICD Code: E87.6 (3) Anemia ICD Code: D64.9 (4) Liver mass, left lobe ICD Code: R16.0 Assessment and Plan 80 -year-old white female being admitted for sigmoid diverticulitis. Abdominal discomfort - sigmoid diverticulitis. further improving clinically. continue Levaquin and Flagyl Clear liquid diet along with IV fluids. c.diff negative. CRS planned sigmoidoscopy later today. HTN - restarting home losartan, adding on vasotec and hydralazine prn hi BP Hypokalemia - possibly due to decreased by mouth intake. Will supplement accordingly. Loose stools/diarrhea - c. diff neg. will monitor Hepatic lobe mass - sigmoidoscopy today, possible cancer. Anemia - likely anemia of chronic disease and/or iron deficiency, monitor Danny Loyola MD Oct 08, 2016 12:09
[2016-10-08] MEDS ORDERED: ENALAPRILAT 1.25 MG/ML VIAL IV PUSH PRN (12:15)
[2016-10-08] MEDS ORDERED: PROPOFOL 200 MG/20 ML AMP IV ONE (13:35)
--- NOTE | 2016-10-08 13:44 | GIPROC ---
[facility] [address] [facility]. [facility], [address] FLEXIBLE SIGMOIDOSCOPY PROCEDURE REPORT EXAM DATE: 10/08/2016 PATIENT NAME: Molly Qiu MR #: [id number] BIRTHDATE: 1935 ORDER #: [id number] ATTENDING: Fabiola Deleon MD PROCESS COACH: Jacoby Vargas and Heather Paz STATUS: inpatient INDICATIONS: The patient is a 80 yr old female here for a flexible sigmoidoscopy due to Abnormal CT, Anemia, Abdominal pain. PROCEDURE PERFORMED: Flexible sigmoidoscopy with biopsy MEDICATIONS: None and Per Anesthesia. ESTIMATED BLOOD LOSS: None CONSENT: The patient understands the risks and benefits of the procedure and understands that these risks include, but are not limited to: sedation, allergic reaction, infection, perforation and/or bleeding. Alternative means of evaluation and treatment include, among others: physical exam, x-rays, and/or surgical intervention. The patient elects to proceed with this endoscopic procedure. medical equipment was checked for proper function. Hand hygiene and appropriate measures for infection prevention was taken. After the risks, benefits and alternatives of the procedure were thoroughly explained, Informed consent was verified, confirmed and timeout was successfully executed by the treatment team. A digital rectal exam was performed and was negative The Pentax [id number] endoscope was introduced through the anus and advanced to 35-40 cm . The prep was poor . The instrument was then slowly withdrawn as the colon was fully examined. A near obstructing mass was localized at 30-35 cm. Pictures and biopsies were obtained. I was able to pass the lesion, but the large stool load proximally prevented significant visualization. The scope was then completely withdrawn from the patient and the procedure terminated. ADVERSE EVENTS: There were no complications. IMPRESSIONS: Sigmoid colon cancer RECOMMENDATIONS: Consultation with Dr. Chaudhari, await biopsies RECALL: TBD Fabiola Deleon MD eSigned: Fabiola Deleon MD 10/08/2016 1:44 PM cc: Dr. Araujo
[2016-10-08] MEDS: ENOXAPARIN SODIUM 30 MG/0.3 ML SYRINGE SQ SCH (14:09)
[2016-10-08] MEDS: ACETAMINOPHEN 325 MG TAB PO PRN (14:36)
[2016-10-08] MEDS: MULTIVITAMINS/IRON/MINERALS CHEWABLE TAB CHEW SCH (14:36)
--- NOTE | 2016-10-08 19:14 | MB ---
cc: CHIQUITA VILLARREAL,KIRBY ARIZA M.D. DATE OF CONSULTATION: 10/08/2016. REASON FOR CONSULTATION: Metastatic colon cancer to the liver. PATIENT PROFILE: The patient is an 80-year white female. She has been to the same individual for 52 years. She was born in [place], [place]. She has lived in [place] since 2003. She has two children, both sons, one lives in [place] and the other in [place]. She lives in [facility]. She stopped smoking 30 years ago and had previously smoked a pack of cigarettes per day for 20 years. Ethanol consists of one or two drinks per month. She is retired. 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 She does part-time work at the [employer] in [employer] [place]. HISTORY OF PRESENT ILLNESS The patient is an 80-year-old female. She was fairly well until about four weeks ago when she developed abdominal pain, cramps and diarrhea with a 20-pound weight loss. She was hospitalized at [facility] on 09/20/2016. She was felt initially to have diverticulitis. She underwent a CT scan of the abdomen and pelvis on 09/20 2016 and had a left hepatic lobe low attenuating mass thought to represent either necrotic malignancy or abscess. She was treated with antibiotics. She underwent two needle biopsies of the liver, the first on September, which was nondiagnostic as no tissue was identified in the container, and then a second biopsy on 09/24/2016 showing predominantly necrotic adenocarcinoma. She was treated with antibiotics and now is readmitted for further evaluation because of increasing abdominal pain and diarrhea. She underwent sigmoidoscopy today 10/08/[address] Kirby Deleon, who is a colorectal surgeon. She was found to have a near obstructing mass at 30 to 35 cm. Pictures and biopsies were obtained. The patient's major problems are abdominal pain, diarrhea and cramps. She is afraid to eat because of the pain. LABORATORY STUDIES: Hemoglobin 9.9, hematocrit 31, white count 11,000, platelets 125,000. The MCV is 75. Lytes, BUN and creatinine notable for potassium of 3.1, AST is 41, ALT to 14 and alkaline phosphatase is 270. The patient had CEA of 49 on 09/20 2016. PAST SURGICAL HISTORY: 1. Total abdominal hysterectomy bilateral salpingo-oophorectomy age 40. 2. Cholecystectomy thirty years ago. 3. Carpal tunnel syndrome repair. PAST MEDICAL HISTORY: 1. Hypertension. 2. "Borderline diabetes". 3. The patient states that she recently had an EKG and echocardiogram by Dr. Gloria and was told that she was fine. MEDICATIONS PRIOR TO ADMISSION: 1. Losartan 25 milligrams p.o. daily. 2. Omeprazole 20 milligrams a day. 3. Ondansetron PRN. 4. Potassium. 5. Tramadol. ALLERGIES: 1. LIPITOR. 2. LOVASTATIN. FAMILY HISTORY: The patient is adopted. There is no known history of colon cancer. REVIEW OF SYSTEMS: Vision is good. She has reading glasses. Hearing is slightly diminished. She has no problems with swallowing. No chest pain, palpitations or shortness of breath or cough. GI: Notable for abdominal pain, diarrhea, cramps and 20 pound weight loss. : No dysuria, frequency. Musculoskeletal: No bone pain. Neurologic: No weakness. No skin problems. Psychiatric - no depression. PHYSICAL EXAMINATION: GENERAL: Physical exam reveals a well-appearing female. She is mildly obese. VITAL SIGNS: Blood pressure is 160/70, respiratory rate 18, pulse 80, afebrile. O2 sat 97%. HEAD, EYES, EARS, NOSE, THROAT: Head is normocephalic. The sclerae and conjunctivae are normal. Oropharynx unremarkable except for dentures. LYMPHATIC: There is no cervical, supraclavicular, axillary or inguinal adenopathy. BREASTS: Without masses. HEART: Regular rhythm. LUNGS: Clear without wheezes, rales or rhonchi. ABDOMEN: Abdomen soft. No hepatosplenomegaly. There is slight fullness and tenderness in the suprapubic area. EXTREMITIES: Without edema or swelling. MUSCULOSKELETAL: No bone pain. NEUROLOGIC: No weakness. Cognition and affect normal. SKIN: Normal. ASSESSMENT: The patient is an 80-year-old female. Her history is consistent with an adenocarcinoma of the sigmoid colon with a large single metastatic lesion to the left lobe of the liver measuring 7.2 cm. Her underlying health appears to be excellent. PLAN: I have discussed the case with Dr. Kirby Deleon. This woman will require surgery. She has a bowel obstruction and she cannot eat without having pain and diarrhea. Ideally the tumor can be removed and she can have an reanastomosis at the time of surgery.. The second issue is the lesion in the liver. At the present time it appears that she has one single dominant lesion in the left lobe of the liver. Ideally this should be removed and if possible at the time of surgery for the sigmoid lesion. PLAN: I have contacted Dr. Villarreal, who is an oncologic surgeon, and reviewed with him the case. He will see the patient tomorrow and hopefully the patient will be able to have a surgery which will allow for removal of the primary tumor with reanastomosis of the bowel and removal of the single metastatic lesion in the liver. One can entertain chemotherapy later, but it must be remembered that she is 80 years of age and she is not going to tolerate prolonged aggressive chemotherapy. I believe she is iron deficient. I have ordered iron studies. MD ARVIND Alvarez/JOHANNE /6:33 PM /6:55 PM MTDPing
[2016-10-08] MEDS: POLYETHYLENE GLYCOL 17 GM PKG PO SCH (20:46)
[2016-10-09] VITALS (7 sets, daily range): BP systolic 136–185; BP diastolic 67–76; PULSE 77–86; RESP 16–20; TEMP 97.7–98.3; O2SAT 95–98
[2016-10-09] MEDS: metroNIDAZOLE 500 MG INJ 100 ML IV SCH ×3 (03:52→17:34)
[2016-10-09] MEDS: D5-LR + KCL 20 MEQ INJ 1,000 ML IV SCH ×3 (03:52→17:37)
[2016-10-09 04:21] LABS: BICARBONATE 29.3 MEQ/L (21.0-32.0); POTASSIUM 3.3 MEQ/L (3.5-5.1)
[2016-10-09 04:22] LABS: ALT (GPT) 11 U/L (10-53); ANION GAP 7 MEQ/L (5-15); AST (GOT) 33 U/L (15-37); BICARBONATE 28.1 MEQ/L (21.0-32.0); BLOOD UREA NITROGEN 4 MG/DL (7-18); CHLORIDE 108 MEQ/L (98-107); GLOMERULAR FILTRATION RATE 119 ML/MIN (>89); POTASSIUM 3.3 MEQ/L (3.5-5.1); SODIUM (NA) 143 MEQ/L (136-145)
[2016-10-09 04:24] LABS: ALKALINE PHOSPHATASE 279 U/L (45-117); FERRITIN 338 NG/ML (8-252); TOTAL BILIRUBIN ADULT 0.5 MG/DL (0.2-1.0); TRANSFERRIN IRON PROFILE 159 MG/DL (200-360)
[2016-10-09] MEDS: SODIUM CHLORIDE 0.9% FLUSH 10 ML FLUSH IV FLUSH SCH ×2 (08:37→21:26)
[2016-10-09] MEDS: LOSARTAN 25 MG TAB PO SCH (08:37)
[2016-10-09] MEDS: MAGNESIUM CITRATE SOLN 300 ML BTL PO SCH ×2 (09:00→21:00)
[2016-10-09] MEDS: MULTIVITAMINS/IRON/MINERALS CHEWABLE TAB CHEW SCH (09:00)
[2016-10-09] MEDS ORDERED: IRON SUCROSE INJ 200 MG in SODIUM CHLORIDE 0.9% INJ 100 ML IV ONE (09:00)
[2016-10-09] MEDS: PANTOPRAZOLE SOD 20 MG DELAYED RELEASE TAB PO SCH (09:00)
[2016-10-09] MEDS: POTASSIUM CHLORIDE 25 MEQ EFFERVESCENT TAB PO SCH (09:00)
[2016-10-09] MEDS: POLYETHYLENE GLYCOL 17 GM PKG PO SCH ×2 (09:00→21:00)
[2016-10-09] MEDS: FERROUS SULFATE 325 MG (65 MG ELEMENTAL IRON) TAB PO SCH ×2 (09:00→21:00)
[2016-10-09] MEDS: ASCORBIC ACID 500 MG TAB PO SCH ×2 (09:00→21:00)
--- NOTE | 2016-10-09 10:11 | HHI.PR ---
Subjective Remarks f/u on diverticulitis and colon cancer D/w nursing, no acute incidents reported overnight. patient says her nausea is better today, is hungry as she is nothing by mouth for possible surgery today. Objective Vital Signs Date Time Temp Pulse Resp B/P Pulse Ox O2 Delivery O2 Flow Rate FiO2 10/09/16 04:00 98.1 86 16 158/69 96 10/09/16 00:07 82 10/09/16 00:00 97.9 77 16 149/69 98 10/08/16 23:00 188/77 10/08/16 20:32 97 10/08/16 20:00 96.7 74 16 139/67 97 10/08/16 16:00 97.0 87 18 162/77 97 10/08/16 14:30 97.2 77 18 165/82 97 10/08/16 13:59 76 18 161/80 96 10/08/16 13:47 98.0 84 18 140/69 99 10/08/16 12:07 78 I/O 10/08/16 10/08/16 10/08/16 10/09/16 10/09/16 10/09/16 06:59 14:59 22:59 06:59 14:59 22:59 Intake Total 960 ml 2116 ml 480 ml 480 ml Output Total 1000 ml 1150 ml 450 ml Balance -40 ml 2116 ml -670 ml 30 ml Intake Oral 960 ml 0 ml 480 ml 480 ml IV Total 2116 ml Output Urine Total 1000 ml 1150 ml 450 ml # Voids 2 1 # Bowel Movements 3 5 4 1 Result Diagram: 10/07/16 0623 10/09/16 0344 Other Results Laboratory Tests Test 10/09/16 03:44 Sodium Level 144 MEQ/L (136-145) Potassium Level 3.3 MEQ/L (3.5-5.1) Chloride Level 108 MEQ/L (98-107) Carbon Dioxide Level 29.3 MEQ/L (21.0-32.0) Anion Gap 7 MEQ/L (5-15) Blood Urea Nitrogen 4 MG/DL (7-18) Creatinine 0.51 MG/DL (0.50-1.00) Estimat Glomerular Filtration 116 ML/MIN Rate (>89) Random Glucose 114 MG/DL (74-106) Calcium Level 8.6 MG/DL (8.5-10.1) Iron Level 39 MCG/DL (50-170) Total Iron Binding Capacity 223 MCG/DL (250-450) Percent Iron Saturation 17.5 % (20-50) Ferritin 338 NG/ML (8-252) Total Bilirubin 0.5 MG/DL (0.2-1.0) Aspartate Amino Transf 33 U/L (15-37) (AST/SGOT) Alanine Aminotransferase 11 U/L (10-53) (ALT/SGPT) Alkaline Phosphatase 279 U/L (45-117) Total Protein 6.1 GM/DL (6.4-8.2) Albumin 2.3 GM/DL (3.4-5.0) Objective Remarks exam V/S: reviewed, hypertensive, normal pulse, afebrile GENERAL: This is a well-nourished, well-developed patient, in no apparent distress. CARDIOVASCULAR: Regular rate and rhythm without murmurs, gallops, or rubs. RESPIRATORY: Clear to auscultation Anteriorly with good breath sounds Gastrointestinal: Soft, minimal discomfort on deep palpation diffusely Medications and IVs Inpatient Medications Acetaminophen (Tylenol) 650 mg Q4H PRN PO pain, fever >101 Last administered on 10/08/16 14:36; Start 10/07/16 at 04:45 Ascorbic Acid 500 mg 500 mg BID PO ; Start 10/09/16 at 09:00 Enalaprilat (Vasotec Inj) 1.25 mg Q6H PRN IV PUSH sbp > 160 or dbp> 100 ; Start 10/08/16 at 12:15; Stop 10/08/16 at 12:16; Status DC Enalaprilat 1.25 mg 1.25 mg Q6H PRN IV PUSH sbp > 160 or dbp> 100 Last administered on 10/08/16 22:37; Start 10/07/16 at 11:45 Enoxaparin Sodium (Lovenox Inj) 30 mg Q24H SQ Last administered on 10/07/16 15 :49; Start 10/06/16 at 15:00 Ferrous Sulfate (Ferrous Sulfate) 325 mg BID PO ; Start 10/09/16 at 09:00 Hydralazine HCl (Apresoline) 10 mg Q4HR PRN PO sbp> 160 or dbp > 100; Start at 12:15 Iron Sucrose/ Sodium Chloride (Venofer Inj/NS Inj) 110 ml @ 110 mls/hr ONCE ONCE IV ; Start 10/09/16 at 09:00; Stop 10/09/16 at 09:59; Status DC Iron/Minerals/ Multivitamins (Flintstones Complete) 1 tab DAILY CHEW Last administered on 10/08/16 14:36; Start 10/07/16 at 09:00 Labetalol HCl (Trandate Inj) 10 mg Q4HR PRN IV PUSH sbp > 160 or dbp> 100; Start 10/07/16 at 08:00; Stop 10/07/16 at 11:41; Status DC Levofloxacin/ Dextrose 100 ml @ 100 mls/hr Q24H IV Last administered on 10:01; Start 10/07/16 at 10:00 Losartan Potassium (Cozaar) 25 mg DAILY PO Last administered on 10/09/16 08:37 ; Start 10/09/16 at 09:00 Magnesium Citrate 150 ml 150 ml BID PO Last administered on 10/08/16 08:26; Start 10/06/16 at 21:00 Metronidazole (Flagyl 500 Mg Inj) 100 ml @ 100 mls/hr Q8H IV Last administered on 10/09/16 03:52; Start 10/06/16 at 18:00 Ondansetron HCl (Zofran Inj) 4 mg Q6H PRN IV NAUSEA Last administered on 10:26; Start 10/06/16 at 14:15 Ondansetron HCl 4 mg 4 mg ONCE ONCE IV PUSH Last administered on 10/06/16 09: 39; Start 10/06/16 at 09:30; Stop 10/06/16 at 09:31; Status DC Pantoprazole Sodium (Protonix) 20 mg DAILY PO Last administered on 10/08/16 08 :26; Start 10/07/16 at 09:00 Polyethylene Glycol (Miralax) 17 gm BID PO ; Start 10/08/16 at 21:00 Potassium Bicarb/ Potassium Chloride (K-Lyte Cl Eff) 25 meq DAILY PO Last administered on 10/07/16 09:28; Start 10/07/16 at 09:00 Potassium Chloride (KCl 20 Meq Premix Inj) 100 ml @ 50 mls/hr Q2H IV Last administered on 10/08/16 08:26; Start 10/08/16 at 08:00; Stop 10/08/16 at 11:59 ; Status DC Potassium Cl/ Dextrose/Lact Ringer's 1,000 ml @ 100 mls/hr Q10H IV Last administered on 10/09/16 03:54; Start 10/06/16 at 16:45 Sodium Biphosphate/ Sodium Phosphate (Fleets Enema (Adult)) 133 ml ONCE ONCE RECTAL ; Start 10/08/16 at 18:00; Stop 10/08/16 at 18:01; Status DC Sodium Chloride (NS 1000 ml Inj) 1,000 ml @ 100 mls/hr Q10H IV Last administered on 10/06/16 22:37; Start 10/06/16 at 13:00 Sodium Chloride (NS 500 ml Inj) 500 ml @ 500 mls/hr ONCE ONCE IV ; Start 10/06 at 16:45; Stop 10/06/16 at 17:44; Status DC Sodium Chloride (NS Flush) 2 ml UNSCH PRN IV FLUSH FLUSH AFTER USING IV ACCESS ; Start 10/06/16 at 07:15 Sodium Chloride 2 ml 2 ml BID IV FLUSH Last administered on 10/09/16 08:37; Start 10/06/16 at 21:00 A/P Problem List: (1) Sigmoid diverticulitis ICD Code: K57.32 (2) Hypokalemia ICD Code: E87.6 (3) Anemia ICD Code: D64.9 (4) Liver mass, left lobe ICD Code: R16.0 Assessment and Plan 80 -year-old white female admitted for sigmoid diverticulitis. Abdominal discomfort - sigmoid diverticulitis and sigmoid colon cancer based on limited sigmoidoscopy yesterday due to poor colon prep. Continue IV Levaquin and Flagyl. Nothing by mouth except by mouth meds for possible surgery today. General surgery has been consulted by medical oncology for this - appreciate all recommendations. HTN -on home losartan, as well as Vasotec and hydralazine when necessary blood pressures. If still elevated, will double losartan dose. Discontinuing telemetry as patient is not septic and has no substantial cardiac history. Hypokalemia -improved, monitor Loose stools/diarrhea -improved Hepatic lobe mass -likely metastases from colonic adenocarcinoma Anemia - iron deficient, starting on oral replacement as well as a one-time dose of Danny Allison MD Oct 09, 2016 10:10
[2016-10-09] MEDS: LEVOFLOXACIN 500 MG PREMIX INJ 100 ML IV SCH (11:42)
--- NOTE | 2016-10-09 13:32 | HHI.PR ---
Subjective Remarks The patient has the idea that she's having surgery today. Reassured that she is not. D/W Dr Deleon yesterday. For slow bowel prep with liquids and enemas for possible resection and primary anastamosis. Will need stoma if unable to clean colon. Objective Vital Signs Date Time Temp Pulse Resp B/P Pulse Ox O2 Delivery O2 Flow Rate FiO2 10/09/16 11:50 97.7 81 20 163/72 96 10/09/16 04:00 98.1 86 16 158/69 96 10/09/16 00:07 82 10/09/16 00:00 97.9 77 16 149/69 98 10/08/16 23:00 188/77 10/08/16 20:32 97 10/08/16 20:00 96.7 74 16 139/67 97 10/08/16 16:00 97.0 87 18 162/77 97 10/08/16 14:30 97.2 77 18 165/82 97 10/08/16 13:59 76 18 161/80 96 10/08/16 13:47 98.0 84 18 140/69 99 I/O 10/08/16 10/08/16 10/08/16 10/09/16 10/09/16 10/09/16 07:00 15:00 23:00 07:00 15:00 23:00 Intake Total 960 ml 2116 ml 480 ml 480 ml Output Total 1000 ml 1150 ml 450 ml Balance -40 ml 2116 ml -670 ml 30 ml Intake Oral 960 ml 0 ml 480 ml 480 ml IV Total 2116 ml Output Urine Total 1000 ml 1150 ml 450 ml # Voids 2 1 # Bowel Movements 3 5 4 1 Result Diagram: 10/07/16 0623 10/09/16 0344 Objective Remarks VS-S Abd: flat,soft. Sitting on toilet having loose stools. Assessment and Plan Assessment and Plan Sigmoid lesion Continue slow bowel prep. Demetrius Sierra MD Oct 09, 2016 13:32
[2016-10-09] MEDS: ENOXAPARIN SODIUM 30 MG/0.3 ML SYRINGE SQ SCH (14:59)
[2016-10-09] MEDS: SOD PHOSPHATE/SOD BIPHOSPHATE (ADULT) ENEMA 133ML RECTAL SCH (17:40)
[2016-10-09] MEDS: SODIUM CHLOR 0.9% 1000 ML INJ 1,000 ML IV SCH (21:00)
[2016-10-09] MEDS: ENALAPRILAT 1.25 MG/ML VIAL IV PUSH PRN (21:32)
[2016-10-10] VITALS: BP 138/63; PULSE 81; RESP 18; TEMP 98.3; O2SAT 94
[2016-10-10] MEDS: metroNIDAZOLE 500 MG INJ 100 ML IV SCH ×3 (02:43→18:02)
[2016-10-10] MEDS: D5-LR + KCL 20 MEQ INJ 1,000 ML IV SCH ×3 (02:44→18:01)
[2016-10-10 04:00] VITALS: BP 137/63; PULSE 79; RESP 18; TEMP 96.2; O2SAT 95
[2016-10-10] MEDS: SODIUM CHLOR 0.9% 1000 ML INJ 1,000 ML IV SCH ×2 (04:41→17:00)
--- NOTE | 2016-10-10 06:28 | MB ---
cc: KIRBY KEARNEY M.D., ANDREW WEISS,ANTONIO Galvan M.D. DATE OF CONSULTATION: 10/09/2016 REQUESTING PHYSICIAN: Dr. Vuong REASON FOR CONSULTATION: Surgical oncology evaluation of large left hepatic lobe mass. 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 The patient was originally admitted for concern for left lower quadrant pain and possible diverticulitis, however, on imaging she was found to have a mass in the sigmoid colon as well as large liver lesion, measuring 7.6 cm. The patient underwent evaluation by colorectal surgery as well as sigmoidoscopy by Dr. Kirby Kearney which showed large mass in the sigmoid colon of 35 cm. Biopsies were obtained and are currently pending but this clinically was adenocarcinoma. The liver mass was attempted to be biopsied on September 22, however, this was nondiagnostic. Biopsy 09/24/2016 showed apparently necrotic adenocarcinoma. Currently the patient is having some loose stool, is tolerating a diet and having no discomfort. Surgical oncology was asked to evaluate the patient for possible combined resection of the liver metastasis and primary tumor of the sigmoid. This is asked to be done in conjunction with Dr. Kirby Kearney. REVIEW OF SYSTEMS: A 12 point review of systems is conducted with the patient and is negative except for the pertinent positives above. The patient has had approximately 10 pounds of weight loss in the past 30 days. PAST MEDICAL HISTORY: 1. Hypertension. 2. Borderline diabetes. PAST SURGICAL HISTORY: 1. Total abdominal hysterectomy. Bilateral salpingo-oophorectomy at age 40. 2. Cholecystectomy back in the 80s laparoscopically. 3. Carpal tunnel release. ALLERGIES: LIPITOR LOVASTATIN MEDICATIONS: 1. Losartan. 2. Omeprazole. 3. Zofran p.r.n. 4. Potassium 5. Tramadol SOCIAL HISTORY: The patient does not smoke, or use any alcohol. FAMILY HISTORY: The patient is adopted. No known history of colon cancer. PHYSICAL EXAMINATION: VITAL SIGNS: Temperature 98.3 degrees, pulse 77, blood pressure 185/76. GENERAL: The patient is in no acute distress. Head: Normocephalic, atraumatic. Pupils round, reactive to light and accommodation. Sclerae is anicteric. Moist mucous membranes. Neck: Supple. No JVD. No thyromegaly. Lungs: Clear to auscultation bilaterally. Nonlabored breathing pattern. Heart: Regular rate and rhythm. No murmurs. Abdomen: Soft, nondistended. No organomegaly. No ascites, no hernias. Normal bowel sounds. No tenderness. No signs of peritonitis, no rebound tenderness. Back: No CVA tenderness. Extremities: No clubbing, cyanosis or edema. Neurologic: The patient is alert, oriented x3, nonfocal peripheral exam. Cranial nerves II-XII are grossly intact. LABORATORY VALUES: Hemoglobin is 9.9, albumin is decreased at 2.3. CEA is elevated at 147. ASSESSMENT/PLAN The patient is an 80 year-old female with stage IV sigmoid colon cancer. On imaging appears to be a solitary liver metastases. The metastases is quite large at 7 cm and abuts the hepatic veins and the dome of the liver. I feel this will potentially require significant hepatic resection with significantly elevated risks considering the patient's age. I did have a long discussion with the patient and discussed the various options including up front resection, chemotherapy followed by resection, as well as individual surgeries for liver disease and primary disease, as well as combined resection, and various scenarios, and the risks and benefits of each scenario. Due to the patient's age and the symptomatic nature of her tumor, I feel it is in the patient's best interest to proceed with surgery for her primary tumor due to her symptoms in the most minimally invasive way possible to relieve her symptoms and deal with her primary tumor. After she has successfully recovered from this surgery, and if the patient is found to have significant metastatic disease at surgery or on PET scan, then I would be in favor of systemic approach. However, if the patient has no other disease on staging other than her left hepatic lesion, I would consider surgical resection versus alternative therapy based on discussion at that time. I do not recommend combined resection of primary and liver due to the large tumor. I feel like this approach is not appropriate for her age and the size of the liver tumor, and the combined resection would be too high-risk for this patient. I discussed this with her and she is in agreement. All of the questions were answered to her satisfaction. We will follow along with the patient. My contact information was provided to her for follow up as well. Thank you for the consultation. MD JAZMYN Hammer/WES /11:43 PM /6:00 AM
[2016-10-10] MEDS: PANTOPRAZOLE SOD 20 MG DELAYED RELEASE TAB PO SCH (08:13)
[2016-10-10] MEDS: MULTIVITAMINS/IRON/MINERALS CHEWABLE TAB CHEW SCH (08:13)
[2016-10-10] MEDS: LOSARTAN 25 MG TAB PO SCH (08:13)
[2016-10-10 08:19] VITALS: BP 148/82; PULSE 79; RESP 20; TEMP 98.3; O2SAT 94
[2016-10-10] MEDS: SODIUM CHLORIDE 0.9% FLUSH 10 ML FLUSH IV FLUSH SCH ×2 (09:00→21:17)
[2016-10-10] MEDS: ASCORBIC ACID 500 MG TAB PO SCH ×2 (09:00→21:00)
[2016-10-10] MEDS: POLYETHYLENE GLYCOL 17 GM PKG PO SCH ×2 (09:00→21:16)
[2016-10-10] MEDS: FERROUS SULFATE 325 MG (65 MG ELEMENTAL IRON) TAB PO SCH ×2 (09:00→21:00)
[2016-10-10] MEDS: POTASSIUM CHLORIDE 25 MEQ EFFERVESCENT TAB PO SCH (09:00)
[2016-10-10] MEDS: MAGNESIUM CITRATE SOLN 300 ML BTL PO SCH ×3 (09:00→21:17)
--- NOTE | 2016-10-10 09:09 | HHI.PR ---
Subjective Remarks Follow up on patient with diverticulitis and probable colon cancer. Patient seen and examined today. Patient complaining of lower abdominal pain/ discomfort. Requesting something for pain control. Patient also reports brief episode of anxiety last night when she woke up in the middle of the night and began to panic. Patient reports it resolved quickly. She denies any fever or chills. No nausea or vomiting. Objective Vitals Vital Signs Date Time Temp Pulse Resp B/P Pulse Ox O2 Delivery O2 Flow Rate FiO2 10/10/16 08:19 98.3 79 20 148/82 94 10/10/16 04:00 96.2 79 18 137/63 95 10/10/16 00:00 98.3 81 18 138/63 94 10/09/16 23:00 136/73 10/09/16 20:00 98.3 77 18 185/76 95 10/09/16 15:50 97.9 79 20 140/67 95 10/09/16 11:50 97.7 81 20 163/72 96 I/O 10/09/16 10/09/16 10/09/16 10/10/16 10/10/16 10/10/16 07:00 15:00 23:00 07:00 15:00 23:00 Intake Total 480 ml 876 ml 420 ml 60 ml Output Total 450 ml 350 ml 400 ml Balance 30 ml 876 ml 70 ml -340 ml Intake Oral 480 ml 0 ml 420 ml 60 ml IV Total 876 ml Output Urine Total 450 ml 350 ml 400 ml # Voids 3 # Bowel Movements 1 2 2 Result Diagram: 10/07/16 0623 10/09/16 0344 Imaging Last Impressions Abdomen/Pelvis CT 10/06/16 0712 Signed Impressions: Service Date/Time: Thursday, October 06, 2016 11:36 - CONCLUSION: 1. Thick-walled sigmoid colon raising possibility of colitis, diverticulitis or possible colonic neoplasm. Colonoscopy may be helpful for further evaluation if clinically indicated. 2. Persistent moderate ureteropelvicaliectasis on the left. 3. Stable left hepatic lobe mass measuring 7.6 x 7.4 cm. 4. Minimal ascites within the abdomen and pelvis. 5. Tiny right pleural effusion with adjacent compressive atelectasis. German Knutson MD Objective Remarks GEN: WD/WN female who appears younger than her stated age. INAD. Awake and alert. Sitting up on side of bed. HEENT: NC/AT, EOMI, MMM CARDIOVASCULAR: RRR. No murmur appreciated. RESPIRATORY: CTAB. No accessory muscle use. GASTROINTESTINAL: Abdomen soft, mild tenderness to palpation diffusely. (+)BS. MUSCULOSKELETAL: No clubbing, cyanosis or edema. NEURO: Awake and alert. Able to move all extremities. PSYCH: Normal judgement and insight. Affect appropriate. Medications and IVs Current Medications Medications (Trade) Dose Ordered Sig/Sg Route Start Time Stop Time Status Last Admin Sodium Chloride 2 ml 2 ml UNSCH PRN IV FLUSH 10/06/16 07:15 (NS 1000 ml Inj) 1,000 ml @ 100 mls/hr Q10H IV 10/06/16 13:00 10/10/16 04:41 Sodium Chloride 2 ml 2 ml BID IV FLUSH 10/06/16 21:00 10/09/16 21:26 Levofloxacin/ Dextrose 100 ml @ 100 mls/hr Q24H IV 10/07/16 10:00 10/09/16 11:42 (Flagyl 500 Mg Inj) 100 ml @ 100 mls/hr Q8H IV 10/06/16 18:00 10/10/16 02:43 (Zofran Inj) 4 mg Q6H PRN IV 10/06/16 14:15 10/07/16 10:26 (Lovenox Inj) 30 mg Q24H SQ 10/06/16 15:00 10/09/16 14:59 (Flintstones Complete) 1 tab DAILY CHEW 10/07/16 09:00 10/10/16 08:13 (K-Lyte Cl Eff) 25 meq DAILY PO 10/07/16 09:00 10/07/16 09:28 (Protonix) 20 mg DAILY PO 10/07/16 09:00 10/10/16 08:13 Magnesium Citrate 150 ml 150 ml BID PO 10/06/16 21:00 10/08/16 08:26 (D5-Lr + KCl 20 Meq Inj) 1,000 ml @ 100 mls/hr Q10H IV 10/06/16 16:45 10/10/16 04:40 (Tylenol) 650 mg Q4H PRN PO 10/07/16 04:45 10/08/16 14:36 (Vasotec Inj) 1.25 mg Q6H PRN IV PUSH 10/07/16 11:45 10/09/16 21:32 (Cozaar) 25 mg DAILY PO 10/09/16 09:00 10/10/16 08:13 (Apresoline) 10 mg Q4HR PRN PO 10/08/16 12:15 (Miralax) 17 gm BID PO 10/08/16 21:00 (Ferrous Sulfate) 325 mg BID PO 10/09/16 09:00 (Vitamin C) 500 mg BID PO 10/09/16 09:00 (Fleets Enema (Adult)) 133 ml DAILY RECTAL 10/09/16 12:30 10/09/16 17:40 A/P Problem List: (1) Sigmoid diverticulitis ICD Code: K57.32 Status: Acute (2) Hypokalemia ICD Code: E87.6 Status: Acute (3) Anemia ICD Code: D64.9 Status: Chronic (4) Liver mass, left lobe ICD Code: R16.0 Status: Chronic Assessment and Plan 80 -year-old white female admitted for sigmoid diverticulitis. Abdominal discomfort - sigmoid diverticulitis and sigmoid colon cancer based on limited sigmoidoscopy yesterday due to poor colon prep. Continue IV Levaquin and Flagyl. GS following. Possible surgery tomorrow. Patient on clears andslo bowel prep. Dr. Vuong of Oncology following and consulted surgical oncology. Appreciate all recommendations. Tramadol prn for pain. HTN - controlled. Continue on home losartan, as well as Vasotec and hydralazine when necessary blood pressures. If any future elevations in BP, will double losartan dose. Hypokalemia -improved, monitor. AM labs pending. Hepatic lobe mass - likely metastases from colonic adenocarcinoma. Patient seen by Dr. Davidson and per his assessment: stage IV sigmoid colon cancer with 7cm solitary liver metastases with recommendation to proceed with surgery for primary tumor followed by systemic chemo if signs of significant metastatic disease. If no other disease identified outside of hepatic lesion, then separate surgical resection. Anemia - iron deficient, starting on oral replacement as well as a one-time dose of Venofer. Discussed with patient, nursing staff and Demetria Cabrera Oct 10, 2016 09:09
[2016-10-10] MEDS: traMADol HCL 50 MG TAB PO PRN ×2 (09:38→21:11)
[2016-10-10] MEDS: LEVOFLOXACIN 500 MG PREMIX INJ 100 ML IV SCH (09:39)
--- NOTE | 2016-10-10 10:26 | HHI.PR ---
Subjective Remarks The patient wants surgery MIGDALIA. Appreciate Dr Davidson consult. Continuing bowel prep Objective Vital Signs Date Time Temp Pulse Resp B/P Pulse Ox O2 Delivery O2 Flow Rate FiO2 10/10/16 08:19 98.3 79 20 148/82 94 10/10/16 04:00 96.2 79 18 137/63 95 10/10/16 00:00 98.3 81 18 138/63 94 10/09/16 23:00 136/73 10/09/16 20:00 98.3 77 18 185/76 95 10/09/16 15:50 97.9 79 20 140/67 95 10/09/16 11:50 97.7 81 20 163/72 96 I/O 10/09/16 10/09/16 10/09/16 10/10/16 10/10/16 10/10/16 07:00 15:00 23:00 07:00 15:00 23:00 Intake Total 480 ml 876 ml 420 ml 60 ml Output Total 450 ml 350 ml 400 ml Balance 30 ml 876 ml 70 ml -340 ml Intake Oral 480 ml 0 ml 420 ml 60 ml IV Total 876 ml Output Urine Total 450 ml 350 ml 400 ml # Voids 3 # Bowel Movements 1 2 2 Result Diagram: 10/07/16 0623 10/09/16 0344 Objective Remarks VS-S Abd: flat,soft. Assessment and Plan Assessment and Plan Sigmoid lesion Continue slow bowel prep. Demetrius Sierra MD Oct 10, 2016 10:26
[2016-10-10 11:14] LABS: AUTOMATED NEUTROPHIL # 9.1 TH/MM3 (1.8-7.7); BASOPHIL # 0.1 TH/MM3 (0-0.2); BASOPHIL % 0.7 % (0.0-2.0); EOSINOPHIL # 0.1 TH/MM3 (0-0.4); EOSINOPHIL % 0.9 % (0.0-4.0); HEMATOCRIT 31.9 % (35.0-46.0); LYMPH % 10.6 % (9.0-44.0); LYMPHOCYTE # 1.3 TH/MM3 (1.0-4.8); MEAN CELL VOLUME 75.3 FL (80.0-100.0); MEAN CORPUSCULAR HEMOGLOBIN 23.7 PG (27.0-34.0); MEAN CORPUSCULAR HGB CONC 31.5 % (32.0-36.0); MONO % 14.3 % (0.0-8.0); NEUT % 73.5 % (16.0-70.0); PLATELET COUNT 148 TH/MM3 (150-450); RED BLOOD COUNT 4.24 MIL/MM3 (4.00-5.30); RED CELL DISTRIBUTION WIDTH 24.1 % (11.6-17.2); WHITE BLOOD COUNT 12.4 TH/MM3 (4.0-11.0)
[2016-10-10 11:18] LABS: HEMO FLAGS AUTO DIFF
[2016-10-10] MEDS: SOD PHOSPHATE/SOD BIPHOSPHATE (ADULT) ENEMA 133ML RECTAL SCH (11:37)
[2016-10-10 11:38] LABS: EOSINOPHILS 1 % (0-4); METAMYELOCYTES 2 % (0-1); MYELOCYTES 1 % (0-0); NEUTROPHIL # MANUAL DIFF 8.8 TH/MM3 (1.8-7.7); PLATELET ESTIMATE SMEAR LOW (NORMAL); PLATELET MORPHOLOGY NORMAL (NORMAL); POLYS (SEG NEUTROPHILS) 68 % (16-70); SCAN/DIFF FINAL DIFF MANUAL; WBC DIFF SAMPLE 100
[2016-10-10 11:42] LABS: POTASSIUM 3.4 MEQ/L (3.5-5.1)
[2016-10-10 11:50] VITALS: BP 138/73; PULSE 82; RESP 20; TEMP 97.1; O2SAT 97
[2016-10-10] MEDS ORDERED: POTASSIUM CHLORIDE 10 MEQ CONTROLLED RELEASE TAB PO ONE (12:45)
[2016-10-10 15:45] VITALS: BP 145/82; PULSE 98; RESP 20; TEMP 96.9; O2SAT 96
[2016-10-10] MEDS ORDERED: POTASSIUM CHLORIDE 25 MEQ EFFERVESCENT TAB PO ONE (16:45)
[2016-10-10] MEDS: ENOXAPARIN SODIUM 30 MG/0.3 ML SYRINGE SQ SCH (18:01)
[2016-10-10 20:00] VITALS: BP 133/63; PULSE 85; RESP 18; TEMP 97; O2SAT 97
[2016-10-11] VITALS: BP 138/74; PULSE 78; RESP 16; TEMP 96.9; O2SAT 96
[2016-10-11] MEDS: metroNIDAZOLE 500 MG INJ 100 ML IV SCH ×3 (01:54→17:43)
[2016-10-11] MEDS: SODIUM CHLOR 0.9% 1000 ML INJ 1,000 ML IV SCH ×3 (03:00→21:36)
[2016-10-11 04:00] VITALS: BP 145/67; PULSE 86; RESP 17; TEMP 96.3; O2SAT 96
[2016-10-11] MEDS: D5-LR + KCL 20 MEQ INJ 1,000 ML IV SCH ×2 (04:46→17:49)
[2016-10-11 08:00] VITALS: BP 184/96; PULSE 80; RESP 20; TEMP 96.3; O2SAT 98
--- NOTE | 2016-10-11 08:58 | HHI.PR ---
Subjective Remarks Follow-up for abdominal pain and diarrhea due to colonic mass Patient stated that pain is better controlled with tramadol. She stated that she's been very anxious with the whole entire process and is causing her blood pressure to go high which makes her even more anxious because she thinks can have a stroke. Patient stated after drinking potassium she's feels very nauseous and asking for antiemetics. Otherwise she has no other complaints. Her is at the bedside and he had a lot of questions regards to her surgery and care. Dealt with patient's nurse Jessica. Objective Vitals Vital Signs Date Time Temp Pulse Resp B/P Pulse Ox O2 Delivery O2 Flow Rate FiO2 10/11/16 08:00 96.3 80 20 184/96 98 10/11/16 04:00 96.3 86 17 145/67 96 10/11/16 00:00 96.9 78 16 138/74 96 10/10/16 20:00 97.0 85 18 133/63 97 10/10/16 15:45 96.9 98 20 145/82 96 10/10/16 11:50 97.1 82 20 138/73 97 I/O 10/10/16 10/10/16 10/10/16 10/11/16 10/11/16 10/11/16 06:59 14:59 22:59 06:59 14:59 22:59 Intake Total 60 ml 0 ml 1280 ml 900 ml Output Total 400 ml 300 ml 600 ml Balance -340 ml 0 ml 980 ml 300 ml Intake Oral 60 ml 0 ml 480 ml IV Total 800 ml 900 ml Output Urine Total 400 ml 300 ml 600 ml # Voids 5 # Bowel Movements 4 1 1 Result Diagram: 10/10/16 1046 10/10/16 1046 Objective Remarks GENERAL: laying comfortable in bed in NAD SKIN: Warm and dry. CARDIOVASCULAR: Regular rate and rhythm without murmurs, gallops, or rubs. RESPIRATORY: Breath sounds equal bilaterally. No accessory muscle use. GASTROINTESTINAL: Abdomen soft, non-tender, nondistended. MUSCULOSKELETAL: No cyanosis, or edema. BACK: Nontender without obvious deformity. No CVA tenderness. Medications and IVs Current Medications Sodium Chloride 2 ml 2 ml UNSCH PRN IV FLUSH FLUSH AFTER USING IV ACCESS; Start 10/06/16 at 07:15 Metronidazole (Flagyl 500 Mg Inj) 100 ml @ 100 mls/hr ONCE ONCE IV Last administered on 10/06/16 09:39; Start 10/06/16 at 09:30; Stop 10/06/16 at 10:29 ; Status DC Ondansetron HCl 4 mg 4 mg ONCE ONCE IV PUSH Last administered on 10/06/16 09: 39; Start 10/06/16 at 09:30; Stop 10/06/16 at 09:31; Status DC Levofloxacin/ Dextrose 150 ml @ 100 mls/hr ONCE ONCE IV Last administered on 10/06/16 10:44; Start 10/06/16 at 09:30; Stop 10/06/16 at 10:59; Status DC Sodium Chloride (NS 1000 ml Inj) 1,000 ml @ 100 mls/hr Q10H IV Last administered on 10/10/16 04:41; Start 10/06/16 at 13:00 Sodium Chloride 2 ml 2 ml BID IV FLUSH Last administered on 10/09/16 21:26; Start 10/06/16 at 21:00 Levofloxacin/ Dextrose 100 ml @ 100 mls/hr Q24H IV Last administered on 09:39; Start 10/07/16 at 10:00 Metronidazole (Flagyl 500 Mg Inj) 100 ml @ 100 mls/hr Q8H IV Last administered on 10/11/16 01:54; Start 10/06/16 at 18:00 Ondansetron HCl (Zofran Inj) 4 mg Q6H PRN IV NAUSEA Last administered on 10:26; Start 10/06/16 at 14:15 Enoxaparin Sodium 30 mg 30 mg Q24H SQ Last administered on 10/10/16 18:01; Start 10/06/16 at 15:00 Potassium Chloride (KCl 20 Meq Premix Inj) 100 ml @ 50 mls/hr Q2H IV Last administered on 10/06/16 22:35; Start 10/06/16 at 15:00; Stop 10/06/16 at 18:59 ; Status DC Iron/Minerals/ Multivitamins (Flintstones Complete) 1 tab DAILY CHEW Last administered on 10/10/16 08:13; Start 10/07/16 at 09:00 Potassium Bicarb/ Potassium Chloride (K-Lyte Cl Eff) 25 meq DAILY PO Last administered on 10/07/16 09:28; Start 10/07/16 at 09:00 Pantoprazole Sodium (Protonix) 20 mg DAILY PO Last administered on 10/10/16 08 :13; Start 10/07/16 at 09:00 Magnesium Citrate 150 ml 150 ml BID PO Last administered on 10/10/16 21:17; Start 10/06/16 at 21:00 Potassium Cl/ Dextrose/Lact Ringer's 1,000 ml @ 100 mls/hr Q10H IV Last administered on 10/11/16 04:46; Start 10/06/16 at 16:45 Sodium Chloride (NS 500 ml Inj) 500 ml @ 500 mls/hr ONCE ONCE IV ; Start 10/06 at 16:45; Stop 10/06/16 at 17:44; Status DC Acetaminophen (Tylenol) 650 mg Q4H PRN PO fever >101 Last administered on 14:36; Start 10/07/16 at 04:45 Losartan Potassium (Cozaar) 50 mg ONCE ONCE PO Last administered on 10/07/16 05:06; Start 10/07/16 at 05:00; Stop 10/07/16 at 05:01; Status DC Losartan Potassium (Cozaar) 50 mg DAILY PO Last administered on 10/08/16 08:26 ; Start 10/07/16 at 09:00; Stop 10/08/16 at 12:20; Status DC Labetalol HCl (Trandate Inj) 10 mg Q4HR PRN IV PUSH sbp > 160 or dbp> 100; Start 10/07/16 at 08:00; Stop 10/07/16 at 11:41; Status DC Enalaprilat 1.25 mg 1.25 mg Q6H PRN IV PUSH sbp > 160 or dbp> 100 Last administered on 10/09/16 21:32; Start 10/07/16 at 11:45 Potassium Chloride 100 ml @ 50 mls/hr Q2H IV ; Start 10/07/16 at 18:59; Stop at 22:58; Status DC Potassium Chloride (KCl 20 Meq Premix Inj) 100 ml @ 50 mls/hr Q2H IV Last administered on 10/08/16 08:26; Start 10/08/16 at 08:00; Stop 10/08/16 at 11:59 ; Status DC Sodium Biphosphate/ Sodium Phosphate (Fleets Enema (Adult)) 133 ml ONCE ONCE RECTAL Last administered on 10/08/16 11:12; Start 10/08/16 at 10:00; Stop at 10:01; Status DC Losartan Potassium (Cozaar) 25 mg DAILY PO Last administered on 10/10/16 08:13 ; Start 10/09/16 at 09:00 Enalaprilat (Vasotec Inj) 1.25 mg Q6H PRN IV PUSH sbp > 160 or dbp> 100 ; Start 10/08/16 at 12:15; Stop 10/08/16 at 12:16; Status DC Hydralazine HCl (Apresoline) 10 mg Q4HR PRN PO sbp> 160 or dbp > 100; Start at 12:15 Propofol (Diprivan 200 Mg/20 ml Inj) 220 mg STK-MED ONCE IV ; Start 10/08/16 at 13:35; Stop 10/08/16 at 13:52; Status DC Sodium Biphosphate/ Sodium Phosphate (Fleets Enema (Adult)) 133 ml ONCE ONCE RECTAL ; Start 10/08/16 at 18:00; Stop 10/08/16 at 18:01; Status DC Polyethylene Glycol (Miralax) 17 gm BID PO Last administered on 10/10/16 21:16 ; Start 10/08/16 at 21:00 Ferrous Sulfate (Ferrous Sulfate) 325 mg BID PO ; Start 10/09/16 at 09:00 Ascorbic Acid 500 mg 500 mg BID PO ; Start 10/09/16 at 09:00 Iron Sucrose/ Sodium Chloride (Venofer Inj/NS Inj) 110 ml @ 110 mls/hr ONCE ONCE IV Last administered on 10/09/16 14:59; Start 10/09/16 at 09:00; Stop at 09:59; Status DC Sodium Biphosphate/ Sodium Phosphate (Fleets Enema (Adult)) 133 ml DAILY RECTAL Last administered on 10/10/16 11:37; Start 10/09/16 at 12:30 Tramadol HCl (Ultram) 50 mg Q6H PRN PO PAIN SCALE 1 TO 5 Last administered on 21:11; Start 10/10/16 at 09:00 Potassium Chloride (KCl) 30 meq ONCE ONCE PO ; Start 10/10/16 at 12:45; Stop at 12:46; Status DC Potassium Bicarb/ Potassium Chloride (K-Lyte Cl Eff) 25 meq ONCE ONCE PO Last administered on 10/10/16t 18:02; Start 10/10/16 at 16:45; Stop 10/10/16 at 16:46; Status DC Lorazepam (Ativan) 0.5 mg Q12H PRN PO anxiety; Start 10/11/16 at 09:00 A/P Problem List: (1) Sigmoid diverticulitis ICD Code: K57.32 Status: Acute (2) Hypokalemia ICD Code: E87.6 Status: Acute (3) Anemia ICD Code: D64.9 Status: Chronic (4) Liver mass, left lobe ICD Code: R16.0 Status: Chronic Assessment and Plan 80 -year-old white female who was admitted due to chronic diarrhea that was thought to be due to diverticulitis Colonic mass with metastatic lesion to the left lobe of the liver -Status post colonoscopy by Dr. Deleon with biopsy. Pending biopsy. -Surgical oncologists consulted Dr. Davidson. Possible surgery today. Per his recommendation to proceed with surgery for primary tumor followed by systemic chemo if signs of significant metastatic disease. If no other disease identified outside of hepatic lesion, then separate surgical resection. -Oncologist is following. HTN -Labile. Due to component of anxiety. -Continue with home regimen. Hypokalemia -Most likely secondary to decreased oral intake and emesis. -Replenish as needed. Anemia -iron deficient, starting on oral replacement as well as a one-time dose of Venofer. Anxiety -Situational. -Will give Ativan when necessary. Discharge Planning Patient is scheduled for OR. Eunice Winslow MD Oct 11, 2016 08:58
[2016-10-11] MEDS ORDERED: LORazepam 0.5 MG TAB PO PRN (09:00)
[2016-10-11] MEDS: ASCORBIC ACID 500 MG TAB PO SCH ×2 (09:00→21:31)
[2016-10-11] MEDS: POTASSIUM CHLORIDE 25 MEQ EFFERVESCENT TAB PO SCH (09:00)
[2016-10-11] MEDS: MULTIVITAMINS/IRON/MINERALS CHEWABLE TAB CHEW SCH (09:00)
[2016-10-11] MEDS: FERROUS SULFATE 325 MG (65 MG ELEMENTAL IRON) TAB PO SCH ×2 (09:00→21:00)
[2016-10-11] MEDS: PANTOPRAZOLE SOD 20 MG DELAYED RELEASE TAB PO SCH (09:24)
[2016-10-11] MEDS: LOSARTAN 25 MG TAB PO SCH (09:24)
[2016-10-11] MEDS: SOD PHOSPHATE/SOD BIPHOSPHATE (ADULT) ENEMA 133ML RECTAL SCH (09:24)
[2016-10-11] MEDS: ONDANSETRON HCL 4 MG/2 ML VIAL IV PRN (09:24)
[2016-10-11] MEDS: SODIUM CHLORIDE 0.9% FLUSH 10 ML FLUSH IV FLUSH SCH ×2 (09:34→21:00)
[2016-10-11] MEDS: LEVOFLOXACIN 500 MG PREMIX INJ 100 ML IV SCH (10:20)
[2016-10-11] MEDS: MAGNESIUM CITRATE SOLN 300 ML BTL PO SCH ×2 (11:35→21:00)
[2016-10-11] MEDS: POLYETHYLENE GLYCOL 17 GM PKG PO SCH ×2 (11:35→21:31)
[2016-10-11 12:00] VITALS: BP 160/92; PULSE 89; RESP 18; TEMP 96.8; O2SAT 98
[2016-10-11] MEDS: hydrALAZINE HCL 10 MG TAB PO PRN ×2 (13:25→21:36)
[2016-10-11] MEDS: ENOXAPARIN SODIUM 30 MG/0.3 ML SYRINGE SQ SCH (15:41)
[2016-10-11] MEDS: traMADol HCL 50 MG TAB PO PRN (15:45)
[2016-10-11 16:00] VITALS: BP 137/69; PULSE 56; RESP 18; TEMP 96.7; O2SAT 98
--- NOTE | 2016-10-11 16:38 | HHI.PR ---
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 Comfortable, passing liquid stools Objective Vital Signs Date Time Temp Pulse Resp B/P Pulse Ox O2 Delivery O2 Flow Rate FiO2 10/11/16 12:00 96.8 89 18 160/92 98 10/11/16 08:00 96.3 80 20 184/96 98 10/11/16 04:00 96.3 86 17 145/67 96 10/11/16 00:00 96.9 78 16 138/74 96 10/10/16 20:00 97.0 85 18 133/63 97 I/O 10/10/16 10/10/16 10/10/16 10/11/16 10/11/16 10/11/16 06:59 14:59 22:59 06:59 14:59 22:59 Intake Total 60 ml 0 ml 1280 ml 900 ml 360 ml Output Total 400 ml 300 ml 600 ml Balance -340 ml 0 ml 980 ml 300 ml 360 ml Intake Oral 60 ml 0 ml 480 ml 360 ml IV Total 800 ml 900 ml Output Urine Total 400 ml 300 ml 600 ml # Voids 5 4 # Bowel Movements 4 1 1 3 Result Diagram: 10/10/16 1046 10/10/16 1046 Objective Remarks Abdomen soft, mild distension, nontender Assessment and Plan Assessment and Plan On OR schedule for 5 pm . Discussed plan for sigmoid resection with primary anastomosis as goal. Depending on what we find at surgery, may need resection/reanastomosis with proximal diversion, or Delarosa's procedure. Discussed all possibilities with patient. Will perform surgery open in order to assess fully for further tumor load. Risks and benefits discussed with patient including but not limited to , heart attack, stroke, pulmonary embolism/blood clot, pneumonia, infection, bleeding, injury to other organs, need for a stoma, anastomotic leak, hernia, or scar tissue causing bowel obstruction. She states she understands and wishes to proceed. Continue gentle bowel prep Fabiola Deleon MD Oct 11, 2016 16:38
[2016-10-11 20:00] VITALS: BP 182/77; PULSE 86; RESP 16; TEMP 98; O2SAT 95
[2016-10-12] VITALS (7 sets, daily range): BP systolic 114–175; BP diastolic 60–76; PULSE 76–93; RESP 16–18; TEMP 96.5–97.9; O2SAT 93–98
[2016-10-12] MEDS: metroNIDAZOLE 500 MG INJ 100 ML IV SCH ×3 (02:35→17:23)
[2016-10-12] MEDS: D5-LR + KCL 20 MEQ INJ 1,000 ML IV SCH ×3 (05:21→22:39)
[2016-10-12] MEDS: hydrALAZINE HCL 10 MG TAB PO PRN (05:21)
[2016-10-12] MEDS: ONDANSETRON HCL 4 MG/2 ML VIAL IV PRN ×2 (05:22→13:29)
[2016-10-12] MEDS: SODIUM CHLORIDE 0.9% FLUSH 10 ML FLUSH IV FLUSH SCH ×2 (09:00→21:00)
[2016-10-12] MEDS: SODIUM CHLOR 0.9% 1000 ML INJ 1,000 ML IV SCH ×2 (09:00→18:06)
[2016-10-12] MEDS: POTASSIUM CHLORIDE 25 MEQ EFFERVESCENT TAB PO SCH (09:00)
[2016-10-12] MEDS: FERROUS SULFATE 325 MG (65 MG ELEMENTAL IRON) TAB PO SCH ×2 (09:00→21:00)
[2016-10-12] MEDS: ASCORBIC ACID 500 MG TAB PO SCH ×2 (09:00→21:00)
[2016-10-12] MEDS: MAGNESIUM CITRATE SOLN 300 ML BTL PO SCH ×2 (09:26→21:00)
[2016-10-12] MEDS: MULTIVITAMINS/IRON/MINERALS CHEWABLE TAB CHEW SCH (09:26)
[2016-10-12] MEDS: PANTOPRAZOLE SOD 20 MG DELAYED RELEASE TAB PO SCH (09:26)
[2016-10-12] MEDS: LOSARTAN 25 MG TAB PO SCH (09:26)
[2016-10-12] MEDS: POLYETHYLENE GLYCOL 17 GM PKG PO SCH ×2 (09:26→22:31)
[2016-10-12] MEDS: SOD PHOSPHATE/SOD BIPHOSPHATE (ADULT) ENEMA 133ML RECTAL SCH (09:27)
--- NOTE | 2016-10-12 09:36 | HHI.PR ---
Subjective Remarks In bed. Patient says he feels tired and weak. Also says he is cold. No n/v/d/c. No fevers or chills. Did not have diarrhea, no constipation .eating fairly well. Did not sleep well at night. Objective Vitals Vital Signs Date Time Temp Pulse Resp B/P Pulse Ox O2 Delivery O2 Flow Rate FiO2 10/12/16 04:00 96.8 90 16 175/75 98 10/12/16 00:00 96.9 86 16 165/70 95 10/11/16 20:00 98.0 86 16 182/77 95 10/11/16 16:00 96.7 56 18 137/69 98 10/11/16 12:00 96.8 89 18 160/92 98 I/O 10/11/16 10/11/16 10/11/16 10/12/16 10/12/16 10/12/16 07:00 15:00 23:00 07:00 15:00 23:00 Intake Total 900 ml 360 ml 1947 ml 1540 ml Output Total 600 ml 1100 ml Balance 300 ml 360 ml 1947 ml 440 ml Intake Oral 360 ml 750 ml IV Total 900 ml 1947 ml 790 ml Output Urine Total 600 ml 1100 ml # Voids 4 # Bowel Movements 1 3 2 Result Diagram: 10/10/16 1046 10/10/16 1046 Imaging Last Impressions Abdomen/Pelvis CT 10/06/16 0712 Signed Impressions: Service Date/Time: Thursday, October 06, 2016 11:36 - CONCLUSION: 1. Thick-walled sigmoid colon raising possibility of colitis, diverticulitis or possible colonic neoplasm. Colonoscopy may be helpful for further evaluation if clinically indicated. 2. Persistent moderate ureteropelvicaliectasis on the left. 3. Stable left hepatic lobe mass measuring 7.6 x 7.4 cm. 4. Minimal ascites within the abdomen and pelvis. 5. Tiny right pleural effusion with adjacent compressive atelectasis. German Knutson MD Objective Remarks GENERAL: laying comfortable in bed in NAD CARDIOVASCULAR: Regular rate and rhythm without murmurs, gallops, or rubs. RESPIRATORY: Breath sounds equal bilaterally. No accessory muscle use. GASTROINTESTINAL: Abdomen soft, non-tender, nondistended. MUSCULOSKELETAL: No cyanosis, or edema. BACK: Nontender without obvious deformity. No CVA tenderness. A/P Problem List: (1) Sigmoid diverticulitis ICD Code: K57.32 Status: Acute (2) Hypokalemia ICD Code: E87.6 Status: Acute (3) Anemia ICD Code: D64.9 Status: Chronic (4) Liver mass, left lobe ICD Code: R16.0 Status: Chronic Assessment and Plan 80 -year-old white female who was admitted due to chronic diarrhea that was thought to be due to diverticulitis Colonic mass with metastatic lesion to the left lobe of the liver Status post colonoscopy by Dr. Deleon with biopsy. Pending biopsy. Surgical oncologists consulted Dr. Davidson. Per his recommendation to proceed with surgery for primary tumor followed by systemic chemo if signs of significant metastatic disease. If no other disease identified outside of hepatic lesion, then separate surgical resection. Plan for OR on 10/14 Oncologist is following. HTN Labile. Due to component of anxiety. Continue with home regimen. Hypokalemia Most likely secondary to decreased oral intake and emesis. Replenish as needed. Anemia -iron deficient, starting on oral replacement as well as a one-time dose of Venofer. Anxiety-Situational. Ativan when necessary. Discharge Planning Pending improvement surgical resection of tumor (plan for OR on 10/14/16) Mary Beth Malloy MD Oct 12, 2016 09:36
[2016-10-12] MEDS: LEVOFLOXACIN 500 MG PREMIX INJ 100 ML IV SCH (11:12)
[2016-10-12] MEDS: ENOXAPARIN SODIUM 30 MG/0.3 ML SYRINGE SQ SCH (13:29)
[2016-10-12] MEDS: traMADol HCL 50 MG TAB PO PRN (22:37)
[2016-10-13] VITALS: BP 154/69; PULSE 94; RESP 16; TEMP 97.7; O2SAT 94
[2016-10-13] MEDS: metroNIDAZOLE 500 MG INJ 100 ML IV SCH ×3 (02:32→18:21)
[2016-10-13 04:00] VITALS: BP 173/81; PULSE 90; RESP 16; TEMP 97.2; O2SAT 95
[2016-10-13] MEDS: SODIUM CHLOR 0.9% 1000 ML INJ 1,000 ML IV SCH ×2 (05:00→14:58)
[2016-10-13 07:49] LABS: AUTOMATED NEUTROPHIL # 9.2 TH/MM3 (1.8-7.7); BASOPHIL # 0.1 TH/MM3 (0-0.2); BASOPHIL % 0.5 % (0.0-2.0); EOSINOPHIL # 0.2 TH/MM3 (0-0.4); EOSINOPHIL % 1.5 % (0.0-4.0); HEMATOCRIT 32.6 % (35.0-46.0); LYMPH % 11.4 % (9.0-44.0); LYMPHOCYTE # 1.5 TH/MM3 (1.0-4.8); MEAN CELL VOLUME 74.9 FL (80.0-100.0); MEAN CORPUSCULAR HEMOGLOBIN 23.8 PG (27.0-34.0); MEAN CORPUSCULAR HGB CONC 31.8 % (32.0-36.0); MONO % 17.4 % (0.0-8.0); NEUT % 69.2 % (16.0-70.0); PLATELET COUNT 169 TH/MM3 (150-450); RED BLOOD COUNT 4.36 MIL/MM3 (4.00-5.30); RED CELL DISTRIBUTION WIDTH 23.6 % (11.6-17.2); WHITE BLOOD COUNT 13.3 TH/MM3 (4.0-11.0)
[2016-10-13 07:55] LABS: HEMO FLAGS AUTO DIFF
[2016-10-13 08:00] VITALS: BP 159/77; PULSE 86; RESP 16; TEMP 97; O2SAT 94
[2016-10-13 08:17] LABS: BICARBONATE 28.3 MEQ/L (21.0-32.0); MAGNESIUM 1.5 MG/DL (1.5-2.5)
[2016-10-13] MEDS: FERROUS SULFATE 325 MG (65 MG ELEMENTAL IRON) TAB PO SCH ×2 (09:00→21:00)
[2016-10-13] MEDS: POTASSIUM CHLORIDE 25 MEQ EFFERVESCENT TAB PO SCH (09:00)
[2016-10-13] MEDS: SODIUM CHLORIDE 0.9% FLUSH 10 ML FLUSH IV FLUSH SCH ×2 (09:00→21:00)
[2016-10-13] MEDS: ASCORBIC ACID 500 MG TAB PO SCH ×2 (09:00→21:00)
[2016-10-13] MEDS: MAGNESIUM CITRATE SOLN 300 ML BTL PO SCH ×2 (09:25→21:00)
[2016-10-13] MEDS: ONDANSETRON HCL 4 MG/2 ML VIAL IV PRN ×2 (09:26→15:42)
[2016-10-13] MEDS: MULTIVITAMINS/IRON/MINERALS CHEWABLE TAB CHEW SCH (09:26)
[2016-10-13] MEDS: POLYETHYLENE GLYCOL 17 GM PKG PO SCH ×2 (09:26→22:17)
[2016-10-13] MEDS: PANTOPRAZOLE SOD 20 MG DELAYED RELEASE TAB PO SCH (09:26)
[2016-10-13] MEDS: LOSARTAN 25 MG TAB PO SCH (09:26)
[2016-10-13] MEDS: SOD PHOSPHATE/SOD BIPHOSPHATE (ADULT) ENEMA 133ML RECTAL SCH (09:26)
--- NOTE | 2016-10-13 09:40 | HHI.PR ---
Subjective Remarks In bed. Patient in nad. Says she has some pain in her belly. Had a BM. Feels tired. Has no appetite and not able to eat much. No fever or chills. No n/v/d/c. Objective Vitals Vital Signs Date Time Temp Pulse Resp B/P Pulse Ox O2 Delivery O2 Flow Rate FiO2 10/13/16 08:00 97.0 86 16 159/77 94 10/13/16 04:00 97.2 90 16 173/81 95 10/13/16 00:00 97.7 94 16 154/69 94 10/12/16 20:56 97.9 91 16 137/68 95 10/12/16 16:00 96.5 90 18 141/60 97 10/12/16 12:00 97.0 93 18 142/68 96 I/O 10/12/16 10/12/16 10/12/16 10/13/16 10/13/16 10/13/16 07:00 15:00 23:00 07:00 15:00 23:00 Intake Total 1540 ml 300 ml 200 ml 2114 ml Output Total 1100 ml 400 ml 300 ml Balance 440 ml -100 ml -100 ml 2114 ml Intake Oral 750 ml 300 ml 200 ml 240 ml IV Total 790 ml 1874 ml Output Urine Total 1100 ml 400 ml 300 ml # Voids 4 # Bowel Movements 2 2 0 0 Result Diagram: 10/13/1672110/13/16721 Imaging Last Impressions Abdomen/Pelvis CT 10/06/1612 Signed Impressions: Service Date/Time: Thursday, October 06, 2016 11:36 - CONCLUSION: 1. Thick-walled sigmoid colon raising possibility of colitis, diverticulitis or possible colonic neoplasm. Colonoscopy may be helpful for further evaluation if clinically indicated. 2. Persistent moderate ureteropelvicaliectasis on the left. 3. Stable left hepatic lobe mass measuring 7.6 x 7.4 cm. 4. Minimal ascites within the abdomen and pelvis. 5. Tiny right pleural effusion with adjacent compressive atelectasis. German Knutson MD Objective Remarks GENERAL: laying comfortable in bed in [facility] CARDIOVASCULAR: Regular rate and rhythm without murmurs, gallops, or rubs. RESPIRATORY: Breath sounds equal bilaterally. No accessory muscle use. GASTROINTESTINAL: Abdomen soft, non-tender, nondistended. MUSCULOSKELETAL: No cyanosis, or edema. BACK: Nontender without obvious deformity. No CVA tenderness. 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 Deleon with biopsy. Pending biopsy. Surgical oncologists consulted Dr. Davidson. Per his recommendation to proceed with surgery for primary tumor followed by systemic chemo if signs of significant metastatic disease. If no other disease identified outside of hepatic lesion, then separate surgical resection. Plan for OR on 10/14 Oncologist is following. HTN Labile. Due to component of anxiety. Continue with home regimen. Hypokalemia Most likely secondary to decreased oral intake and emesis. Replenish as needed. Anemia -iron deficient, starting on oral replacement as well as a one-time dose of Venofer. Anxiety-Situational. Ativan when necessary. Discharge Planning Pending improvement surgical resection of tumor (plan for OR on 10/14/16) Discussed with the patient, nurse, at bedside. Mary Beth Malloy MD Oct 13, 2016 09:40
[2016-10-13 10:31] LABS: BANDS 5 % (0-6); EOSINOPHILS 1 % (0-4); MYELOCYTES 2 % (0-0); POLYS (SEG NEUTROPHILS) 61 % (16-70); WBC DIFF SAMPLE 100
[2016-10-13 10:33] LABS: PLATELET ESTIMATE SMEAR NORMAL (NORMAL); PLATELET MORPHOLOGY ENLARGED (NORMAL); SCAN/DIFF FINAL DIFF MANUAL
[2016-10-13] MEDS: traMADol HCL 50 MG TAB PO PRN (10:33)
[2016-10-13] MEDS: LEVOFLOXACIN 500 MG PREMIX INJ 100 ML IV SCH (10:33)
[2016-10-13 11:45] VITALS: BP 140/58; PULSE 86; RESP 18; TEMP 96.6; O2SAT 96
[2016-10-13] MEDS: ENOXAPARIN SODIUM 30 MG/0.3 ML SYRINGE SQ SCH (15:38)
[2016-10-13 16:00] VITALS: BP 146/68; PULSE 80; RESP 18; TEMP 96.6; O2SAT 95
--- NOTE | 2016-10-13 17:36 | HHI.PR ---
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 Comfortable, anxious to have surgery complete Objective Vital Signs Date Time Temp Pulse Resp B/P Pulse Ox O2 Delivery O2 Flow Rate FiO2 10/13/16 16:00 96.6 80 18 146/68 95 10/13/16 11:45 96.6 86 18 140/58 96 10/13/16 08:00 97.0 86 16 159/77 94 10/13/16 04:00 97.2 90 16 173/81 95 10/13/16 00:00 97.7 94 16 154/69 94 10/12/16 20:56 97.9 91 16 137/68 95 I/O 10/12/16 10/12/16 10/12/16 10/13/16 10/13/16 10/13/16 07:00 15:00 23:00 07:00 15:00 23:00 Intake Total 1540 ml 300 ml 200 ml 2474 ml Output Total 1100 ml 400 ml 300 ml 1200 ml Balance 440 ml -100 ml -100 ml 1274 ml Intake Oral 750 ml 300 ml 200 ml 600 ml IV Total 790 ml 1874 ml Output Urine Total 1100 ml 400 ml 300 ml 1200 ml # Voids 4 # Bowel Movements 2 2 0 0 1 Result Diagram: 10/13/1672110/13/16721 Objective Remarks Abdomen soft, mild distension, mildly tender Assessment and Plan Assessment and Plan To OR tomorrow afternoon All questions answered Fabiola Deleon MD Oct 13, 2016 17:36
[2016-10-13] MEDS: D5-LR + KCL 20 MEQ INJ 1,000 ML IV SCH ×2 (18:20→18:21)
[2016-10-13 20:00] VITALS: BP 175/75; PULSE 95; RESP 16; TEMP 98; O2SAT 96
[2016-10-14] VITALS (7 sets, daily range): BP systolic 119–172; BP diastolic 55–74; PULSE 88–117; RESP 16–18; TEMP 96.8–97.9; O2SAT 94–98
[2016-10-14] MEDS: SODIUM CHLOR 0.9% 1000 ML INJ 1,000 ML IV SCH ×2 (01:00→08:30)
[2016-10-14] MEDS: metroNIDAZOLE 500 MG INJ 100 ML IV SCH ×3 (02:35→18:23)
[2016-10-14] MEDS: D5-LR + KCL 20 MEQ INJ 1,000 ML IV SCH ×2 (06:39→08:30)
[2016-10-14] MEDS: traMADol HCL 50 MG TAB PO PRN (06:39)
[2016-10-14] MEDS: hydrALAZINE HCL 10 MG TAB PO PRN ×2 (06:40→15:20)
[2016-10-14] MEDS: SOD PHOSPHATE/SOD BIPHOSPHATE (ADULT) ENEMA 133ML RECTAL SCH (08:25)
[2016-10-14] MEDS: LOSARTAN 25 MG TAB PO SCH (08:25)
[2016-10-14] MEDS: ONDANSETRON HCL 4 MG/2 ML VIAL IV PRN (08:27)
[2016-10-14] MEDS: LEVOFLOXACIN 500 MG PREMIX INJ 100 ML IV SCH (08:29)
[2016-10-14] MEDS: ENOXAPARIN SODIUM 30 MG/0.3 ML SYRINGE SQ SCH (08:30)
[2016-10-14] MEDS: FERROUS SULFATE 325 MG (65 MG ELEMENTAL IRON) TAB PO SCH ×2 (08:31→21:00)
[2016-10-14] MEDS: MAGNESIUM CITRATE SOLN 300 ML BTL PO SCH (08:31)
[2016-10-14] MEDS: SODIUM CHLORIDE 0.9% FLUSH 10 ML FLUSH IV FLUSH SCH (08:31)
[2016-10-14] MEDS: MULTIVITAMINS/IRON/MINERALS CHEWABLE TAB CHEW SCH (08:31)
[2016-10-14] MEDS: ASCORBIC ACID 500 MG TAB PO SCH (08:32)
[2016-10-14] MEDS: PANTOPRAZOLE SOD 20 MG DELAYED RELEASE TAB PO SCH (08:32)
[2016-10-14] MEDS: POTASSIUM CHLORIDE 25 MEQ EFFERVESCENT TAB PO SCH (08:33)
[2016-10-14] MEDS: POLYETHYLENE GLYCOL 17 GM PKG PO SCH (08:33)
--- NOTE | 2016-10-14 10:58 | PD.ONC.PN ---
Subjective Subjective Remarks Patient resting in bed with her at bedside She is looking forward to getting her surgery over with today She denies any acute complaints Objective Data Date Time Temp Pulse Resp B/P Pulse Ox O2 Delivery O2 Flow Rate FiO2 10/14/16 08:00 96.8 96 16 146/73 94 10/14/16 04:00 96.9 92 16 142/68 96 10/14/16 00:00 97.1 89 16 172/74 94 10/13/16 20:00 98.0 95 16 175/75 96 10/13/16 16:00 96.6 80 18 146/68 95 10/13/16 11:45 96.6 86 18 140/58 96 10/14/16 10/14/16 10/14/16 07:00 15:00 23:00 Intake Total 200 ml Output Total 800 ml Balance -600 ml Result Diagram: 10/13/1672110/13/16721 Administered Medications Medications (Trade) Dose Ordered Sig/Sg Route PRN Reason Start Time Stop Time Status Last Admin Dose Admin Sodium Chloride (NS 1000 ml Inj) 1,000 ml @ 100 mls/hr Q10H IV 10/06/16 13:00 10/10/16 04:41 Sodium Chloride 2 ml 2 ml BID IV FLUSH 10/06/16 21:00 10/09/16 21:26 Levofloxacin/ Dextrose 100 ml @ 100 mls/hr Q24H IV 10/07/16 10:00 10/14/16 08:29 Metronidazole (Flagyl 500 Mg Inj) 100 ml @ 100 mls/hr Q8H IV 10/06/16 18:00 10/14/16 08:30 Ondansetron HCl (Zofran Inj) 4 mg Q6H PRN IV NAUSEA 10/06/16 14:15 10/14/16 08:27 Enoxaparin Sodium (Lovenox Inj) 30 mg Q24H SQ 10/06/16 15:00 10/13/16 15:38 Iron/Minerals/ Multivitamins (Flintstones Complete) 1 tab DAILY CHEW 10/07/16 09:00 10/13/16 09:26 Potassium Bicarb/ Potassium Chloride (K-Lyte Cl Eff) 25 meq DAILY PO 10/07/16 09:00 10/07/16 09:28 Pantoprazole Sodium (Protonix) 20 mg DAILY PO 10/07/16 09:00 10/14/16 08:32 Magnesium Citrate 150 ml 150 ml BID PO 10/06/16 21:00 10/14/16 08:31 Potassium Cl/ Dextrose/Lact Ringer's (D5-Lr + KCl 20 Meq Inj) 1,000 ml @ 100 mls/hr Q10H IV 10/06/16 16:45 10/14/16 06:39 Acetaminophen (Tylenol) 650 mg Q4H PRN PO fever >101 10/07/16 04:45 10/08/16 14:36 Enalaprilat (Vasotec Inj) 1.25 mg Q6H PRN IV PUSH sbp > 160 or dbp> 100 10/07/16 11:45 10/09/16 21:32 Losartan Potassium (Cozaar) 25 mg DAILY PO 10/09/16 09:00 10/14/16 08:25 Hydralazine HCl (Apresoline) 10 mg Q4HR PRN PO sbp> 160 or dbp > 100 10/08/16 12:15 10/14/16 06:40 Polyethylene Glycol (Miralax) 17 gm BID PO 10/08/16 21:00 10/14/16 08:33 Sodium Biphosphate/ Sodium Phosphate (Fleets Enema (Adult)) 133 ml DAILY RECTAL 10/09/16 12:30 10/14/16 08:25 Tramadol HCl (Ultram) 50 mg Q6H PRN PO PAIN SCALE 1 TO 5 10/10/16 09:00 10/14/16 06:39 Lorazepam (Ativan) 0.5 mg Q12H PRN PO anxiety 10/11/16 09:00 10/11/16 09:24 Objective Remarks GENERAL: Elderly female resting in bed. She appears comfortable. SKIN: Warm and dry. HEAD: Normocephalic. EYES: No injection or drainage. NECK: Supple, trachea midline. CARDIOVASCULAR: Regular rate and rhythm without murmurs. RESPIRATORY: Clear anteriorly. Breathing unlabored. GASTROINTESTINAL: Abdomen mildly tender. She has some mild distention to the lower quadrant EXTREMITIES: No cyanosis, or edema. NEUROLOGICAL: No obvious focal deficit. Awake, alert, and oriented x3. Assessment/Plan Problem List: (1) Liver mass, left lobe Status: Chronic Assessment Patient presents to emergency room with abdominal pain. Oncology consulted for a large liver mass with a possible sigmoid neoplasm Plan 1. The patient is undergoing surgery later on today with Dr. Fabiola Deleon. 2. We will see the patient once pathology is back 3. Please call us in the interim if there are any concerns Attending Statement The exam, history, and the medical decision-making described in the above note were completed with the assistance of the mid-level provider. I reviewed and agree with the findings presented. I attest that I had a [id number] encounter with the patient on the same day, and personally performed and documented my assessment and findings in the medical record. I have not seen the patient since the original consultation and returned to review with her and her the situation. Will reevaluate after surgery and hopefully if there is no metastatic disease outside of the liver mass will look towards attempting to remove this in the future as there is a finite approximately 25% cure rate for removing a single met. Her lesion is large and she is not young but it is worthwhile pursuing this. Batool Anderson Oct 14, 2016 10:58 Dilshad Vuong MD Oct 14, 2016 17:11
--- NOTE | 2016-10-14 11:40 | HHI.PR ---
Subjective Remarks In bed, had enema. Awaiting surgery, will be done in the afternoon. Has some pain in her abdomen, controlled by meds. Feels nauseated, did not vomit. Denies chest pain , sob, n/v/d/c. No fevers or chills. Feels a bit anxious. Objective Vitals Vital Signs Date Time Temp Pulse Resp B/P Pulse Ox O2 Delivery O2 Flow Rate FiO2 10/14/16 08:00 96.8 96 16 146/73 94 10/14/16 04:00 96.9 92 16 142/68 96 10/14/16 00:00 97.1 89 16 172/74 94 10/13/16 20:00 98.0 95 16 175/75 96 10/13/16 16:00 96.6 80 18 146/68 95 10/13/16 11:45 96.6 86 18 140/58 96 I/O 10/13/16 10/13/16 10/13/16 10/14/16 10/14/16 10/14/16 07:00 15:00 23:00 07:00 15:00 23:00 Intake Total 200 ml 2474 ml 200 ml Output Total 300 ml 1200 ml 800 ml Balance -100 ml 1274 ml -600 ml Intake Oral 200 ml 600 ml 200 ml IV Total 1874 ml Output Urine Total 300 ml 1200 ml 800 ml # Bowel Movements 0 1 1 Result Diagram: 10/13/1672110/13/16721 Imaging Last Impressions Abdomen/Pelvis CT 10/06/16711 Signed Impressions: Service Date/Time: Thursday, October 06, 2016 11:36 - CONCLUSION: 1. Thick-walled sigmoid colon raising possibility of colitis, diverticulitis or possible colonic neoplasm. Colonoscopy may be helpful for further evaluation if clinically indicated. 2. Persistent moderate ureteropelvicaliectasis on the left. 3. Stable left hepatic lobe mass measuring 7.6 x 7.4 cm. 4. Minimal ascites within the abdomen and pelvis. 5. Tiny right pleural effusion with adjacent compressive atelectasis. German Knutson MD Objective Remarks GENERAL: laying comfortable in bed in [facility] CARDIOVASCULAR: Regular rate and rhythm without murmurs, gallops, or rubs. RESPIRATORY: Breath sounds equal bilaterally. No accessory muscle use. GASTROINTESTINAL: Abdomen soft, non-tender, nondistended. MUSCULOSKELETAL: No cyanosis, or edema. BACK: Nontender without obvious deformity. No CVA tenderness. 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 Deleon with biopsy. Pending biopsy. Surgical oncologists consulted Dr. Davidson. Per his recommendation to proceed with surgery for primary tumor followed by systemic chemo if signs of significant metastatic disease. If no other disease identified outside of hepatic lesion, then separate surgical resection. Plan for OR on 10/14 Oncologist is following. HTN Labile. Due to component of anxiety. Continue with home regimen. Hypokalemia Most likely secondary to decreased oral intake and emesis. Replenish as needed. Anemia -iron deficient, starting on oral replacement as well as a one-time dose of Venofer. Anxiety-Situational. Ativan when necessary. Discharge Planning Pending improvement, surgical resection of tumor (plan for OR on 10/14/16) Discussed with the patient, nurse Mary Beth Malloy MD Oct 14, 2016 11:40
[2016-10-14] MEDS ORDERED: NEOSTIGMINE 3 MG/3 ML SYR IV ONE (12:00)
[2016-10-14] MEDS ORDERED: NORMOSOL R INJ 3,000 ML IV ONE (12:00)
[2016-10-14] MEDS ORDERED: ONDANSETRON HCL 4 MG/2 ML VIAL IV PUSH ONE (12:00)
[2016-10-14] MEDS ORDERED: PHENYLEPH/NS 1000 MCG/10 ML SYR IV ONE (12:00)
[2016-10-14] MEDS ORDERED: PROPOFOL 200 MG/20 ML AMP IV ONE (12:00)
[2016-10-14] MEDS ORDERED: ceFAZolin 2 GM PREMIX 50 ML ONE (17:50)
[2016-10-14] MEDS ORDERED: NALOXONE HCL 0.4 MG/ML AMP IV PRN (21:15)
[2016-10-14] MEDS ORDERED: Post-op Orders (for Pharmacy) MISC XX ONE (21:15)
[2016-10-14] MEDS ORDERED: D5-NS + KCL 20 MEQ INJ 1,000 ML IV SCH (21:15)
[2016-10-14] MEDS ORDERED: ACETAMINOPHEN/HYDROcodone 325 MG/5 MG TAB PO PRN ×2 (21:15)
[2016-10-14] MEDS ORDERED: POTASSIUM CHLOR 20 MEQ PREMIX 100 ML IV PRN (21:15)
[2016-10-14] MEDS ORDERED: POTASSIUM CHLOR 40 MEQ PREMIX 100 ML IV PRN (21:15)
[2016-10-14] MEDS ORDERED: SODIUM CHLORIDE 0.9% FLUSH 5 ML FLUSH IVF PRN (21:15)
[2016-10-14] MEDS ORDERED: ENALAPRILAT 2.5 MG/2 ML VIAL IV PRN (21:15)
[2016-10-14] MEDS ORDERED: ENALAPRILAT 1.25 MG/ML VIAL IV PRN (21:15)
[2016-10-14] MEDS ORDERED: diphenhydrAMINE HCL 50 MG/ML VIAL IV PRN (21:15)
[2016-10-14] MEDS ORDERED: ACETAMINOPHEN 325 MG TAB PO PRN (21:15)
[2016-10-14] MEDS: SODIUM CHLORIDE 0.9% FLUSH 5 ML FLUSH IVF SCH (21:15)
[2016-10-14] MEDS ORDERED: BENZOCAINE 6 MG/MENTHOL 10 MG LOZENGE BUCCAL PRN (21:15)
[2016-10-14] MEDS ORDERED: MORPHINE SULFATE 30 MG/30 ML PCA IV SCH (21:15)
[2016-10-14] MEDS ORDERED: *morphine SULFATE 8 MG/ML PERIprocedure ONLY ONE (21:27)
[2016-10-14] MEDS ORDERED: DO NOT ADM ANY ANTICOAGULANT DRUGS PRN (21:30)
[2016-10-14] MEDS ORDERED: *ONDANSETRON 4 MG VIAL PERIprocedural Use ONLY ONE (21:34)
[2016-10-14] MEDS ORDERED: fentaNYL CITRATE 250 MCG/5 ML AMP ONE (21:34)
[2016-10-14] MEDS: D5-NS + KCL 20 MEQ INJ 1,000 ML IV SCH (21:44)
[2016-10-14] MEDS ORDERED: MORPHINE SULFATE 4 MG/ML INJ ONE (21:47)
[2016-10-14] MEDS: PCA - TOTAL MG MORPHINE DELIVERED PER SHIFT SCH (22:00)
[2016-10-14 22:05] LABS: HEMATOCRIT 39.4 % (35.0-46.0); MEAN CELL VOLUME 76.2 FL (80.0-100.0); MEAN CORPUSCULAR HEMOGLOBIN 23.1 PG (27.0-34.0); MEAN CORPUSCULAR HGB CONC 30.2 % (32.0-36.0); PLATELET COUNT 283 TH/MM3 (150-450); RED BLOOD COUNT 5.16 MIL/MM3 (4.00-5.30); RED CELL DISTRIBUTION WIDTH 24.9 % (11.6-17.2); WHITE BLOOD COUNT 52.8 TH/MM3 (4.0-11.0)
[2016-10-14 22:13] LABS: HEMO FLAGS AUTO DIFF
--- NOTE | 2016-10-14 22:16 | MP ---
cc: CHIQUITA VILLARREAL,KIRBY ARIZA MD DATE OF SURGERY 10/14/16 PREOPERATIVE DIAGNOSIS Sigmoid colon cancer with liver metastases. POSTOPERATIVE DIAGNOSIS Sigmoid colon cancer with liver metastases. PROCEDURE Exploratory laparotomy Sigmoid resection with primary anastomosis. Small bowel resection. Takedown of the splenic flexure. SURGEON Eladio Deleon MD [employer]IST Alo ANESTHESIA General per ET tube ESTIMATED BLOOD LOSS 150 mL OPERATIVE INDICATIONS The patient is an 80 year old female with a sigmoid colon cancer with a large metastasis to the liver, and evidence of at least partial obstruction and significant symptoms. OPERATIVE FINDINGS The patient has what feels like a large mass in the left hepatic lobe. It is firm and is feels palpably larger than the measured 7.6 x 7.[address] scan. The right lobe of the liver is somewhat congested, but no palpable abnormalities were noted. The sigmoid colon has a near obstructin cancer in the mid sigmoid, with a small area of distal ileum attached to the tumor. In addition, the tumor was attached to the left pelvic sidewall. PROCEDURE IN DETAIL The patient was brought to the operating room and placed in the supine position. After induction of general anesthesia, the patient was placed in Jhonatan stirrups and all bony prominences were carefully padded. The skin of the anterior abdominal wall, as well as the perineal area. was then prepped and draped in the usual sterile fashion. A transverse incision was then made midway between the umbilicus and the symphysis pubis. Using electrocautery, dissection was carried down to the fascia of the anterior abdominal wall which was split the length of the skin incision. The fibers of the rectus abdominis muscle on the left were then divided using electrocautery, and the posterior peritoneum/posterior fascia/peritoneum was then opened. The remainder of the posterior incision as well as the rectus abdominis muscles on the right were then divided using electrocautery. Hemostasis was obtained with electrocautery. There was no sign of any significant ascites and the small bowel was not particularly dilated. The proximal colon was mildly dilated but not hugely. The sigmoid tumor was easily palpated in the mid sigmoid with quite a bit of healthy soft bowel distally. This was quite adherent to the left pelvic sidewall. In addition, a small loop of distal ileum was pulled down into the tumor mass as well. The wound was protected with clean laparotomy sponges and a wound protector, and the small bowel was then gently dissected free from the tumor. A note was made to check that area at the end of the case. The small bowel and the cecum was then retracted out and to the right. There was noted to be some adhesions of the small bowel to the lateral edge of the sigmoid mesentery and these were divided using electrocautery. This was continued, freeing them from the undersurface of the transverse mesocolon. The distal descending colon was then retracted to the right and the lateral peritoneal attachments were divided, trying to get down behind the tumor in this plane. However, I was not really able to get a good plane free of the ureter and so I elected to proceed with a more distal approach, keeping in mind that we were not going to be able to completely cure her with this large hepatic metastasis. We were eventually able to pry the tumor off of the left pelvic sidewall, but there was still scant visible and palpable tumor left growing into the left pelvic sidewall, presumably encasing the ureter. Eventually, we were able to pull the actual tumor up and out of the pelvis and the patient was noted to have an incredibly tight stricture at the level of the tumor. The perineum on the right was scored and dissection was continued posteriorly trying to get into a good plane and identify the ureter from this direction, but again we were not able to. With this and the fact that we were leaving some small but visible tumor on the left pelvic sidewall, I elected to proceed with a more distal resection, not attempting to take the base of the inferior mesenteric vessels. A site was chosen for distal division of the bowel at the rectosigmoid junction. The mesentery was cleared circumferentially and a TX 60 stapling device, blue load, was placed across the bowel. This was closed, fired and the proximal bowel was occluded with Ikra clamp. The bowel was then divided. The mesentery was then serially divided and ligated to above the level of the tumor, staying away from the edge of bowel but avoiding the posterior area to avoid damage to the ureter. A site was chosen for proximal division of the bowel, on the distal descending colon. The bowel was cleared of the mesentery circumferentially and a reload of the TX 60 stapling device was placed across the bowel at this leve. The remaining mesentery was divided and ligated using 0 Vicryl ties. The specimen was taken to a back table where it was later opened and the above findings were noted. At this point, I examined the pelvis and the distal rectum was quite healthy and pink and soft appearing and I did feel that if I could release the splenic flexure that I would be able to bring the bowel down and perform an anastomosis , and avoid a colostomy in this patient. The descending colon was then carefully dissected free from the lateral pelvic sidewall and posteriorly there was noted to be omentum wrapped over and around the descending colon. This was dissected free with electrocautery as well. She had a fairly high splenic flexure and so I elected to open the lesser sac and come at it from the medial portion. The omentum was pulled away from the transverse colon and dissection was continued in this plane until the lesser sac was entered. Dissection then continued along the edge of the transverse colon to the left, up and around the splenic flexure. This allowed better visualization and I was eventually able to free the posterior splenic flexure and free the mid transverse colon, distal transverse colon and descending colon. This allowed a lot of length to bring down nicely to the distal stapled end of the bowel. A site was chosen for proximal division of the remaining colon where it came down nicely to the bowel with plenty of extra length. The mesentery at this level was serially divided and ligated using 0 Vicryl ties. A purse string stapling device was placed across the proximal bowel and the distal bowel was occluded with a Kira clamp. The bowel was divided and this remaining specimen was sent with the previous specimen. After gentle digital dilatation of the anus, the 29 EEA stapler was advanced through the anus and up to the rectal stump. The anvil from the 29 EEA stapler was placed into the cut end of the bowel, and the previously placed purse string suture was then secured. The spike from the stapler was then advanced just anterior to the staple line and the anvil was into the spike, being careful that the bowel was not twisted. The stapler was then gently closed, held for 30 seconds. It lay in a nice orientation without tension. It was fired and removed. The anastomosis appeared pink and healthy circumferentially and there was no tension on the anastomosis. Both anastomotic rings appeared to be complete. A small amount of warm normal saline was placed into the pelvis and air was insufflated into the rectum until gentle tension was noted in the anastomosis and no sign of any leakage noted. Air was desufflated to the extent possible and the saline was suctioned out of the pelvis. There was noted to be some oozing from the left pelvic sidewall tumor bed and that area was fulgurated with electrocautery. The bowel lay in a nice orientation without tension. Attention was then turned to the small bowel. After evaluating the area of small bowel that had been pulled down into the tumor, I felt it was prudent to remove this. The mesentery was cleared proximally and distally to the area of concern and a XIOMARA blue load was placed across the bowel proximally and distally. The intervening mesentery was divided and ligated using 0 Vicryl ties. Antimesenteric corners of the staple line were then removed, and one limb of the gastrointestinal stapler was placed down each limb of the bowel. This was closed along the anti-mesenteric border, fired, and removed, thus creating an enteroenterotomy. The resulting enterotomy was closed transversely using the TA 60 stapling device. A simple stay suture was placed at the distal end of the anastomosis using 3-0 Vicryl. The anastomosis was palpated and found to be widely patent. The peritoneal cavity was then copiously irrigated with warm normal saline and all dissection beds were examined. The only sign of significant bleeding was a small amount of continued oozing where we had taken the tumor off the tumor bed in the left pelvic sidewall. A small piece of hemostatic snow was placed in that area and the remaining omentum was wrapped around the anastomosis. The small bowel was returned to the peritoneal cavity and lay in a nice orientation. The posterior fascia of the anterior abdominal wall was closed in a running fashion using looped #1 PDS and the anterior fascia of the anterior abdominal wall was closed in a running fashion using looped #1 PDS. The wound was copiously irrigated with warm normal saline and the skin was closed in a running subcuticular fashion using 3-0 Vicryl. Sterile dressing was then applied. All sponge, needle and instrument counts were correct and the patient was returned to the Post Anesthesia Care Unit in stable condition. MD TAVIA Ramos/ /9:20 PM /9:45 PM MTDPing
[2016-10-14 22:34] LABS: BICARBONATE 26.5 MEQ/L (21.0-32.0)
[2016-10-14 22:50] LABS: BANDS 12 % (0-6); METAMYELOCYTES 2 % (0-1); MYELOCYTES 2 % (0-0); NEUTROPHIL # MANUAL DIFF 51.2 TH/MM3 (1.8-7.7); POLYS (SEG NEUTROPHILS) 81 % (16-70); WBC DIFF SAMPLE 100
[2016-10-14 22:51] LABS: SCAN/DIFF FINAL DIFF MANUAL
[2016-10-14 22:52] LABS: PLATELET ESTIMATE SMEAR NORMAL (NORMAL); PLATELET MORPHOLOGY NORMAL (NORMAL); TOXIC GRANULATION 1+ (NORMAL); TOXIC VACUOLATION PRESENT (NONE SEEN)
[2016-10-14 22:53] LABS: ACANTHOCYTES OCC (NORMAL); KERATOCYTES OCC (NORMAL)
[2016-10-14] MEDS: KETOROLAC TROMETHAMINE 30 MG/ML (IVP) VIAL IVP SCH (23:48)
[2016-10-15] VITALS (25 sets, daily range): BP systolic 93–128; BP diastolic 47–75; PULSE 80–144; RESP 16–18; TEMP 97.4–98.1; O2SAT 95–99
[2016-10-15] MEDS: metroNIDAZOLE 500 MG INJ 100 ML IV SCH ×3 (02:00→17:00)
[2016-10-15] MEDS: ONDANSETRON HCL 4 MG/2 ML VIAL IV PRN ×2 (02:02→07:56)
[2016-10-15] MEDS: KETOROLAC TROMETHAMINE 30 MG/ML (IVP) VIAL IVP SCH ×4 (04:22→21:14)
[2016-10-15] MEDS: D5-NS + KCL 20 MEQ INJ 1,000 ML IV SCH ×4 (04:32→21:17)
[2016-10-15] MEDS: PCA - TOTAL MG MORPHINE DELIVERED PER SHIFT SCH ×2 (06:00→14:00)
[2016-10-15 06:10] LABS: AUTOMATED NEUTROPHIL # 50.2 TH/MM3 (1.8-7.7); BASOPHIL # 0.1 TH/MM3 (0-0.2); BASOPHIL % 0.2 % (0.0-2.0); HEMATOCRIT 35.5 % (35.0-46.0); LYMPH % 3.7 % (9.0-44.0); LYMPHOCYTE # 2.1 TH/MM3 (1.0-4.8); MEAN CELL VOLUME 75.7 FL (80.0-100.0); MEAN CORPUSCULAR HEMOGLOBIN 23.9 PG (27.0-34.0); MEAN CORPUSCULAR HGB CONC 31.5 % (32.0-36.0); MONO % 10.1 % (0.0-8.0); PLATELET COUNT 290 TH/MM3 (150-450); RED BLOOD COUNT 4.69 MIL/MM3 (4.00-5.30); WHITE BLOOD COUNT 58.4 TH/MM3 (4.0-11.0)
[2016-10-15 06:18] LABS: HEMO FLAGS AUTO DIFF
[2016-10-15 06:33] LABS: POTASSIUM 4.1 MEQ/L (3.5-5.1)
[2016-10-15 06:45] LABS: BANDS 5 % (0-6); EOSINOPHILS 1 % (0-4); METAMYELOCYTES 3 % (0-1); MYELOCYTES 4 % (0-0); NEUTROPHIL # MANUAL DIFF 50.8 TH/MM3 (1.8-7.7); POLYS (SEG NEUTROPHILS) 73 % (16-70); PROMYELOCYTES 2 % (0-0); SCAN/DIFF FINAL DIFF MANUAL; WBC DIFF SAMPLE 100
[2016-10-15 06:46] LABS: ACANTHOCYTES OCC (NORMAL); PLATELET ESTIMATE SMEAR NORMAL (NORMAL); TOXIC VACUOLATION PRESENT (NONE SEEN)
[2016-10-15 06:47] LABS: PLATELET MORPHOLOGY NORMAL (NORMAL)
[2016-10-15 06:48] LABS: SPHEROCYTES OCC (NORMAL)
[2016-10-15] MEDS: PANTOPRAZOLE SODIUM 40 MG VIAL IVP SCH (07:55)
[2016-10-15] MEDS: SODIUM CHLORIDE 0.9% FLUSH 5 ML FLUSH IVF SCH ×2 (07:56→21:00)
[2016-10-15] MEDS: LOSARTAN 25 MG TAB PO SCH (07:59)
[2016-10-15] MEDS: POTASSIUM CHLORIDE 25 MEQ EFFERVESCENT TAB PO SCH (07:59)
[2016-10-15] MEDS: FERROUS SULFATE 325 MG (65 MG ELEMENTAL IRON) TAB PO SCH ×2 (07:59→21:00)
--- NOTE | 2016-10-15 09:25 | HHI.PR ---
Subjective Remarks Says feels less pain. Nausea is improving. No vomiting. Did not pass gas did not have a bowel movement. Denies fever or chills. Objective Vitals Vital Signs Date Time Temp Pulse Resp B/P Pulse Ox O2 Delivery O2 Flow Rate FiO2 10/15/16 06:00 98 10/15/16 06:00 16 10/15/16 05:00 111 10/15/16 04:00 110 10/15/16 03:00 112 10/15/16 03:00 98.1 120 18 103/60 99 10/15/16 02:00 110 10/15/16 01:00 110 10/15/16 00:00 106 10/14/16 23:00 106 10/14/16 23:00 97.9 104 18 129/58 98 10/14/16 22:17 18 10/14/16 22:15 96 13 103/56 98 Nasal Cannula 2 10/14/16 22:12 13 10/14/16 22:00 97.5 117 18 119/55 97 10/14/16 22:00 92 13 102/51 98 Nasal Cannula 2 10/14/16 22:00 18 10/14/16 21:45 91 19 99/59 98 Nasal Cannula 2 10/14/16 21:30 87 22 109/52 99 Nasal Cannula 2 10/14/16 21:20 98.4 100 21 134/57 99 Nasal Cannula 2 10/14/16 16:00 97.6 88 18 152/70 95 10/14/16 12:00 97.1 94 18 164/69 94 I/O 10/14/16 10/14/16 10/14/16 10/15/16 10/15/16 10/15/16 07:00 15:00 23:00 07:00 15:00 23:00 Intake Total 200 ml 360 ml 2600 ml 638 ml Output Total 800 ml 800 ml 400 ml Balance -600 ml -440 ml 2600 ml 238 ml Intake Oral 200 ml 360 ml 0 ml IV Total 638 ml Other 2600 ml Output Urine Total 800 ml 800 ml 300 ml Emesis 100 ml # Voids 3 # Bowel Movements 1 2 0 Result Diagram: 10/15/16 0439 10/15/16 0439 Imaging Last Impressions Abdomen/Pelvis CT 10/06/16711 Signed Impressions: Service Date/Time: Thursday, October 06, 2016 11:36 - CONCLUSION: 1. Thick-walled sigmoid colon raising possibility of colitis, diverticulitis or possible colonic neoplasm. Colonoscopy may be helpful for further evaluation if clinically indicated. 2. Persistent moderate ureteropelvicaliectasis on the left. 3. Stable left hepatic lobe mass measuring 7.6 x 7.4 cm. 4. Minimal ascites within the abdomen and pelvis. 5. Tiny right pleural effusion with adjacent compressive atelectasis. German Knutson MD Objective Remarks GENERAL: laying comfortable in bed in NAD CARDIOVASCULAR: Regular rate and rhythm without murmurs, gallops, or rubs. RESPIRATORY: Breath sounds equal bilaterally. No accessory muscle use. GASTROINTESTINAL: Abdomen soft, non-tender, nondistended. MUSCULOSKELETAL: No cyanosis, or edema. BACK: Nontender without obvious deformity. No CVA tenderness. 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 Deleon with biopsy. Pending biopsy. Surgical oncologists consulted Dr. Davidson. Per his recommendation to proceed with surgery for primary tumor followed by systemic chemo if signs of significant metastatic disease. If no other disease identified outside of hepatic lesion, then separate surgical resection. Sigmoid colon cancer with liver metastases S/P Exploratory laparotomy with sigmoid resection with primary anastomosis and small bowel resection as well as takedown of the hepatic flexure by Dr Eladio Deleon Oncologist is following. HTN Labile. Due to component of anxiety. Continue with home regimen. Hypokalemia Most likely secondary to decreased oral intake and emesis. Replenish as needed. Anemia -iron deficient, starting on oral replacement as well as a one-time dose of Venofer. Anxiety-Situational. Ativan when necessary. Discharge Planning Pending improvement, surgical resection of tumor (plan for OR on 10/14/16) Discussed with the patient, nurse Mary Beth Malloy MD Oct 15, 2016 09:25
[2016-10-15] MEDS: LEVOFLOXACIN 500 MG PREMIX INJ 100 ML IV SCH (10:28)
--- NOTE | 2016-10-15 14:55 | HHI.PR ---
Subjective Remarks POD#1 s/p ex lap, ismael, lar - Sigmoid Colon cancer with mets to liver Nausea improving Objective Vital Signs Date Time Temp Pulse Resp B/P Pulse Ox O2 Delivery O2 Flow Rate FiO2 10/15/16 14:02 81 10/15/16 14:00 16 10/15/16 13:07 80 10/15/16 12:09 85 10/15/16 11:30 16 10/15/16 11:27 82 10/15/16 11:27 97.7 83 16 93/47 98 10/15/16 10:13 97 Nasal Cannula 2.00 10/15/16 10:03 83 10/15/16 09:00 87 10/15/16 08:15 97.4 144 18 128/75 96 10/15/16 08:15 97 10/15/16 06:00 98 10/15/16 06:00 16 10/15/16 05:00 111 10/15/16 04:00 110 10/15/16 03:00 112 10/15/16 03:00 98.1 120 18 103/60 99 10/15/16 02:00 110 10/15/16 01:00 110 10/15/16 00:00 106 10/14/16 23:00 106 10/14/16 23:00 97.9 104 18 129/58 98 10/14/16 22:17 18 10/14/16 22:15 96 13 103/56 98 Nasal Cannula 2 10/14/16 22:12 13 10/14/16 22:00 97.5 117 18 119/55 97 10/14/16 22:00 92 13 102/51 98 Nasal Cannula 2 10/14/16 22:00 18 10/14/16 21:45 91 19 99/59 98 Nasal Cannula 2 10/14/16 21:30 87 22 109/52 99 Nasal Cannula 2 10/14/16 21:20 98.4 100 21 134/57 99 Nasal Cannula 2 10/14/16 16:00 97.6 88 18 152/70 95 I/O 10/14/16 10/14/16 10/14/16 10/15/16 10/15/16 10/15/16 07:00 15:00 23:00 07:00 15:00 23:00 Intake Total 200 ml 360 ml 2600 ml 638 ml Output Total 800 ml 800 ml 400 ml Balance -600 ml -440 ml 2600 ml 238 ml Intake Oral 200 ml 360 ml 0 ml IV Total 638 ml Other 2600 ml Output Urine Total 800 ml 800 ml 300 ml Emesis 100 ml # Voids 3 # Bowel Movements 1 2 0 Result Diagram: 10/15/16 0439 10/15/16 0439 Objective Remarks Abdomen soft, mild distension, mildly tender Assessment and Plan Assessment and Plan Overall, doing well Fluid bolus for low UOP Significant leukocytosis No fever, no tachycardia Continue close observation Fabiola Deleon MD Oct 15, 2016 14:55
[2016-10-15] MEDS ORDERED: SODIUM CHLORID 0.9% 500 ML INJ 500 ML IV ONE (16:00)
[2016-10-15] MEDS: HYDROmorphone HCL PF 1 MG/ML VIAL IV PUSH PRN ×2 (16:58→22:37)
[2016-10-15] MEDS: HEPARIN SODIUM - SQ 10,000 UNITS/ML VIAL SQ SCH (21:14)
[2016-10-15] MEDS: FUROSEMIDE 20 MG/2 ML VIAL IV PUSH SCH (21:15)
[2016-10-16] VITALS (26 sets, daily range): BP systolic 122–141; BP diastolic 48–58; PULSE 80–110; RESP 16–18; TEMP 97.3–98; O2SAT 94–97
[2016-10-16 01:44] LABS: AUTOMATED NEUTROPHIL # 22.1 TH/MM3 (1.8-7.7); BASOPHIL # 0.1 TH/MM3 (0-0.2); BASOPHIL % 0.4 % (0.0-2.0); EOSINOPHIL % 0.1 % (0.0-4.0); HEMATOCRIT 31.5 % (35.0-46.0); LYMPH % 5.3 % (9.0-44.0); LYMPHOCYTE # 1.5 TH/MM3 (1.0-4.8); MEAN CELL VOLUME 77.2 FL (80.0-100.0); MEAN CORPUSCULAR HEMOGLOBIN 23.9 PG (27.0-34.0); MONO % 14.6 % (0.0-8.0); NEUT % 79.6 % (16.0-70.0); PLATELET COUNT 229 TH/MM3 (150-450); RED BLOOD COUNT 4.08 MIL/MM3 (4.00-5.30); RED CELL DISTRIBUTION WIDTH 24.8 % (11.6-17.2); WHITE BLOOD COUNT 27.7 TH/MM3 (4.0-11.0)
[2016-10-16 01:45] LABS: HEMO FLAGS AUTO DIFF
[2016-10-16] MEDS: HYDROmorphone HCL PF 1 MG/ML VIAL IV PUSH PRN ×2 (02:52→07:52)
[2016-10-16 03:53] LABS: BANDS 8 % (0-6); METAMYELOCYTES 1 % (0-1); NEUTROPHIL # MANUAL DIFF 23.5 TH/MM3 (1.8-7.7); POLYS (SEG NEUTROPHILS) 76 % (16-70); SCAN/DIFF FINAL DIFF MANUAL; WBC DIFF SAMPLE 100
[2016-10-16 03:54] LABS: PLATELET ESTIMATE SMEAR NORMAL (NORMAL); PLATELET MORPHOLOGY NORMAL (NORMAL)
[2016-10-16 03:56] LABS: KERATOCYTES OCC (NORMAL); TARGET CELLS 1+ (NORMAL)
[2016-10-16] MEDS: KETOROLAC TROMETHAMINE 30 MG/ML (IVP) VIAL IVP SCH ×4 (04:35→21:04)
[2016-10-16] MEDS: D5-NS + KCL 20 MEQ INJ 1,000 ML IV SCH ×2 (04:35→10:04)
[2016-10-16 07:53] LABS: AUTOMATED NEUTROPHIL # 20.5 TH/MM3 (1.8-7.7); BASOPHIL # 0.1 TH/MM3 (0-0.2); BASOPHIL % 0.3 % (0.0-2.0); EOSINOPHIL % 0.1 % (0.0-4.0); HEMATOCRIT 31.1 % (35.0-46.0); LYMPH % 6.3 % (9.0-44.0); LYMPHOCYTE # 1.6 TH/MM3 (1.0-4.8); MEAN CELL VOLUME 77.6 FL (80.0-100.0); MEAN CORPUSCULAR HGB CONC 32.2 % (32.0-36.0); NEUT % 78.3 % (16.0-70.0); PLATELET COUNT 187 TH/MM3 (150-450); RED CELL DISTRIBUTION WIDTH 25.4 % (11.6-17.2); WHITE BLOOD COUNT 26.1 TH/MM3 (4.0-11.0)
[2016-10-16] MEDS: PANTOPRAZOLE SODIUM 40 MG VIAL IVP SCH (07:54)
[2016-10-16] MEDS: FERROUS SULFATE 325 MG (65 MG ELEMENTAL IRON) TAB PO SCH (07:54)
[2016-10-16] MEDS: LOSARTAN 25 MG TAB PO SCH (07:54)
[2016-10-16] MEDS: FUROSEMIDE 20 MG/2 ML VIAL IV PUSH SCH ×2 (07:55→21:04)
[2016-10-16] MEDS: HEPARIN SODIUM - SQ 10,000 UNITS/ML VIAL SQ SCH ×2 (07:55→21:04)
[2016-10-16] MEDS: POTASSIUM CHLORIDE 25 MEQ EFFERVESCENT TAB PO SCH (07:56)
[2016-10-16] MEDS: SODIUM CHLORIDE 0.9% FLUSH 5 ML FLUSH IVF SCH ×2 (07:56→21:00)
[2016-10-16 07:57] LABS: HEMO FLAGS AUTO DIFF
[2016-10-16] MEDS: ONDANSETRON HCL 4 MG/2 ML VIAL IV PRN (08:05)
[2016-10-16 08:10] LABS: BICARBONATE 24.4 MEQ/L (21.0-32.0); POTASSIUM 4.2 MEQ/L (3.5-5.1)
[2016-10-16 08:28] LABS: CALCIUM-PROTEIN CORRECTED 8.6 MG/DL (8.5-10.1)
--- NOTE | 2016-10-16 08:45 | HHI.PR ---
Subjective Remarks Less nausea today. She did vomit yesterday green black vomitus. No vomiting today . Tolerates liquid diet. Says she did not pass gas nor BM. Feels bloated and has some abdominal pain/cramps more than yesterday. No fever or chills./ Patient says she is coughing however no fleam. Encourage IS. No sob, palpitations. No problems with urination. Objective Vitals Vital Signs Date Time Temp Pulse Resp B/P Pulse Ox O2 Delivery O2 Flow Rate FiO2 10/16/16 06:00 88 10/16/16 05:00 82 10/16/16 04:00 82 10/16/16 03:00 98.0 94 18 122/48 94 10/16/16 03:00 82 10/16/16 02:00 82 10/16/16 01:00 80 10/16/16 00:00 82 10/15/16 23:00 81 10/15/16 23:00 98.0 84 18 123/56 95 10/15/16 22:00 82 10/15/16 21:00 84 10/15/16 20:12 98 10/15/16 20:00 82 10/15/16 19:00 98.0 82 18 117/50 96 10/15/16 19:00 82 10/15/16 18:20 80 10/15/16 17:28 16 10/15/16 17:04 85 10/15/16 16:27 81 10/15/16 16:00 16 10/15/16 15:30 82 10/15/16 15:30 98.0 87 16 115/47 97 10/15/16 14:02 81 10/15/16 14:00 16 10/15/16 13:07 80 10/15/16 12:09 85 10/15/16 11:27 82 10/15/16 11:27 97.7 83 16 93/47 98 10/15/16 10:13 97 Nasal Cannula 2.00 10/15/16 10:03 83 10/15/16 09:00 87 I/O 10/15/16 10/15/16 10/15/16 10/16/16 10/16/16 10/16/16 07:00 15:00 23:00 07:00 15:00 23:00 Intake Total 638 ml 2400 ml 3842 ml Output Total 400 ml 725 ml 950 ml Balance 238 ml 1675 ml 2892 ml Intake Oral 0 ml 100 ml 240 ml IV Total 638 ml 2300 ml 3602 ml Output Urine Total 300 ml 725 ml 950 ml Stool Total 0 ml Emesis 100 ml # Bowel Movements 0 0 Result Diagram: 10/16/1630 10/16/16 0630 Imaging Last Impressions Abdomen/Pelvis CT 10/06/16 0712 Signed Impressions: Service Date/Time: Thursday, October 06, 2016 11:36 - CONCLUSION: 1. Thick-walled sigmoid colon raising possibility of colitis, diverticulitis or possible colonic neoplasm. Colonoscopy may be helpful for further evaluation if clinically indicated. 2. Persistent moderate ureteropelvicaliectasis on the left. 3. Stable left hepatic lobe mass measuring 7.6 x 7.4 cm. 4. Minimal ascites within the abdomen and pelvis. 5. Tiny right pleural effusion with adjacent compressive atelectasis. German Knutson MD Objective Remarks GENERAL: laying comfortable in bed in NAD CARDIOVASCULAR: Regular rate and rhythm without murmurs, gallops, or rubs. RESPIRATORY: Breath sounds equal bilaterally. No accessory muscle use. GASTROINTESTINAL: Abdomen soft, non-tender, nondistended. MUSCULOSKELETAL: No cyanosis, or edema. BACK: Nontender without obvious deformity. No CVA tenderness. 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 Deleon with biopsy. Pending biopsy. Surgical oncologists consulted Dr. Davidson. Per his recommendation to proceed with surgery for primary tumor followed by systemic chemo if signs of significant metastatic disease. If no other disease identified outside of hepatic lesion, then separate surgical resection. Sigmoid colon cancer with liver metastases S/P Exploratory laparotomy with sigmoid resection with primary anastomosis and small bowel resection as well as takedown of the hepatic flexure by Dr Eladio Deleon Oncologist is following. Leukocytosis, without signs of infection. Poss reactive. Will monitor. Will check CXR and UA HTN Labile. Due to component of anxiety. Continue with home regimen. Hold BP meds if low BP. Received 1L bolus NS IVF as noted with low UOP. patient was also with decreased intake as NPO for surgery. UOP is better, BP is better controlled. Monitor. Hypokalemia Most likely secondary to decreased oral intake and emesis. Replenish as needed. Anemia -iron deficient, starting on oral replacement as well as a one-time dose of Venofer. Anxiety-Situational. Ativan when necessary. Discharge Planning Pending improvement, surgical resection of tumor (plan for OR on 10/14/16) Discussed with the patient, nurse Mary Beth Malloy MD Oct 16, 2016 08:44
--- NOTE | 2016-10-16 09:04 | HHI.PR ---
Subjective Remarks C/R Surg POD afebrile, VSS UO good no stool Objective - Vital Signs Date Time Temp Pulse Resp B/P Pulse Ox O2 Delivery O2 Flow Rate FiO2 10/16/16 06:00 88 10/16/16 03:00 98.0 18 122/48 94 10/15/16 10:13 Nasal Cannula 2.00 Result Diagram: 10/16/16 0630 10/16/16 0630 Objective Remarks PE alert Abd - soft, wound dry, min tympany A/P Assessment and Plan Imp: adv diet PT change pain Ralph Brewster MD Oct 16, 2016 09:04
[2016-10-16 09:28] LABS: BANDS 8 % (0-6); MYELOCYTES 1 % (0-0); NEUTROPHIL # MANUAL DIFF 22.7 TH/MM3 (1.8-7.7); PLATELET ESTIMATE SMEAR NORMAL (NORMAL); PLATELET MORPHOLOGY NORMAL (NORMAL); POLYS (SEG NEUTROPHILS) 78 % (16-70); SCAN/DIFF FINAL DIFF MANUAL; WBC DIFF SAMPLE 100
[2016-10-16 09:29] LABS: KERATOCYTES OCC (NORMAL); TARGET CELLS 1+ (NORMAL)
[2016-10-16] MEDS: LEVOFLOXACIN 500 MG PREMIX INJ 100 ML IV SCH (10:03)
--- NOTE | 2016-10-16 10:55 | RADRPT ---
EXAM DATE/TIME: 10/16/2016 10:30 [facility] COMPARISON: CHEST SINGLE AP, September 20, 2016, 17:54. INDICATIONS : Cough. Congestion for 2 days. MEDICAL HISTORY : Chronic obstructive pulmonary disease. Hypertension SURGICAL HISTORY : Appendectomy. Cholecystectomy. Hysterectomy. ENCOUNTER: Subsequent ACUITY: 2 days PAIN SCORE: 1/10 LOCATION: Bilateral upper chest FINDINGS: Portable AP view of the chest demonstrates a normal-sized cardiac silhouette. No effusion, consolidat ion, or pneumothorax is visualized. The bones and soft tissues demonstrate no acute abnormality. Lung s are underinflated. CONCLUSION: No acute cardiopulmonary abnormality is identified. Demetrius Selby MD on October 16, 2016 at 10:53 Board Certified Radiologist. This report was verified electronically.
[2016-10-16 12:38] LABS: BACTERIA, URINE RARE /hpf; BLOOD, URINE TRACE (NEG); COMMENT (UR) CULT NOT INDICATED; CULTURE IF INDICATED CULT NOT INDICATED; GLUCOSE,URINE NEG (NEG); HYALINE CAST, URINE 5 /lpf (RARE); KETONE, URINE NEG (NEG); MUCUS URINE FEW /lpf (OCC); NITRITE,URINE NEG (NEG); URINE COLOR YELLOW (YELLW/STRAW)
[2016-10-16] MEDS ORDERED: oxyCODONE HCL ORAL CONC 20 MG/ML SYRINGE PO PRN (13:30)
[2016-10-16] MEDS: traMADol HCL 50 MG TAB PO PRN ×2 (14:10→21:11)
[2016-10-17] VITALS (26 sets, daily range): BP systolic 134–158; BP diastolic 59–71; PULSE 85–118; RESP 18–19; TEMP 97.7–98.7; O2SAT 96–97
[2016-10-17] MEDS: KETOROLAC TROMETHAMINE 30 MG/ML (IVP) VIAL IVP SCH ×4 (04:53→21:04)
[2016-10-17] MEDS: traMADol HCL 50 MG TAB PO PRN (04:57)
[2016-10-17] MEDS: D5-NS + KCL 20 MEQ INJ 1,000 ML IV SCH ×2 (08:14→21:34)
[2016-10-17] MEDS: SODIUM CHLORIDE 0.9% FLUSH 5 ML FLUSH IVF SCH ×2 (09:00→21:00)
[2016-10-17 09:34] LABS: BICARBONATE 22.4 MEQ/L (21.0-32.0)
[2016-10-17] MEDS ORDERED: ACETAMINOPHEN 1000 MG/100 ML VIAL IV PRN (09:45)
--- NOTE | 2016-10-17 09:47 | HHI.PR ---
Subjective Remarks C/R Surg POD afebrile, VSS UO good no stool c/o pain Objective - Vital Signs Date Time Temp Pulse Resp B/P Pulse Ox O2 Delivery O2 Flow Rate FiO2 10/17/16 07:50 98.7 95 18 155/71 96 10/16/16 12:05 21 10/15/16 10:13 Nasal Cannula 2.00 Result Diagram: 10/16/16 0630 10/17/16 0900 Objective Remarks PE alert Abd - soft, wound dry, min tympany A/P Assessment and Plan Imp: adv diet PT change pain meds Ralph Sparrow MD Oct 17, 2016 09:47
[2016-10-17] MEDS: LOSARTAN 25 MG TAB PO SCH (10:09)
[2016-10-17] MEDS: POTASSIUM CHLORIDE 25 MEQ EFFERVESCENT TAB PO SCH (10:09)
[2016-10-17] MEDS: FUROSEMIDE 20 MG/2 ML VIAL IV PUSH SCH ×2 (10:10→21:04)
[2016-10-17] MEDS: HEPARIN SODIUM - SQ 10,000 UNITS/ML VIAL SQ SCH ×2 (10:10→21:04)
[2016-10-17] MEDS: PANTOPRAZOLE SODIUM 40 MG VIAL IVP SCH (10:10)
[2016-10-17] MEDS: LEVOFLOXACIN 500 MG PREMIX INJ 100 ML IV SCH (10:22)
--- NOTE | 2016-10-17 12:40 | HHI.PR ---
Subjective Remarks In the chair, tolerating full liquid diet. No nausea. Pain is better controlled. Did not pass gas or BM yet. Feels bloated. No fever or chills. She is not coughing. Says she is using IS Objective Vitals Vital Signs Date Time Temp Pulse Resp B/P Pulse Ox O2 Delivery O2 Flow Rate FiO2 10/17/16 07:50 98.7 95 18 155/71 96 10/17/16 06:00 118 10/17/16 05:00 95 10/17/16 04:00 90 10/17/16 04:00 97.7 112 18 153/60 97 10/17/16 03:00 85 10/17/16 02:00 90 10/17/16 01:00 96 10/17/16 00:00 97 10/17/16 00:00 98.0 97 18 147/64 96 10/16/16 23:00 90 10/16/16 22:00 92 10/16/16 21:00 97 10/16/16 20:00 98.0 92 16 141/58 96 10/16/16 20:00 94 10/16/16 19:00 92 10/16/16 18:29 95 10/16/16 17:00 86 10/16/16 16:00 92 10/16/16 15:00 93 10/16/16 15:00 97.6 95 16 123/52 96 10/16/16 14:00 88 10/16/16 13:00 98 I/O 10/16/16 10/16/16 10/16/16 10/17/16 10/17/16 10/17/16 07:00 15:00 23:00 07:00 15:00 23:00 Intake Total 3842 ml 600 ml 1140 ml Output Total 950 ml 950 ml 1000 ml Balance 2892 ml -350 ml 140 ml Intake Oral 240 ml 600 ml 240 ml IV Total 3602 ml 900 ml Output Urine Total 950 ml 950 ml 1000 ml # Bowel Movements 0 0 Result Diagram: 10/16/16 0630 10/17/16 0900 Imaging Last Impressions Chest X-Ray 10/16/16 0000 Signed Impressions: Service Date/Time: Sunday, October 16, 2016 10:30 - CONCLUSION: No acute cardiopulmonary abnormality is identified. Demetrius Selby MD Abdomen/Pelvis CT 10/06/16 0712 Signed Impressions: Service Date/Time: Thursday, October 06, 2016 11:36 - CONCLUSION: 1. Thick-walled sigmoid colon raising possibility of colitis, diverticulitis or possible colonic neoplasm. Colonoscopy may be helpful for further evaluation if clinically indicated. 2. Persistent moderate ureteropelvicaliectasis on the left. 3. Stable left hepatic lobe mass measuring 7.6 x 7.4 cm. 4. Minimal ascites within the abdomen and pelvis. 5. Tiny right pleural effusion with adjacent compressive atelectasis. German Knutson MD Objective Remarks GENERAL: laying comfortable in bed in NAD CARDIOVASCULAR: Regular rate and rhythm without murmurs, gallops, or rubs. RESPIRATORY: Breath sounds equal bilaterally. No accessory muscle use. GASTROINTESTINAL: Abdomen soft, non-tender, nondistended. MUSCULOSKELETAL: No cyanosis, or edema. BACK: Nontender without obvious deformity. No CVA tenderness. 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 Deleon with biopsy. Pending biopsy. Surgical oncologists consulted Dr. Davidson. Per his recommendation to proceed with surgery for primary tumor followed by systemic chemo if signs of significant metastatic disease. If no other disease identified outside of hepatic lesion, then separate surgical resection. Sigmoid colon cancer with liver metastases S/P Exploratory laparotomy with sigmoid resection with primary anastomosis and small bowel resection as well as takedown of the hepatic flexure by Dr Eladio Deleon Oncologist is following. Advance diet as tolerated. Leukocytosis, without signs of infection. Poss reactive. Will monitor. Will check CXR and UA negative for infection. Encourage IS. HTN Labile. Due to component of anxiety. Continue with home regimen. Hold BP meds if low BP. Received 1L bolus NS IVF as noted with low UOP. patient was also with decreased intake as NPO for surgery. UOP is better, BP is better controlled. Monitor. Hypokalemia Most likely secondary to decreased oral intake and emesis. Replenish as needed. Anemia -iron deficient, starting on oral replacement as well as a one-time dose of Venofer. Anxiety-Situational. Ativan when necessary. Discharge Planning Pending improvement, surgical resection of tumor (plan for OR on 10/14/16) Discussed with the patient, nurse Mary Beth Malloy MD Oct 17, 2016 12:39
[2016-10-17 13:11] LABS: AUTOMATED NEUTROPHIL # 18.4 TH/MM3 (1.8-7.7); BASOPHIL # 0.1 TH/MM3 (0-0.2); BASOPHIL % 0.4 % (0.0-2.0); EOSINOPHIL # 0.1 TH/MM3 (0-0.4); EOSINOPHIL % 0.5 % (0.0-4.0); HEMATOCRIT 34.7 % (35.0-46.0); LYMPH % 7.7 % (9.0-44.0); LYMPHOCYTE # 1.8 TH/MM3 (1.0-4.8); MEAN CORPUSCULAR HEMOGLOBIN 24.6 PG (27.0-34.0); MEAN CORPUSCULAR HGB CONC 32.3 % (32.0-36.0); MONO % 12.7 % (0.0-8.0); NEUT % 78.7 % (16.0-70.0); PLATELET COUNT 220 TH/MM3 (150-450); RED BLOOD COUNT 4.56 MIL/MM3 (4.00-5.30); RED CELL DISTRIBUTION WIDTH 25.1 % (11.6-17.2); WHITE BLOOD COUNT 23.3 TH/MM3 (4.0-11.0)
[2016-10-17 13:14] LABS: HEMO FLAGS AUTO DIFF
[2016-10-17 14:19] LABS: BANDS 8 % (0-6); EOSINOPHILS 1 % (0-4); METAMYELOCYTES 2 % (0-1); NEUTROPHIL # MANUAL DIFF 22.1 TH/MM3 (1.8-7.7); PLATELET ESTIMATE SMEAR NORMAL (NORMAL); PLATELET MORPHOLOGY NORMAL (NORMAL); POLYS (SEG NEUTROPHILS) 85 % (16-70); SCAN/DIFF FINAL DIFF MANUAL; WBC DIFF SAMPLE 100
[2016-10-18] VITALS (16 sets, daily range): BP systolic 125–159; BP diastolic 60–78; PULSE 84–123; RESP 18–20; TEMP 96.1–98.3; O2SAT 96–99
[2016-10-18 06:50] LABS: AUTOMATED NEUTROPHIL # 10.8 TH/MM3 (1.8-7.7); BASOPHIL # 0.1 TH/MM3 (0-0.2); BASOPHIL % 0.5 % (0.0-2.0); EOSINOPHIL # 0.2 TH/MM3 (0-0.4); EOSINOPHIL % 1.1 % (0.0-4.0); LYMPH % 10.4 % (9.0-44.0); LYMPHOCYTE # 1.5 TH/MM3 (1.0-4.8); MEAN CELL VOLUME 76.8 FL (80.0-100.0); MEAN CORPUSCULAR HEMOGLOBIN 24.1 PG (27.0-34.0); MEAN CORPUSCULAR HGB CONC 31.4 % (32.0-36.0); MONO % 12.9 % (0.0-8.0); NEUT % 75.1 % (16.0-70.0); PLATELET COUNT 190 TH/MM3 (150-450); RED BLOOD COUNT 4.04 MIL/MM3 (4.00-5.30); RED CELL DISTRIBUTION WIDTH 24.9 % (11.6-17.2); WHITE BLOOD COUNT 14.4 TH/MM3 (4.0-11.0)
[2016-10-18 06:55] LABS: HEMO FLAGS AUTO DIFF
[2016-10-18 07:18] LABS: BICARBONATE 27.7 MEQ/L (21.0-32.0); POTASSIUM 4.2 MEQ/L (3.5-5.1)
[2016-10-18 08:36] LABS: BANDS 8 % (0-6); EOSINOPHILS 1 % (0-4); MYELOCYTES 3 % (0-0); NEUTROPHIL # MANUAL DIFF 10.5 TH/MM3 (1.8-7.7); POLYS (SEG NEUTROPHILS) 62 % (16-70); WBC DIFF SAMPLE 100
[2016-10-18 08:37] LABS: PLATELET ESTIMATE SMEAR NORMAL (NORMAL); PLATELET MORPHOLOGY NORMAL (NORMAL); SCAN/DIFF FINAL DIFF MANUAL
[2016-10-18] MEDS: FUROSEMIDE 20 MG/2 ML VIAL IV PUSH SCH ×2 (08:44→21:23)
[2016-10-18] MEDS: SODIUM CHLORIDE 0.9% FLUSH 5 ML FLUSH IVF SCH ×2 (08:45→21:00)
[2016-10-18] MEDS: POTASSIUM CHLORIDE 25 MEQ EFFERVESCENT TAB PO SCH (08:45)
[2016-10-18] MEDS: LOSARTAN 25 MG TAB PO SCH (08:45)
[2016-10-18] MEDS: PANTOPRAZOLE SODIUM 40 MG VIAL IVP SCH (08:45)
[2016-10-18] MEDS: HEPARIN SODIUM - SQ 10,000 UNITS/ML VIAL SQ SCH ×2 (08:45→21:23)
[2016-10-18] MEDS: LEVOFLOXACIN 500 MG PREMIX INJ 100 ML IV SCH (08:46)
[2016-10-18] MEDS: D5-NS + KCL 20 MEQ INJ 1,000 ML IV SCH (10:54)
--- NOTE | 2016-10-18 11:13 | HHI.PR ---
Subjective Remarks In the chair. Says she did pass gas today. Feels bloated. Not much abdominal pain. No fever or chills. No n/v. Has appetite. Objective Vitals Vital Signs Date Time Temp Pulse Resp B/P Pulse Ox O2 Delivery O2 Flow Rate FiO2 10/18/16 10:10 105 10/18/16 09:00 100 10/18/16 08:30 98.0 89 18 147/64 98 10/18/16 08:30 88 10/18/16 06:00 99 10/18/16 04:00 98.3 84 18 137/62 97 10/18/16 04:00 84 10/18/16 03:00 85 10/18/16 02:00 86 10/18/16 01:00 123 10/18/16 00:00 98.2 86 18 135/62 99 10/18/16 00:00 86 10/17/16 23:00 88 10/17/16 22:00 87 10/17/16 21:00 89 10/17/16 20:00 98.2 99 18 148/59 97 10/17/16 20:00 99 10/17/16 20:00 99 10/17/16 18:03 106 10/17/16 17:30 92 10/17/16 16:00 98 10/17/16 15:55 98.0 101 19 134/60 96 10/17/16 15:55 109 10/17/16 14:00 98 10/17/16 13:00 100 10/17/16 12:00 98 10/17/16 11:30 98.5 94 19 158/65 96 I/O 10/17/16 10/17/16 10/17/16 10/18/16 10/18/16 10/18/16 06:59 14:59 22:59 06:59 14:59 22:59 Intake Total 1140 ml 930 ml 1140 ml Output Total 1000 ml 980 ml 1200 ml Balance 140 ml -50 ml -60 ml Intake Oral 240 ml 930 ml 240 ml IV Total 900 ml 900 ml Output Urine Total 1000 ml 980 ml 1200 ml # Bowel Movements 0 Result Diagram: 10/18/16 0630 10/18/16 0630 Imaging Last Impressions Chest X-Ray 10/16/16 0000 Signed Impressions: Service Date/Time: Sunday, October 16, 2016 10:30 - CONCLUSION: No acute cardiopulmonary abnormality is identified. Demetrius Selby MD Abdomen/Pelvis CT 10/06/16 0712 Signed Impressions: Service Date/Time: Thursday, October 06, 2016 11:36 - CONCLUSION: 1. Thick-walled sigmoid colon raising possibility of colitis, diverticulitis or possible colonic neoplasm. Colonoscopy may be helpful for further evaluation if clinically indicated. 2. Persistent moderate ureteropelvicaliectasis on the left. 3. Stable left hepatic lobe mass measuring 7.6 x 7.4 cm. 4. Minimal ascites within the abdomen and pelvis. 5. Tiny right pleural effusion with adjacent compressive atelectasis. German Knutson MD Objective Remarks GENERAL: laying comfortable in bed in NAD CARDIOVASCULAR: Regular rate and rhythm without murmurs, gallops, or rubs. RESPIRATORY: Breath sounds equal bilaterally. No accessory muscle use. GASTROINTESTINAL: Abdomen soft, non-tender, nondistended. MUSCULOSKELETAL: No cyanosis, or edema. BACK: Nontender without obvious deformity. No CVA tenderness. 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 Deleon with biopsy. Pending biopsy. Surgical oncologists consulted Dr. Davidson. Per his recommendation to proceed with surgery for primary tumor followed by systemic chemo if signs of significant metastatic disease. If no other disease identified outside of hepatic lesion, then separate surgical resection. Sigmoid colon cancer with liver metastases S/P Exploratory laparotomy with sigmoid resection with primary anastomosis and small bowel resection as well as takedown of the hepatic flexure by Dr Eladio Deleon Oncologist is following. Advance diet as tolerated. Leukocytosis, without signs of infection. Poss reactive. Will monitor. Will check CXR and UA negative for infection. Encourage IS. HTN Labile. Due to component of anxiety. Continue with home regimen. Hold BP meds if low BP. Received 1L bolus NS IVF as noted with low UOP. patient was also with decreased intake as NPO for surgery. UOP is better, BP is better controlled. Monitor. Hypokalemia Most likely secondary to decreased oral intake and emesis. Replenish as needed. Anemia -iron deficient, starting on oral replacement as well as a one-time dose of Venofer. Anxiety-Situational. Ativan when necessary. Discharge Planning Pending improvement, s/p surgical resection of tumor (plan for OR on 10/14/16) Discussed with the patient, nurse Mary Beth Malloy MD Oct 18, 2016 11:13
--- NOTE | 2016-10-18 14:08 | HHI.PR ---
Subjective Remarks POD#4 s/p ex lap, ismael, lar - Sigmoid Colon cancer with mets to liver Hungry, feels well Objective Vital Signs Date Time Temp Pulse Resp B/P Pulse Ox O2 Delivery O2 Flow Rate FiO2 10/18/16 13:27 97 10/18/16 12:14 95 10/18/16 11:15 106 10/18/16 11:15 98.2 104 18 155/60 99 10/18/16 10:10 105 10/18/16 09:00 100 10/18/16 08:30 98.0 89 18 147/64 98 10/18/16 08:30 88 10/18/16 06:00 99 10/18/16 04:00 98.3 84 18 137/62 97 10/18/16 04:00 84 10/18/16 03:00 85 10/18/16 02:00 86 10/18/16 01:00 123 10/18/16 00:00 98.2 86 18 135/62 99 10/18/16 00:00 86 10/17/16 23:00 88 10/17/16 22:00 87 10/17/16 21:00 89 10/17/16 20:00 98.2 99 18 148/59 97 10/17/16 20:00 99 10/17/16 20:00 99 10/17/16 18:03 106 10/17/16 17:30 92 10/17/16 16:00 98 10/17/16 15:55 98.0 101 19 134/60 96 10/17/16 15:55 109 I/O 10/17/16 10/17/16 10/17/16 10/18/16 10/18/16 10/18/16 06:59 14:59 22:59 06:59 14:59 22:59 Intake Total 1140 ml 930 ml 1140 ml Output Total 1000 ml 980 ml 1200 ml Balance 140 ml -50 ml -60 ml Intake Oral 240 ml 930 ml 240 ml IV Total 900 ml 900 ml Output Urine Total 1000 ml 980 ml 1200 ml # Bowel Movements 0 Result Diagram: 10/18/16 0630 10/18/16 0630 Objective Remarks Abdomen soft, non distended, nontender Wound clean with serous drainage decreasing Assessment and Plan Assessment and Plan Doing well Advance diet D/C tele IV D/C simposn d/c planning - will plan for inpatient rehab Fabiola Deleon MD Oct 18, 2016 14:08
[2016-10-19] VITALS: BP 134/61; PULSE 103; RESP 18; TEMP 96.7; O2SAT 96
[2016-10-19 08:00] VITALS: BP 140/63; PULSE 89; RESP 20; TEMP 95.5; O2SAT 97
[2016-10-19] MEDS: LOSARTAN 25 MG TAB PO SCH (09:09)
[2016-10-19] MEDS: POTASSIUM CHLORIDE 25 MEQ EFFERVESCENT TAB PO SCH (09:09)
[2016-10-19] MEDS: PANTOPRAZOLE SODIUM 40 MG VIAL IVP SCH (09:10)
[2016-10-19] MEDS: SODIUM CHLORIDE 0.9% FLUSH 5 ML FLUSH IVF SCH (09:10)
[2016-10-19] MEDS: FUROSEMIDE 20 MG/2 ML VIAL IV PUSH SCH ×2 (09:10→13:05)
[2016-10-19] MEDS: HEPARIN SODIUM - SQ 10,000 UNITS/ML VIAL SQ SCH (09:10)
[2016-10-19] MEDS: LEVOFLOXACIN 500 MG PREMIX INJ 100 ML IV SCH (09:12)
--- NOTE | 2016-10-19 09:26 | HHI.PR ---
Subjective Remarks POD#4 s/p ex lap, ismael, lar - Sigmoid Colon cancer with mets to liver Comfortable Objective Vital Signs Date Time Temp Pulse Resp B/P Pulse Ox O2 Delivery O2 Flow Rate FiO2 10/19/16 08:00 95.5 89 20 140/63 97 10/19/16 00:00 96.7 103 18 134/61 96 10/18/16 20:00 96.1 100 18 132/61 97 10/18/16 16:31 97.0 107 20 125/60 96 10/18/16 15:19 98.0 102 18 159/78 99 10/18/16 14:18 92 10/18/16 13:27 97 10/18/16 12:14 95 10/18/16 11:15 106 10/18/16 11:15 98.2 104 18 155/60 99 10/18/16 10:10 105 I/O 10/18/16 10/18/16 10/18/16 10/19/16 10/19/16 10/19/16 06:59 14:59 22:59 06:59 14:59 22:59 Intake Total 1140 ml 1360 ml 120 ml Output Total 1200 ml 1520 ml 0 ml Balance -60 ml -160 ml 120 ml Intake Oral 240 ml 660 ml 120 ml IV Total 900 ml 700 ml Output Urine Total 1200 ml 1520 ml 0 ml # Voids 1 # Bowel Movements 2 Result Diagram: 10/18/16 0630 10/18/16 0630 Objective Remarks Abdomen soft, non distended, nontender Wound clean with slight serous drainage Bilateral lower extremities with 2+ edema Assessment and Plan Assessment and Plan Increase lasix Plan for transfer to rehab tomorrow, if possible Fabiola Deleon MD Oct 19, 2016 09:26
[2016-10-19 12:00] VITALS: BP 109/56; PULSE 104; RESP 20; TEMP 96.5; O2SAT 97
[2016-10-19] MEDS: ONDANSETRON HCL 4 MG/2 ML VIAL IV PRN (13:09)
--- NOTE | 2016-10-19 13:43 | HHI.PR ---
Subjective Remarks With LE edema. She has a good UOP. No abd pain. Tolerates regular food. No v/d/ c. Abdominal pain is controlled by meds. Says she felt nauseated after she had K supplement. Objective Vitals Vital Signs Date Time Temp Pulse Resp B/P Pulse Ox O2 Delivery O2 Flow Rate FiO2 10/19/16 12:00 96.5 104 20 109/56 97 10/19/16 08:00 95.5 89 20 140/63 97 10/19/16 00:00 96.7 103 18 134/61 96 10/18/16 20:00 96.1 100 18 132/61 97 10/18/16 16:31 97.0 107 20 125/60 96 10/18/16 15:19 98.0 102 18 159/78 99 10/18/16 14:18 92 I/O 10/18/16 10/18/16 10/18/16 10/19/16 10/19/16 10/19/16 07:00 15:00 23:00 07:00 15:00 23:00 Intake Total 1140 ml 1360 ml 120 ml Output Total 1200 ml 1520 ml 0 ml Balance -60 ml -160 ml 120 ml Intake Oral 240 ml 660 ml 120 ml IV Total 900 ml 700 ml Output Urine Total 1200 ml 1520 ml 0 ml # Voids 1 # Bowel Movements 2 Result Diagram: 10/18/16 0630 10/18/16 0630 Imaging Last Impressions Chest X-Ray 10/16/16 0000 Signed Impressions: Service Date/Time: Sunday, October 16, 2016 10:30 - CONCLUSION: No acute cardiopulmonary abnormality is identified. Demetrius Selby MD Abdomen/Pelvis CT 10/06/16 0712 Signed Impressions: Service Date/Time: Thursday, October 06, 2016 11:36 - CONCLUSION: 1. Thick-walled sigmoid colon raising possibility of colitis, diverticulitis or possible colonic neoplasm. Colonoscopy may be helpful for further evaluation if clinically indicated. 2. Persistent moderate ureteropelvicaliectasis on the left. 3. Stable left hepatic lobe mass measuring 7.6 x 7.4 cm. 4. Minimal ascites within the abdomen and pelvis. 5. Tiny right pleural effusion with adjacent compressive atelectasis. German Knutson MD Objective Remarks GENERAL: laying comfortable in bed in NAD CARDIOVASCULAR: Regular rate and rhythm without murmurs, gallops, or rubs. RESPIRATORY: Breath sounds equal bilaterally. No accessory muscle use. GASTROINTESTINAL: Abdomen soft, non-tender, nondistended. MUSCULOSKELETAL: No cyanosis, or edema. BACK: Nontender without obvious deformity. No CVA tenderness. 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 Deleon with biopsy. Pending biopsy. Surgical oncologists consulted Dr. Davidson. Per his recommendation to proceed with surgery for primary tumor followed by systemic chemo if signs of significant metastatic disease. If no other disease identified outside of hepatic lesion, then separate surgical resection. Sigmoid colon cancer with liver metastases S/P Exploratory laparotomy with sigmoid resection with primary anastomosis and small bowel resection as well as takedown of the hepatic flexure by Dr Eladio Deleon Oncologist is following. Advance diet as tolerated. Leukocytosis, without signs of infection. Poss reactive. Will monitor. Will check CXR and UA negative for infection. Encourage IS. HTN Labile. Due to component of anxiety. Continue with home regimen. Hold BP meds if low BP. Received 1L bolus NS IVF as noted with low UOP. patient was also with decreased intake as NPO for surgery. UOP is better, BP is better controlled. Monitor. LE edema. On lasix. Monitor UOP. Monitor closely kidney function. Hypokalemia Most likely secondary to decreased oral intake and emesis. Replenish as needed. Anemia -iron deficient, starting on oral replacement as well as a one-time dose of Venofer. Anxiety-Situational. Ativan when necessary. Discharge Planning Pending improvement, s/p surgical resection of tumor ( OR on 10/14/16) Discussed with the patient, nurse Can DC tomorrow per colorectal surgeon. Mary Beth Malloy MD Oct 19, 2016 13:43
[2016-10-19] MEDS ORDERED: LORA-392 PO (13:44)
[2016-10-19] MEDS ORDERED: ULTR50TA5 PO (13:44)
--- NOTE | 2016-10-19 13:44 | HHI.DS ---
Discharge Summary Admission Date Oct 06, 2016 at 12:39 Discharge Date: Oct 19, 2016 Admitting Diagnosis SIGMOID DIVERTICULITIS (1) Cancer of sigmoid colon ICD Code: C18.7 Diagnosis: Principal (2) Liver mass, left lobe ICD Code: R16.0 Diagnosis: Principal (3) Sigmoid diverticulitis ICD Code: K57.32 Diagnosis: Secondary (4) Hypokalemia ICD Code: E87.6 Diagnosis: Secondary (5) Anemia ICD Code: D64.9 Diagnosis: Secondary Procedures Sigmoid colon cancer with liver metastases S/P Exploratory laparotomy with sigmoid resection with primary anastomosis and small bowel resection as well as takedown of the hepatic flexure by Dr Chin Deleon Brief History - From Admission 80 WF being admitted for sigmoid diverticulitis. Pt was in her USOH until a yesterday evening when her chronic lower abd symptoms began worsening with lower abd pain along with fevers, chills, and generalized weakness. Pt states she woke up at 3 am with fever and chills and weakness and worsening nausea. At that point she had her call evac. Pt states that she received some nausea medication by EMS which provided good relief. At this point in time she states that now her nausea and chills have resolved. CT scan of the ER showing sigmoid colon thickening along with an elevated white count in the 20s and a bandemia of 7%. Vital signs stable, afebrile. Patient was discharged 2 weeks ago with an episode of diverticulitis at that time; however she only took her Levaquin and Flagyl for about 2-3 days (while prescription regimen was for 7 days) due to perceived adverse effects of nausea and decreased appetite. She says that her abdominal discomfort and pain was minimal after is continuing the antibiotics but her loose stools/diarrhea persisted. Has been taking her MiraLAX every day. Her appetite had slightly improved off of the medications but became reduced again in the past few days. On her last admission a CT-guided liver biopsy was attempted but the specimen was insufficient to make a proper diagnosis (malignancy versus benign versus abscess) regarding the detected necrotic tissue. CBC/BMP: 10/18/16 0630 10/18/16 0630 Significant Findings Laboratory Tests Test 10/17/16 10/17/16 10/18/16 09:00 13:00 06:30 Chloride Level 111 MEQ/L 108 MEQ/L (98-107) (98-107) Random Glucose 118 MG/DL 112 MG/DL (74-106) (74-106) Calcium Level 7.6 MG/DL 8.2 MG/DL (8.5-10.1) (8.5-10.1) White Blood Count 23.3 TH/MM3 14.4 TH/MM3 (4.0-11.0) (4.0-11.0) Hemoglobin 11.2 GM/DL 9.7 GM/DL (11.6-15.3) (11.6-15.3) Hematocrit 34.7 % 31.0 % (35.0-46.0) (35.0-46.0) Mean Corpuscular Volume 76.0 FL 76.8 FL (80.0-100.0) (80.0-100.0) Mean Corpuscular Hemoglobin 24.6 PG 24.1 PG (27.0-34.0) (27.0-34.0) Red Cell Distribution Width 25.1 % 24.9 % (11.6-17.2) (11.6-17.2) Neutrophils (%) (Auto) 78.7 % 75.1 % (16.0-70.0) (16.0-70.0) Lymphocytes (%) (Auto) 7.7 % (9.0-44.0) Monocytes (%) (Auto) 12.7 % 12.9 % (0.0-8.0) (0.0-8.0) Neutrophils # (Auto) 18.4 TH/MM3 10.8 TH/MM3 (1.8-7.7) (1.8-7.7) Monocytes # (Auto) 3.0 TH/MM3 1.9 TH/MM3 (0-0.9) (0-0.9) Neutrophils % (Manual) 85 % (16-70) Band Neutrophils % 8 % (0-6) 8 % (0-6) Lymphocytes % 2 % (9-44) Neutrophils # (Manual) 22.1 TH/MM3 10.5 TH/MM3 (1.8-7.7) (1.8-7.7) Metamyelocytes 2 % (0-1) Mean Corpuscular Hemoglobin 31.4 % Concent (32.0-36.0) Monocytes % 11 % (0-8) Myelocytes 3 % (0-0) Estimat Glomerular Filtration 83 ML/MIN (>89) Rate Imaging Last Impressions Chest X-Ray 10/16/16 0000 Signed Impressions: Service Date/Time: Sunday, October 16, 2016 10:30 - CONCLUSION: No acute cardiopulmonary abnormality is identified. Demetrius Selby MD Abdomen/Pelvis CT 10/06/16 0712 Signed Impressions: Service Date/Time: Thursday, October 06, 2016 11:36 - CONCLUSION: 1. Thick-walled sigmoid colon raising possibility of colitis, diverticulitis or possible colonic neoplasm. Colonoscopy may be helpful for further evaluation if clinically indicated. 2. Persistent moderate ureteropelvicaliectasis on the left. 3. Stable left hepatic lobe mass measuring 7.6 x 7.4 cm. 4. Minimal ascites within the abdomen and pelvis. 5. Tiny right pleural effusion with adjacent compressive atelectasis. German Knutson MD PE at Discharge PE alert Abd - soft, wound dry, min tympany Hospital Course 80 -year-old white female who was admitted due to chronic diarrhea that was thought to be due to diverticulitis: Patient is found with sigmoid colon cancer with metastatic lesion to the left lobe of the liver. Colosurgeon and hem/onc consulted. Sigmoid colon cancer with liver metastases S/P Exploratory laparotomy with sigmoid resection with primary anastomosis and small bowel resection as well as takedown of the hepatic flexure by Dr Eladio Deleon. patient improved, was DC to SNF in stable condition to follow up as OP with PCP and consultants. 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 Deleon with biopsy. Pending biopsy. Surgical oncologists consulted Dr. Davidson. Per his recommendation to proceed with surgery for primary tumor followed by systemic chemo if signs of significant metastatic disease. If no other disease identified outside of hepatic lesion, then separate surgical resection. Sigmoid colon cancer with liver metastases S/P Exploratory laparotomy with sigmoid resection with primary anastomosis and small bowel resection as well as takedown of the hepatic flexure by Dr Eladio Deleon Oncologist is following. Advance diet as tolerated. Leukocytosis, without signs of infection. Poss reactive. Will monitor. Will check CXR and UA negative for infection. Encourage IS. HTN Labile. Due to component of anxiety. Continue with home regimen. Hold BP meds if low BP. Received 1L bolus NS IVF as noted with low UOP. patient was also with decreased intake as NPO for surgery. UOP is better, BP is better controlled. Monitor. LE edema. On lasix. Monitor UOP. Monitor closely kidney function. Hypokalemia Most likely secondary to decreased oral intake and emesis. Replenish as needed. Anemia -iron deficient, starting on oral replacement as well as a one-time dose of Venofer. Anxiety-Situational. Ativan when necessary. Discharge Planning Pending improvement, s/p surgical resection of tumor ( OR on 10/14/16) Discussed with the patient, nurse Pt Condition on Discharge: Stable Discharge Disposition: Discharge to SNF Discharge Time: > 30 minutes Discharge Instructions DIET: Follow Instructions for: As Tolerated, No Restrictions Activities you can perform: Regular-No Restrictions Follow up Referrals: Colorectal Surgery - 1 Week with Fabiola Deleon MD Oncology - 3-5 Days PCP Follow-up - 3-5 Days New Medications: Lorazepam (Ativan) 0.5 Mg Tab 0.5 MG PO Q12H PRN anxiety #20 TAB Continued Medications: Zbyg-Hcwokait-Uheuxixj (Flintstones Complete) 60 Mg Tab 1 TAB CHEW DAILY supp Days 30 EA Losartan (Losartan) 25 Mg Tab 25 MG PO DAILY Blood Pressure Management #30 Ref 0 TAB Omeprazole (Omeprazole) 20 Mg Tab 20 MG PO DAILY #30 Ref 0 TAB Ondansetron Liq (Zofran Liq) 4 Mg/5 Ml Soln 4 MG PO Q6H PRN NAUSEA OR VOMITING Days 7 Ref 0 ML Polyethylene Glycol 3350 Powder (Polyethylene Glycol 3350 Powder) 17 Gm Pow 17 GM PO DAILY BM Days 30 BOTTLE Potassium Bicarb-Chloride Effervescent (Effervescent Potassium Chloride 25 Meq) 25 Meq Tab 25 MEQ PO DAILY elecrep #15 TAB Tramadol (Ultram) 50 Mg Tab 50 MG PO Q8H PRN PAIN #20 Ref 0 TAB (This prescription has been renewed) Mary Beth Malloy MD Oct 19, 2016 13:44
--- NOTE | 2016-10-19 13:46 | HHI.FF ---
Face to Face Verification Diagnosis: (1) Hypokalemia (2) Anemia (3) Diverticulitis (4) Leukocytosis (5) Sigmoid diverticulitis (6) Liver mass, left lobe (7) GERD with esophagitis Physical Therapy Order: Evaluate and Treat Home Health Nursing Order: Medical education Signs/symptoms of disease process Medication education-adverse effect Nursing assessment with vital signs I have seen patient Molly Qiu on 10/19/16. My clinical findings support the need for the requested home health care services because: Ltd mobility - disease progression Patient has SOB I certify that my clinical findings support that this patient is homebound because: Post-op weakness Mary Beth Malloy MD Oct 19, 2016 13:46
[2016-10-19 16:00] VITALS: BP 106/48; PULSE 104; RESP 18; TEMP 97.3; O2SAT 95
--- NOTE | 2016-10-24 17:27 | PQ ---
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 The patient's Clinical Indicators include: Pathology report from 10/14/16 procedure (sigmoid colon resection) documents: REGIONAL LYMPH NODES: NUMBER OF LYMPH NODES INVOLVED: 3 NUMBER OF LYMPH NODES EXAMINED: 5 (3/5) PATHOLOGIC STAGE: pT4a, pN1b Query created by: Ninoska Hurley on 10/20/2016 11:40 AM RESPONSE TEXT: Agree with pathology reports, however patient has an appointment with hem/onc as OP for final review Electronically signed by: Mary Beth Malloy MD 10/24/2016 5:23 PM
== END 2016-10-19 17:02 | DRG 330 ==
LOC: NEPC 06:16 → NEDA 12:39 → OBSVTOIN 12:39 → HOCB 17:25 → HCIS 10-14 21:36 → HCIN 10-14 22:31 → N07B 10-18 16:10
PROVIDERS: ADMIT Hospitalist; ATTEND Hospitalist
PROC: 0DBN8ZX Excision of Sigmoid Colon, Via Natural or Artificial Opening Endoscopic, Diagnostic (ICD-10-PCS; 2016-10-08)
PROC: 0DBB0ZZ Excision of Ileum, Open Approach (ICD-10-PCS; 2016-10-14)
PROC: 0DTN0ZZ Resection of Sigmoid Colon, Open Approach (ICD-10-PCS; principal; 2016-10-14 17:50)
DX: C18.7 Malignant neoplasm of sigmoid colon (principal); C78.7 Secondary malignant neoplasm of liver and intrahepatic bile duct; C77.2 Secondary and unspecified malignant neoplasm of intra-abdominal lymph nodes; K57.32 Diverticulitis of large intestine without perforation or abscess without bleeding; E87.6 Hypokalemia; I10 Essential (primary) hypertension; D50.9 Iron deficiency anemia, unspecified; R73.03 Prediabetes; F41.9 Anxiety disorder, unspecified; R60.0 Localized edema; Z87.891 Personal history of nicotine dependence
CPT/HCPCS: 71010; 74176; 76937; 80048; 80053; 81001; 82550; 82728; 83540; 83550; 83605; 83690; 83735; 84155; 84484; 85007; 85025; 85027; 85610; 85730; 87086; 87493; 88305; 88307; 93005; 94150; 96365; 96366; 96375; C9113; J0690; J1170; J1644; J1650; J1756; J1885; J1940; J1956; J2270; J2370; J2405; J2710; J3010; J3480; J7030; J7040

== ENCOUNTER 2016-12-01 05:53 | Day surgery (SDC) | payer OTHER ==
[~2016-12-01] VITALS: Ht 228.6 cm; Wt 57.7 kg
[~2016-12-01 05:53] MED LIST changes: -LEVO25SO PO; +LORA-392 PO; -METR-1 PO
[2016-12-01 06:58] VITALS: BP 136/67; PULSE 82; RESP 18; TEMP 97.7; O2SAT 97
[2016-12-01] MEDS ORDERED: VANCOMYCIN 1000 MG/NS 250 ML - implanted port/tunneled catheter IV SCH ×2 (07:15)
[2016-12-01] MEDS ORDERED: SODIUM CHLORIDE 0.9% 1000 ML IV SCH (07:15)
[2016-12-01] MEDS ORDERED: CHLORHEXIDINE GLUCONATE 2 % 1 PACK (2 CLOTHS) TOPICAL SCH (07:15)
[2016-12-01] MEDS ORDERED: ceFAZolin 2 GM PREMIX 50 ML - implanted port/tunneled catheter insertion IV SCH (07:15)
[2016-12-01] MEDS ORDERED: POVIDONE IODINE 5% (ANTISEPSIS KIT) 4 APPLICATIONS EACH NARE SCH (07:15)
[2016-12-01 07:41] LABS: HEMATOCRIT 33.2 % (35.0-46.0); MEAN CELL VOLUME 84.1 FL (80.0-100.0); MEAN CORPUSCULAR HEMOGLOBIN 26.4 PG (27.0-34.0); MEAN CORPUSCULAR HGB CONC 31.3 % (32.0-36.0); PLATELET COUNT 179 TH/MM3 (150-450); RED BLOOD COUNT 3.95 MIL/MM3 (4.00-5.30); RED CELL DISTRIBUTION WIDTH 21.4 % (11.6-17.2); WHITE BLOOD COUNT 15.8 TH/MM3 (4.0-11.0)
[2016-12-01 07:45] LABS: HEMO FLAGS AUTO DIFF
[2016-12-01 07:56] LABS: APTT (PATIENT) 25.2 SEC (24.3-30.1); INTERNATIONAL NORMALIZED RATIO 1.1 RATIO; PROTHROMBIN TIME - PATIENT 11.7 SEC (9.8-11.6)
[2016-12-01] MEDS ORDERED: MIDAZOLAM HCL 5 MG/5 ML VIAL ONE (07:59)
[2016-12-01 08:15] LABS: BANDS 10 % (0-6); NEUTROPHIL # MANUAL DIFF 12.8 TH/MM3 (1.8-7.7); PLATELET ESTIMATE SMEAR NORMAL (NORMAL); PLATELET MORPHOLOGY NORMAL (NORMAL); POLYS (SEG NEUTROPHILS) 71 % (16-70); SCAN/DIFF FINAL DIFF MANUAL; WBC DIFF SAMPLE 100
[2016-12-01] MEDS ORDERED: ONDANSETRON HCL 4 MG/2 ML VIAL ONE (08:19)
[2016-12-01] MEDS ORDERED: LORazepam 2 MG/ML VIAL ONE (08:49)
--- NOTE | 2016-12-01 09:08 | PD.RAD ---
Post Procedure Progress Note Pre Procedure Diagnosis: (1) Liver mass, left lobe (2) Cancer of sigmoid colon Post Procedure Diagnosis: (1) Liver mass, left lobe (2) Cancer of sigmoid colon Procedure Date: Dec 01, 2016 Supervising Radiologist: Tone Nieves Estimated blood loss: 2CC Anesthesia: Local, Conscious Sedation Plan of Activity Patient to Unit: ROPU Patient Condition: Fair Additional Comments: Port placed via the right subclavian vein. Catheter in good position OK for use Full dictated report to follow See PACS Report for procedural detail/treatment Tone Nieves MD Dec 01, 2016 09:08
[2016-12-01 09:15] VITALS: BP 131/64; PULSE 86; RESP 16; TEMP 97.7; O2SAT 94
[2016-12-01] MEDS ORDERED: SODIUM CHLORIDE 0.9% FLUSH 10 ML FLUSH IVF PRN (09:15)
[2016-12-01 09:30] VITALS: BP 123/63; PULSE 85; RESP 16; O2SAT 92
[2016-12-01 10:00] VITALS: BP 112/53; PULSE 84; RESP 18; O2SAT 97
--- NOTE | 2016-12-01 10:05 | RADRPT ---
EXAM DATE/TIME: 12/01/2016 08:10 [facility] COMPARISON: No previous studies available for comparison. INDICATIONS : Patient with a history of colon cancer, needs chemotherapy. MEDICAL HISTORY : Gastritis/reflux HTN Diverticulitis SURGICAL HISTORY : Gallbladder surgery Appendectomy Total hysterectomy Liver biopsy ENCOUNTER: Initial ACUITY: 1 month PAIN SCORE: 0/10 FLUORO TIME: 0.9 minutes IMAGE SERIES: 1 SEDATION TIME: 45 minutes ACCESS: Right subclavian vein SEDATION: 1.) 4 mg midazolam (Versed) IV 2.) 200 mcg fentanyl (Sublimaze) IV 3.) 0.5mg lorazepam (Ativan) IV 4.) 4mg ondansetron (Zofran) IV Prophylactic antibiotics were administered with appropriate pre-procedure timing. Vancomycin within 2 hours of procedure, Ancef (or alternative) within 1 hour of procedure. DEVICE: 1. 8 [place] single lumen Bard Power Port PROCEDURE : 1. Continuous pulse oximetry and EKG monitoring. 2. Intravenous conscious sedation. 3. Ultrasound guidance for venous access. 4. Fluoroscopic guided implantable central venous port placement. The patient was placed supine. The neck was prepped in sterile fashion. Full sterile technique was u sed, including cap, mask, sterile gloves and gown, and a large sterile sheet. Hand hygiene and 2% ch lorhexidine Betadine was utilized per protocol for cutaneous antisepsis with appropriate dry time for site. Sterile gel and sterile probe cover were utilized for ultrasound guidance. The skin and sub cutaneous tissues were infiltrated with local anesthetic solution. Under direct ultrasound guidance, the right subclavian vein was accessed. The ultrasound images depic ting access guidance were stored and saved to PACS for permanent record. A subcutaneous pocket was c reated using blunt dissection. The port was introduced to the pocket. The catheter tubing was fed t hrough a subcutaneous tunnel to the venotomy site. The catheter tubing was cut to a suitable length and then was introduced through a valved Peel-Away sheath and positioned with catheter tubing tip at the cavo-atrial junction level. The pocket incision was closed with subcuticular Vicryl suture. Carlo ri-Strips were applied. The port was flushed and locked with heparin solution per protocol. Sterile dressing was applied to the site. The patient tolerated the procedure well. Conscious sedation was performed with the prescribed dosages and duration as above in the presence of an independent trained radiology nurse to assist in the monitoring of the patient. EKG and oximetry remained stable throughout the procedure. The patient tolerated the procedure well and there were no complications. The patient was sent to post anesthesia recovery in stable condition. CONCLUSION: Uncomplicated ultrasound and fluoroscopic guided implanted central venous port catheter placement as described in detail above. An 8 [place] Power port was placed. Tone Nieves MD on December 01, 2016 at 10:03 Board Certified Radiologist. This report was verified electronically.
[2016-12-01 10:30] VITALS: BP 130/68; PULSE 96; RESP 18; O2SAT 93
== END 2016-12-01 10:54 | disposition home or self-care (01) ==
LOC: HROP 05:53 → HRIP 06:41 → HROP 10:54
PROVIDERS: ATTEND Internal Medicine Hematology & Oncology
DX: Z45.2 Encounter for adjustment and management of vascular access device (principal); C18.7 Malignant neoplasm of sigmoid colon; R16.0 Hepatomegaly, not elsewhere classified; I10 Essential (primary) hypertension
CPT/HCPCS: 36561; 76937; 77001; 85007; 85027; 85610; 85730; 99152; 99153; C1788; J0690; J1642; J2060; J2250; J2405; J3010; J3370; J7030; J7050